=== PATIENT | female | born 1970 ===

== ENCOUNTER 2016-06-23 11:36 | Inpatient (IN) | payer OTHER ==
[2016-06-23 11:37] VITALS: BMI 32.5
--- NOTE | 2016-06-23 12:01 | ED PDOC ---
HPI: Abdomen Time Seen by Provider: 06/23/16 11:53 History Per: Patient (RUQ abd pain assoc with nausea, no vomiting or diarrhea. H /o gallstones) Onset/Duration Of Symptoms: Days (2) Current Symptoms Are (Timing): Intermittent Episodes Severity: Mild Pain Scale Rating Of: 3 Location Of Pain/Discomfort: RUQ Quality Of Discomfort: Unable To Describe Associated Symptoms: Nausea. denies: Vomiting, Diarrhea, Urinary Symptoms Exacerbating Factors: None Alleviating Factors: None Past Medical History Vital Signs: Last Vital Signs Temp 101 F H 06/23/16 11:44 Pulse 98 H 06/23/16 11:44 Resp 18 06/23/16 11:44 BP 124/86 06/23/16 11:44 Pulse Ox 100 06/23/16 12:01 - Medical History PMH: Gall Bladder Disease, Kidney Stones (questionable hx), Chronic Kidney Disease - Surgical History Surgical History: Comment Only: Cholecystectomy (pt denies) - Family History Family History: States: Unknown Family Hx - Home Medications Home Medications: Ambulatory Orders Medication Instructions Recorded Esomeprazole Magnesium [Nexium] 20 mg PO DAILY #30 barbara. 06/30/15 Dicyclomine [Bentyl] 20 mg PO Q6 PRN #12 tab 08/04/15 Famotidine [Pepcid] 40 mg PO DAILY #10 tab 08/04/15 Omeprazole 40 mg PO DAILY #30 tab 08/04/15 Ondansetron [Zofran] 4 mg PO Q8H #8 tab 08/04/15 oxyCODONE/Acetaminophen [Percocet 1 ea PO Q6 PRN #10 tab 08/04/15 5/325 mg Tab] Naproxen [Naprosyn] 500 mg PO Q12H #20 tab 10/01/15 Sulfamethoxazole/Trimethoprim 1 tab PO BID #20 tab 10/01/15 [Bactrim DS 800 mg-160 mg] Ibuprofen [Motrin] 400 mg PO Q6 #30 tab 01/20/16 Methocarbamol [Robaxin] 500 mg PO BID #16 tab 01/20/16 Naproxen 1 tab PO BID PRN #14 tab 01/25/16 diaZEpam [Valium] 5 mg PO Q6 PRN #8 tab 01/25/16 - Allergies Allergies/Adverse Reactions: Allergies Allergy/AdvReac Type Severity Reaction Status Date / Time No Known Allergies Allergy Verified 01/20/16 15:24 Review of Systems ROS Statement: Except As Marked, All Systems Reviewed And Found Negative Gastrointestinal: Positive for: Nausea, Abdominal Pain Physical Exam - Reviewed Nursing Documentation Reviewed: Yes Vital Signs Reviewed: Yes - Physical Exam Appears: Positive for: Non-toxic, No Acute Distress Head Exam: Positive for: ATRAUMATIC, NORMAL INSPECTION, NORMOCEPHALIC Skin: Positive for: Normal Color, Warm, DRY Eye Exam: Positive for: EOMI, Normal appearance, PERRL ENT: Positive for: Normal ENT Inspection Neck: Positive for: Normal, Painless ROM Cardiovascular/Chest: Positive for: Regular Rate, Rhythm Respiratory: Positive for: CNT, Normal Breath Sounds Gastrointestinal/Abdominal: Positive for: Bowel Sounds, Soft, Tenderness (Mild tenderness RUQ) Back: Positive for: Normal Inspection Extremity: Positive for: Normal ROM Neurologic/Psych: Positive for: Alert, Oriented - Laboratory Results Result Diagrams: 06/23/16 12:15 06/23/16 12:15 - ECG O2 Sat by Pulse Oximetry: 100 Disposition - Clinical Impression Clinical Impression: Cholecystitis - Patient ED Disposition Is Patient to be Admitted: Yes - Disposition Disposition Time: 15:12 Condition: FAIR - Pt Status Changed To: Hospital Disposition Of: Inpatient - Admit Certification Admit to Inpatient:: After my assessment, the patient will require hospitalization for at least two midnights. This is because of the severity of symptoms shown, intensity of services needed, and/or the medical risk in this patient being treated as an outpatient. - POA Present On Arrival: None
[2016-06-23 12:44] LABS: BASO % 0.7 % (0.0-2.0); EOS # 0.2 K/uL (0.0-0.7); HEMATOCRIT 36.1 % (34.0-47.0); LYMPH # 1.8 K/uL (1.0-4.3); LYMPH % 30.7 % (20.0-40.0); MEAN CELL VOLUME 78.6 fl (81.0-99.0); MEAN CORPUSCULAR HEMOGLOBIN 26.1 pg (27.0-31.0); MEAN CORPUSCULAR HGB CONC 33.3 g/dL (33.0-37.0); MEAN PLATELET VOLUME 9.2 fl (7.2-11.7); MONO # 0.3 K/uL (0.0-0.8); MONO % 4.3 % (0.0-10.0); NEUT # 3.6 K/uL (1.8-7.0); NEUT % 61.3 % (50.0-75.0); NRBC % 0.1 % (0.0-0.0); RED CELL DISTRIBUTION WIDTH 14.6 % (11.5-14.5); WHITE BLOOD COUNT 5.8 K/uL (4.8-10.8)
[2016-06-23 12:53] LABS: ALB/GLOB RATIO 0.9 (1.0-2.1); ALT/SGPT 40 U/L (9-52); AST/SGOT 61 U/L (14-36); BILIRUBIN,TOTAL 1.1 mg/dl (0.2-1.3); BLOOD UREA NITROGEN 14 mg/dl (7-17); CALCIUM 9.7 mg/dL (8.4-10.2); CARBON DIOXIDE 23 mmol/L (22-30); CHLORIDE 104 mmol/L (98-107); GFR AFRICAN-AMERICAN > 60; GLUCOSE,RANDOM 133 mg/dL (65-105); POTASSIUM 5.3 MMOL/L (3.6-5.0); SODIUM 144 mmol/l (132-148); TOTAL PROTEIN 9.2 G/DL (6.3-8.2)
[2016-06-23 12:55] LABS: ALKALINE PHOSPHATASE 91 U/L (38-126)
--- NOTE | 2016-06-23 14:42 | US ---
HISTORY: RUQ pain, h/o gallstones COMPARISON: Comparison is made to the previous study dated 05/19/2015 and study dated 08/04/2015 TECHNIQUE: Sonographic evaluation of the right upper quadrant of the abdomen. FINDINGS: LIVER: Measures 19.1 cm in length. Heterogeneous diffuse increased echogenicity of the liver parenchyma. No mass. No intrahepatic bile duct dilatation. GALLBLADDER: Again seen are gallstones. The gallbladder wall measures 2.8 millimeter in thickness. COMMON BILE DUCT: Measures 7.5 mm. No stones. No dilatation. PANCREAS: Unremarkable as visualized. No mass. No ductal dilatation. RIGHT KIDNEY: Measures 10.8 x 6.3 x 4.8 cm in length. Normal echogenicity. No calculus, mass, or hydronephrosis. AORTA: No aneurysmal dilatation. IVC: Unremarkable. OTHER FINDINGS: None . IMPRESSION: Re- demonstration of multiple gallstones. The possibility of acute cholecystitis is not totally excluded. If indicated further assessment by MRCP or hepatobiliary scan may be obtained. Hepatomegaly with findings suggestive of moderate hepatic steatosis.
[2016-06-23] MEDS ORDERED: Piperacillin/Tazobact 3.375 GM in Sodium Chloride 0.9% 100 ML IVPB STA (15:11)
[2016-06-23] MEDS ORDERED: Piperacillin/Tazobact 3.375 gm Inj IVPB ONE (15:46)
--- NOTE | 2016-06-23 15:50 | CP.PCM.CON ---
History of Present Illness - History of Present Illness History of Present Illness: General Surgery - Dr. Martinez 46 yo F w/ hx of gallstones presents w/ 3 days of worsening RUQ abdominal pain and fevers. Pt states she's had multiple episodes of this pain in the past and was told she had gallstones. Pt states her pain began 3 days ago, located in the RUQ radiating to the back, progressively worsening. She had associated nausea intermittently, no vomiting, and has been tolerating liquids. Pt also admits to Dizziness, mild Dysuria for the past 1 week, and Fevers since Wednesday which she has taken tylenol for. Pt denies any Headache, Diarrhea, Constipation , SOB, Chest pain. PMH: none PSH: , ankle surgery as a child No medications NKDA PT was seen in the ED. Vitals w/ temp of 101F, HR 98, BP 124/70. An U/S of the RUQ was done which showed multiple gallstones, Gb wall 2.8mm, CBD 7.5mm, no pericholecystic fluid. Surgery was consulted for possible cholecystitis. Review of Systems - Review of Systems All systems: reviewed and no additional remarkable complaints except (as per HPI ) Past Patient History - Past Social History Smoking Status: Never Smoked - RENAL Hx Chronic Kidney Disease: Yes Hx Kidney Stones: Yes (questionable hx) - GASTROINTESTINAL Hx Gall Bladder Disease: Yes - PSYCHIATRIC Hx Substance Use: No - SURGICAL HISTORY Hx Cholecystectomy: (pt denies) - ANESTHESIA Hx Anesthesia: Yes Meds Allergies/Adverse Reactions: Allergies Allergy/AdvReac Type Severity Reaction Status Date / Time No Known Allergies Allergy Verified 01/20/16 15:24 - Medications Medications: Current Medications Acetaminophen (Tylenol 650 Mg Supp) 650 mg [place] Q6 PRN PRN Reason: Fever >100.4 F Piperacillin Sod/Tazobactam (Sod 3.375 gm/ Sodium Chloride) 100 mls @ 100 mls/ hr IVPB STAT STA Stop: 06/23/16 16:10 Sodium Chloride (Sodium Chloride 0.9%) 1,000 mls @ 1,000 mls/hr IV .Q1H PEGGY Piperacillin Sod/Tazobactam (Sod 3.375 gm/ Sodium Chloride) 100 mls @ 100 mls/ hr IVPB Q6 PEGGY Morphine Sulfate (Morphine) 4 mg IVP Q4 PRN PRN Reason: Pain, moderate (4-7) Ondansetron HCl (Zofran Inj) 4 mg IVP Q4H PRN PRN Reason: Nausea/Vomiting Physical Exam - Constitutional Appears: No Acute Distress - Head Exam Head Exam: ATRAUMATIC, NORMAL INSPECTION, NORMOCEPHALIC - Eye Exam Eye Exam: Normal appearance. absent: Scleral icterus - ENT Exam ENT Exam: Mucous Membranes Dry - Respiratory Exam Respiratory Exam: NORMAL BREATHING PATTERN. absent: Respiratory Distress - Cardiovascular Exam Cardiovascular Exam: Tachycardia (90s), REGULAR RHYTHM - GI/Abdominal Exam GI & Abdominal Exam: Guarding (voluntary), Soft, Tenderness (RUQ, +Lal's sign ). absent: Distended, Firm, Hernia, Rebound, Rigid - Back Exam Back exam: CVA tenderness (R) - Neurological Exam Neurological exam: Alert, Oriented x3 - Psychiatric Exam Psychiatric exam: Normal Affect, Normal Mood - Skin Skin Exam: Dry, Intact Results - Vital Signs Recent Vital Signs: Last Vital Signs Temp 101 F H 06/23/16 11:44 Pulse 98 H 06/23/16 11:44 Resp 18 06/23/16 11:44 BP 124/86 06/23/16 11:44 Pulse Ox 100 06/23/16 15:12 - Labs Result Diagrams: 06/23/16 12:15 06/23/16 12:15 Labs: Laboratory Results - last 24 hr 06/23/16 12:15 WBC 5.8 RBC 4.59 Hgb 12.0 Hct 36.1 MCV 78.6 L MCH 26.1 L MCHC 33.3 RDW 14.6 H Plt Count 208 MPV 9.2 Neut % (Auto) 61.3 Lymph % (Auto) 30.7 [place] % (Auto) 4.3 Eos % (Auto) 3.0 Baso % (Auto) 0.7 Neut # 3.6 Lymph # 1.8 [place] # 0.3 Eos # 0.2 Baso # 0.0 Sodium 144 Potassium 5.3 H Chloride 104 Carbon Dioxide 23 Anion Gap 22 H BUN 14 Creatinine 0.6 L Est GFR ( Amer) > 60 Est GFR (Non-Af Amer) > 60 Random Glucose 133 H Calcium 9.7 Total Bilirubin 1.1 AST 61 H D ALT 40 Alkaline Phosphatase 91 Total Protein 9.2 H Albumin 4.4 Globulin 4.8 H Albumin/Globulin Ratio 0.9 L - Imaging and Cardiology US - abdomen Status: Image reviewed by me, Report reviewed by me Assessment & Plan - Assessment and Plan (Free Text) Assessment: 46 yo F w/ Gallstones, RUQ pain and Fevers, concern for acute cholecystitis -Admitted to medical service -U/S shows multiple gallstones, no wall thickening or pericholecystic fluid -Urinalysis ordered to eval. dysuria, if abnormal would consider CT to R/O pyelonephritis -Maintain NPO -IVF hydration -IV Abx -Will DW Dr. Juan Figueroa PGY2
[2016-06-23] MEDS: Sodium Chloride 0.9% 1,000 ML IV SCH ×3 (16:00→18:45)
--- NOTE | 2016-06-23 16:06 | CP.PCM.HP ---
History of Present Illness - History of Present Illness History of Present Illness: 46 yo female with no significant PMH came in with RUQ pain since 3 days ago accompanied with fever, nausea and vomiting. Pain was non-radiating and continuous since 3 days ago. Present on Admission - Present on Admission Any Indicators Present on Admission: No History of DVT/PE: No History of Uncontrolled Diabetes: No Urinary Catheter: No Decubitus Ulcer Present: No Review of Systems - Review of Systems All systems: reviewed and no additional remarkable complaints except (aside from those mentioned above, 12 point system review were negative by me) Past Patient History - Past Social History Smoking Status: Never Smoked Chewing Tobacco Use: No Cigar Use: No Alcohol: None Drugs: Denies - CARDIAC Hx Cardiac Disorders: No - PULMONARY Hx Respiratory Disorders: No - NEUROLOGICAL Hx Neurological Disorder: No - HEENT Hx HEENT Problems: No - RENAL Hx Chronic Kidney Disease: Yes Hx Kidney Stones: Yes (questionable hx) - ENDOCRINE/METABOLIC Hx Endocrine Disorders: No - HEMATOLOGICAL/ONCOLOGICAL Hx Blood Disorders: No - INTEGUMENTARY Hx Dermatological Problems: No - MUSCULOSKELETAL/RHEUMATOLOGICAL Hx Musculoskeletal Disorders: No - GASTROINTESTINAL Hx Gall Bladder Disease: Yes - GENITOURINARY/GYNECOLOGICAL Hx Genitourinary Disorders: No - PSYCHIATRIC Hx Psychophysiologic Disorder: No Hx Substance Use: No - SURGICAL HISTORY Hx Section: Yes (3 x) Hx Cholecystectomy: (pt denies) Hx Orthopedic Surgery: Yes (right foot) - ANESTHESIA Hx Anesthesia: Yes Hx Anesthesia Reactions: No Meds Allergies/Adverse Reactions: Allergies Allergy/AdvReac Type Severity Reaction Status Date / Time No Known Allergies Allergy Verified 01/20/16 15:24 Physical Exam - Constitutional Appears: No Acute Distress - Head Exam Head Exam: ATRAUMATIC - Eye Exam Eye Exam: absent: Scleral icterus - ENT Exam ENT Exam: Mucous Membranes Moist - Neck Exam Neck exam: Negative for: Meningismus - Respiratory Exam Respiratory Exam: absent: Rhonchi, Wheezes, Respiratory Distress - Cardiovascular Exam Cardiovascular Exam: REGULAR RHYTHM, +S1, +S2 - GI/Abdominal Exam GI & Abdominal Exam: Soft, Tenderness (tender right upper quadrant on palpation) . absent: Guarding, Rebound - Rectal Exam Rectal Exam: Deferred - Back Exam Back exam: absent: tenderness - Neurological Exam Neurological exam: Alert, Oriented x3 - Psychiatric Exam Psychiatric exam: Normal Affect - Skin Skin Exam: Dry, Intact Results - Vital Signs Recent Vital Signs: Last Vital Signs Temp 101 F H 06/23/16 11:44 Pulse 98 H 06/23/16 11:44 Resp 18 06/23/16 11:44 BP 124/86 06/23/16 11:44 Pulse Ox 100 06/23/16 15:12 - Labs Result Diagrams: 06/23/16 12:15 06/23/16 12:15 Assessment & Plan (1) Cholecystitis Status: Acute Comment: place on observation in med/surg. blood culture x 2. keep NPO. surgical consult called by ER. Zosyn 3.375gm IV q 6hrs. Morphine 2mg IV q 4hrs prn pain. Zofran 4mg IV q 4hrs prn for nausea
[2016-06-23] MEDS ORDERED: Sod Polystyrene Sulf 15 gm/60 ml Oral Susp PO ONE (17:39)
[2016-06-23 18:38] LABS: RBC URINE 2 /hpf (0-3); URINE BACTERIA FEW (<OCC); URINE BILIRUBIN NEGATIVE (NEGATIVE); URINE BLOOD SMALL (NEGATIVE); URINE COLOR STRAW (YELLOW); URINE GLUCOSE (UA) NEG (Normal); URINE KETONE NEGATIVE (NEGATIVE); URINE LEUKOCYTE ESTERASE TRACE Leu/uL (Negative); URINE PROTEIN NEGATIVE (NEGATIVE); URINE UROBILINOGEN 0.2-1.0 mg/dL (0.2-1.0); WBC URINE 6 /hpf (0-5)
[2016-06-23] MEDS: Piperacillin/Tazobact 3.375 GM in Sodium Chloride 0.9% 100 ML IVPB SCH (21:32)
[2016-06-24] MEDS: Piperacillin/Tazobact 3.375 GM in Sodium Chloride 0.9% 100 ML IVPB SCH ×4 (04:47→21:11)
[2016-06-24] MEDS: Sodium Chloride 0.9% 1,000 ML IV SCH ×2 (09:29→16:00)
[2016-06-24 11:22] LABS: HEMATOCRIT 32.5 % (34.0-47.0); MEAN CELL VOLUME 77.9 fl (81.0-99.0); MEAN CORPUSCULAR HEMOGLOBIN 26.3 pg (27.0-31.0); MEAN CORPUSCULAR HGB CONC 33.7 g/dL (33.0-37.0)
[2016-06-24 11:28] LABS: CHLORIDE 106 mmol/L (98-107); POTASSIUM 3.9 MMOL/L (3.6-5.0); SODIUM 143 mmol/l (132-148)
[2016-06-24 11:30] LABS: AST/SGOT 35 U/L (14-36); BILIRUBIN,TOTAL 0.7 mg/dl (0.2-1.3); CARBON DIOXIDE 26 mmol/L (22-30); GFR AFRICAN-AMERICAN > 60; PARTIAL THROMBOPLASTIN TIME 23.7 SECONDS (23.3-32.5)
[2016-06-24 11:31] LABS: ALKALINE PHOSPHATASE 88 U/L (38-126); ALT/SGPT 39 U/L (9-52); BLOOD UREA NITROGEN 11 mg/dl (7-17); CALCIUM 8.6 mg/dL (8.4-10.2); GLUCOSE,RANDOM 131 mg/dL (65-105); TOTAL PROTEIN 7.4 G/DL (6.3-8.2)
--- NOTE | 2016-06-24 11:39 | CARD ---
APPROVED REPORT EKG Measurement Heart [id number] <Conclusion> Normal sinus rhythm with sinus arrhythmia Normal ECG
--- NOTE | 2016-06-24 13:26 | MRI ---
MRCP Indication: Dilated CBD Technique: Multiplanar, multisequence MR images of the abdomen were obtained, including heavily T2 weighted MRCP images of the biliary system. Rotating maximum intensity projection images of the biliary system were generated. A total of 691 images were submitted for review. Comparison: Limited abdominal ultrasound performed 06/23/16, abdominal ultrasound performed 08/04/15 Findings: Hepatic steatosis. Hepatomegaly. Probable cholelithiasis within a contracted gallbladder. There is no intrahepatic biliary ductal dilatation. The common bile duct appears within normal limits in caliber and tapers distally. The pancreatic duct appears within normal limits of caliber. No filling defects are seen in the common bile duct or pancreatic duct. The noncontrast included portions adrenal glands, kidneys, spleen, and pancreas appear unremarkable. No bulky abdominal lymphadenopathy is seen. No ascites. No acute osseous abnormality is detected. Impression: Probable cholelithiasis within a contracted gallbladder No filling defects seen within the common bile duct which appears within normal limits of caliber. Hepatomegaly. Hepatic steatosis. Preliminary impression was provided by virtual radiologic.
--- NOTE | 2016-06-24 14:58 | CP.PCM.PN ---
Subjective - Date & Time of Evaluation Date of Evaluation: 06/24/16 Time of Evaluation: 13:45 - Subjective Subjective: Pt seen and examined. Awaiting surgery. Objective - Vital Signs/Intake and Output Vital Signs (last 24 hours): Temp Pulse Resp BP Pulse Ox 98.3 F 76 20 113/74 97 06/24/16 08:15 06/24/16 08:15 06/24/16 08:15 06/24/16 08:15 06/24/16 08:15 - Medications Medications: Current Medications Acetaminophen (Tylenol 650 Mg Supp) 650 mg [place] Q6 PRN PRN Reason: Fever >100.4 F Piperacillin Sod/Tazobactam (Sod 3.375 gm/ Sodium Chloride) 100 mls @ 100 mls/ hr IVPB Q6 PEGGY Last Admin: 06/24/16 09:26 Dose: 100 mls/hr Sodium Chloride (Sodium Chloride 0.9%) 1,000 mls @ 125 mls/hr IV .Q8H PEGGY Stop: 06/24/16 17:01 Last Admin: 06/24/16 09:29 Dose: 125 mls/hr Morphine Sulfate (Morphine) 4 mg IVP Q4 PRN PRN Reason: Pain, moderate (4-7) Ondansetron HCl (Zofran Inj) 4 mg IVP Q4H PRN PRN Reason: Nausea/Vomiting - Labs Labs: 06/24/16 11:07 06/24/16 11:07 PT 10.1 SECONDS (9.6-11.2) 06/24/16 11:07 INR 0.97 (0.92-1.08) 06/24/16 11:07 APTT 23.7 SECONDS (23.3-32.5) 06/24/16 11:07 - Constitutional Appears: No Acute Distress - Head Exam Head Exam: ATRAUMATIC - Eye Exam Eye Exam: absent: Scleral icterus - ENT Exam ENT Exam: Mucous Membranes Moist - Neck Exam Neck Exam: absent: Meningismus - Respiratory Exam Respiratory Exam: absent: Rhonchi, Wheezes, Respiratory Distress - Cardiovascular Exam Cardiovascular Exam: REGULAR RHYTHM, +S1, +S2 - GI/Abdominal Exam GI & Abdominal Exam: Soft, Tenderness (tenderness on RUQ) - Rectal Exam Rectal Exam: Deferred - Extremities Exam Extremities Exam: absent: Pedal Edema - Neurological Exam Neurological Exam: Alert, Oriented x3 - Psychiatric Exam Psychiatric exam: Normal Affect - Skin Skin Exam: Dry, Intact Assessment and Plan (1) Cholecystitis Status: Acute
[2016-06-24] MEDS ORDERED: Propofol 10 mg/ml Inj (20 ML) ONE (16:58)
[2016-06-24] MEDS ORDERED: Midazolam 2 MG/2 ML VIAL ONE (16:58)
[2016-06-24] MEDS ORDERED: Neostigmine Methylsulfate 3mg/3ml Syringe IV ONE (16:58)
[2016-06-24] MEDS ORDERED: Rocuronium 10 mg/ml (5 ml) ONE (16:58)
[2016-06-24] MEDS ORDERED: Lactated Ringer's 1,000 ML IV ONE ×2 (17:10→17:57)
--- NOTE | 2016-06-24 18:48 | PCM.SURG1 ---
Surgeon's Initial Post Op Note - Surgeon's Notes Surgeon: Dr. Vergara Air Quality Engineer: Dr. Figueroa Type of Anesthesia: General Endo Anesthesia Administered By: Nalini Pre-Operative Diagnosis: Acute Cholecystitis Operative Findings: same Post-Operative Diagnosis: same Operation Performed: Laparoscopic Cholecystectomy Specimen/Specimens Removed: gallbladder Estimated Blood Loss: EBL {In ML}: 5 Blood Products Given: N/A Drains Used: No Drains Post-Op Condition: Good Date of Surgery/Procedure: 06/24/16 Time of Surgery/Procedure: 18:48
[2016-06-24] MEDS ORDERED: DiphenhydrAMINE 50 mg/ml Inj IVP PRN (19:00)
[2016-06-24] MEDS ORDERED: HYDROmorphone 0.5 mg/0.5 ml ISec IVP PRN (19:00)
--- NOTE | 2016-06-24 22:59 | OP ---
PROCEDURE DATE: 06/24/2016 SURGEON: Dr. Vergara. FAMILY LAWYER: Dr. Figueroa. ANESTHESIA: General, Dr. Gayle. PREOPERATIVE DIAGNOSIS: Acute cholecystitis. POSTOPERATIVE DIAGNOSIS: Acute cholecystitis. PROCEDURE: Laparoscopic cholecystectomy. DESCRIPTION OF OPERATION: With the patient in the supine position under adequate general anesthesia, the abdomen was prepped and draped in the usual sterile manner. Veress needle puncture was performe d at the umbilicus with insufflation to 15 cm water pressure of CO2 and a 10 mm laparoscopic trocar w as inserted via an infraumbilical incision. Under direct vision, additional trocars were inserted in the epigastrium and costal margin. The gallbladder was identified. It was noted to be flaccid but with stones noted in the infundibular portion. The gallbladder fundus was grasped and elevated. Adh esions of the omentum to the infundibular portion of the gallbladder were taken down and the infundib ular area was grasped and retracted laterally. There was significant inflammation around the gallbla dder infundibulum as well as a caudate liver lobe, which impaired visualization of the lower portion of the gallbladder. There was noted to be a stone impacted close to the infundibular area of the gal lbladder, which then tapered below that and this portion of the gallbladder was dissected and then tr iply clipped and divided. The stump was reinforced with a Vicryl Endoloop. The cystic artery was id entified and dissected. It was triply clipped and divided and the gallbladder was dissected free of the liver bed using electrocautery. The gallbladder was placed in a specimen retrieval bag and remov ed via the umbilical port site. Omental adhesions to the area of the umbilicus were taken down to fa cilitate removal of the gallbladder and closure. The right upper quadrant was irrigated and suctione d. The pneumoperitoneum was released and the trocars were removed. The umbilical port site was clos ed with a [id number] fascial suture of 0 Vicryl. All incisions were closed with 4-0 Monocryl baeza bcuticular sutures and Steri-Strips. Dry sterile dressings were applied. The patient tolerated the procedure well and transferred to the recovery room in stable condition. Estimated blood loss for th e procedure was 5 mL. Miladys Vergara MD cc: 58 TT: 06/24/2016 22:58:56 dn
[2016-06-25] MEDS: Piperacillin/Tazobact 3.375 GM in Sodium Chloride 0.9% 100 ML IVPB SCH ×2 (04:36→10:51)
[2016-06-25 06:43] VITALS: O2SAT 97
[2016-06-25 08:02] VITALS: BP 106/71; PULSE 83; RESP 20; TEMP 99
--- NOTE | 2016-06-25 10:15 | CP.PCM.PN ---
Subjective - Date & Time of Evaluation Date of Evaluation: 06/25/16 Time of Evaluation: 10:14 - Subjective Subjective: General Surgery - Dr. Vergara Pt S&E. PERICO. Pt is doing well post-operatively. She states her pain is minimal, recieved pain medicine once overnight and felt mild nausea afterwards. She is tolerating regular diet. She has been OOB and ambulated to the bathroom. No Vomiting, F/C, SOB/Cp. Objective - Vital Signs/Intake and Output Vital Signs (last 24 hours): Temp Pulse Resp BP Pulse Ox 99.0 F 83 20 106/71 97 06/25/16 08:01 06/25/16 08:01 06/25/16 08:01 06/25/16 08:01 06/25/16 08:01 Intake and Output: 06/25/16 06/25/16 06:59 18:59 Intake Total 150 Balance 150 - Medications Medications: Current Medications Acetaminophen (Tylenol 650 Mg Supp) 650 mg [place] Q6 PRN PRN Reason: Fever >100.4 F Piperacillin Sod/Tazobactam (Sod 3.375 gm/ Sodium Chloride) 100 mls @ 100 mls/ hr IVPB Q6 PEGGY Last Admin: 06/25/16 04:36 Dose: 100 mls/hr Morphine Sulfate (Morphine) 4 mg IVP Q4 PRN PRN Reason: Pain, moderate (4-7) Last Admin: 06/25/16 08:26 Dose: 4 mg Ondansetron HCl (Zofran Inj) 4 mg IVP Q4H PRN PRN Reason: Nausea/Vomiting - Labs Labs: 06/24/16 11:07 06/24/16 11:07 PT 10.1 SECONDS (9.6-11.2) 06/24/16 11:07 INR 0.97 (0.92-1.08) 06/24/16 11:07 APTT 23.7 SECONDS (23.3-32.5) 06/24/16 11:07 - Constitutional Appears: No Acute Distress - Head Exam Head Exam: ATRAUMATIC, NORMAL INSPECTION, NORMOCEPHALIC - Respiratory Exam Respiratory Exam: NORMAL BREATHING PATTERN. absent: Respiratory Distress - Cardiovascular Exam Cardiovascular Exam: REGULAR RHYTHM - GI/Abdominal Exam GI & Abdominal Exam: Soft. absent: Distended, Guarding, Tenderness Additional comments: surgical dressings C/d/i - Neurological Exam Neurological Exam: Alert, Oriented x3 - Psychiatric Exam Psychiatric exam: Normal Affect, Normal Mood - Skin Skin Exam: Dry, Intact Assessment and Plan - Assessment and Plan (Free Text) Assessment: 46yo F s/p laparoscopic cholecystectomy, POD #1 -Pt doing well post-operatively -Clear for discharge home from surgical standpoint -Pt may resume regular diet and light activities. No heavy lifting >10lbs for at least 4 weeks. Pt may remove dressings and shower in 2 days, steri-strips to remain in place until they fall off on their own. Pt should make an appointment to see Dr. Vergara in office in [address] Jai Figueroa PGY2
--- NOTE | 2016-06-25 13:40 | CP.PCM.DIS ---
Provider - Provider Date of Admission: 06/23/16 15:12 Attending physician: Abdullahi Torres MD Consults: Dr Vergara Time Spent in preparation of Discharge (in minutes): 30 Diagnosis - Discharge Diagnosis (1) Cholecystitis Status: Acute Comment: had lap cholecystectomy yesterday and did well. able to tolerate regular food intake. able to pass flatus. for discharge today Hospital Course - Lab Results Lab Results: Most Recent Lab Values WBC 6.0 K/uL (4.8-10.8) 06/24/16 11:07 RBC 4.17 Mil/uL (3.80-5.20) 06/24/16 11:07 Hgb 10.9 g/dL (12.0-16.0) L 06/24/16 11:07 Hct 32.5 % (34.0-47.0) L 06/24/16 11:07 MCV 77.9 fl (81.0-99.0) L 06/24/16 11:07 MCH 26.3 pg (27.0-31.0) L 06/24/16 11:07 MCHC 33.7 g/dL (33.0-37.0) 06/24/16 11:07 RDW 15.0 % (11.5-14.5) H 06/24/16 11:07 Plt Count 201 K/uL (130-400) 06/24/16 11:07 MPV 9.2 fl (7.2-11.7) 06/23/16 12:15 Neut % (Auto) 61.3 % (50.0-75.0) 06/23/16 12:15 Lymph % (Auto) 30.7 % (20.0-40.0) 06/23/16 12:15 [place] % (Auto) 4.3 % (0.0-10.0) 06/23/16 12:15 Eos % (Auto) 3.0 % (0.0-4.0) 06/23/16 12:15 Baso % (Auto) 0.7 % (0.0-2.0) 06/23/16 12:15 Neut # 3.6 K/uL (1.8-7.0) 06/23/16 12:15 Lymph # 1.8 K/uL (1.0-4.3) 06/23/16 12:15 [place] # 0.3 K/uL (0.0-0.8) 06/23/16 12:15 Eos # 0.2 K/uL (0.0-0.7) 06/23/16 12:15 Baso # 0.0 K/uL (0.0-0.2) 06/23/16 12:15 PT 10.1 SECONDS (9.6-11.2) 06/24/16 11:07 INR 0.97 (0.92-1.08) 06/24/16 11:07 APTT 23.7 SECONDS (23.3-32.5) 06/24/16 11:07 Sodium 143 mmol/l (132-148) 06/24/16 11:07 Potassium 3.9 MMOL/L (3.6-5.0) 06/24/16 11:07 Chloride 106 mmol/L (98-107) 06/24/16 11:07 Carbon Dioxide 26 mmol/L (22-30) 06/24/16 11:07 Anion Gap 14 (10-20) 06/24/16 11:07 BUN 11 mg/dl (7-17) 06/24/16 11:07 Creatinine 0.7 mg/dL (0.7-1.2) 06/24/16 11:07 Est GFR ( Amer) > 60 06/24/16 11:07 Est GFR (Non-Af Amer) > 60 06/24/16 11:07 Random Glucose 131 mg/dL (65-105) H 06/24/16 11:07 Calcium 8.6 mg/dL (8.4-10.2) 06/24/16 11:07 Total Bilirubin 0.7 mg/dl (0.2-1.3) 06/24/16 11:07 AST 35 U/L (14-36) 06/24/16 11:07 ALT 39 U/L (9-52) 06/24/16 11:07 Alkaline Phosphatase 88 U/L (38-126) 06/24/16 11:07 Total Protein 7.4 G/DL (6.3-8.2) 06/24/16 11:07 Albumin 3.6 g/dL (3.5-5.0) 06/24/16 11:07 Globulin 3.8 gm/dL (2.2-3.9) 06/24/16 11:07 Albumin/Globulin Ratio 1.0 (1.0-2.1) 06/24/16 11:07 Urine Color Straw (YELLOW) 06/23/16 17:56 Urine Clarity Slighty-cloudy (Clear) 06/23/16 17:56 Urine pH 5.0 (5.0-8.0) 06/23/16 17:56 Ur Specific [place] 1.006 (1.003-1.030) 06/23/16 17:56 Urine Protein Negative mg/dL (NEGATIVE) 06/23/16 17:56 Urine Glucose (UA) Neg mg/dL (Normal) 06/23/16 17:56 Urine Ketones Negative mg/dL (NEGATIVE) 06/23/16 17:56 Urine Blood Small (NEGATIVE) 06/23/16 17:56 Urine Nitrate Negative (NEGATIVE) 06/23/16 17:56 Urine Bilirubin Negative (NEGATIVE) 06/23/16 17:56 Urine Urobilinogen 0.2-1.0 mg/dL (0.2-1.0) 06/23/16 17:56 Ur Leukocyte Esterase Trace [place]/uL (Negative) 06/23/16 17:56 Urine RBC (Auto) 2 /hpf (0-3) 06/23/16 17:56 Urine Microscopic WBC 6 /hpf (0-5) H 06/23/16 17:56 Ur Squamous Epith Cells 8 /hpf (0-5) H 06/23/16 17:56 Urine Bacteria Few (<OCC) H 06/23/16 17:56 - Hospital Course Hospital Course: 46 yo female with no significant PMH came in with RUQ pain accompanied with fever, nausea and vomiting. Diagnosed with acute cholecystitis patient had lap cholecystectomy and did well. Patient was discharged in stable condition the following day. Discharge Exam - Head Exam Head Exam: ATRAUMATIC, NORMAL INSPECTION, NORMOCEPHALIC - Eye Exam Eye Exam: absent: Scleral icterus - ENT Exam ENT Exam: Mucous Membranes Moist - Respiratory Exam Respiratory Exam: absent: Wheezes, Respiratory Distress - Cardiovascular Exam Cardiovascular Exam: REGULAR RHYTHM, +S1, +S2 - GI/Abdominal Exam GI & Abdominal Exam: Soft. absent: Tenderness - Rectal Exam Rectal Exam: Deferred - Back Exam Back exam: NORMAL INSPECTION - Neurological Exam Neurological exam: Alert, Oriented x3 - Psychiatric Exam Psychiatric exam: Normal Affect - Skin Skin Exam: Dry, Intact Discharge Plan - Discharge Medications Prescriptions: oxyCODONE/Acetaminophen [Percocet 5/325 mg Tab] 1 ea PO Q6 PRN #10 tab PRN Reason: Pain, Moderate (4-7) - Follow Up Plan Condition: FAIR Disposition: HOME/ ROUTINE Instructions: Oxycodone/Acetaminophen (By mouth), Laparoscopic Cholecystectomy (DC) Additional Instructions: NO HEAVY LIFTING. MAY SHOWER. Referrals: Miladys Vergara MD [Staff Provider] -
== END 2016-06-25 15:21 | disposition home or self-care (01) | DRG 493 ==
LOC: H.ER 11:36 → H.ERHOLD 15:12 → H.MEDSURG1 17:21
PROC: 0FT44ZZ Resection of Gallbladder, Percutaneous Endoscopic Approach (ICD-10-PCS; principal; 2016-06-24 15:45)
DX: K80.00 Calculus of gallbladder with acute cholecystitis without obstruction (principal); N18.9 Chronic kidney disease, unspecified

== ENCOUNTER 2016-07-06 17:55 | Emergency (ER) | payer OTHER ==
[2016-07-06 17:56] VITALS: BMI 32.5
[2016-07-06 18:13] VITALS: BP 125/72; PULSE 81; RESP 16; TEMP 98.2; O2SAT 99
--- NOTE | 2016-07-06 20:05 | ED PDOC ---
HPI: General Adult Time Seen by Provider: 07/06/16 19:08 Chief Complaint (Nursing): Abdominal Pain Chief Complaint (Provider): Open Wound on Abdomen History Per: Patient History/Exam Limitations: no limitations Onset/Duration Of Symptoms: Hrs Current Symptoms Are (Timing): Still Present Additional Complaint(s): 19:08 Marina Ayala is a 46 year old female that is s/p cholecystectomy, who presents to the ED today after a Steristrip came loose around her belly button. Patient reports that she was washing today and accidentally removed the Steristrip, and that there was some mild drainage around the belly button, but denies any pus. She complains only of pain around her belly button, and denies any pain in other areas of her lower abdomen, and denies any fevers. Patient states she is otherwise well and improving post surgery. Past Medical History Reviewed: Historical Data, Nursing Documentation, Vital Signs Vital Signs: Last Vital Signs Temp 98.2 F 07/06/16 18:11 Pulse 81 07/06/16 18:11 Resp 16 07/06/16 18:11 BP 125/72 07/06/16 18:11 Pulse Ox 99 07/06/16 18:11 - Medical History PMH: Gall Bladder Disease, Kidney Stones (questionable hx), Chronic Kidney Disease - Surgical History Surgical History: Cholecystectomy, - Family History Family History: States: Unknown Family Hx - Home Medications Home Medications: Ambulatory Orders Medication Instructions Recorded oxyCODONE/Acetaminophen [Percocet 1 ea PO Q6 PRN #10 tab 06/25/16 5/325 mg Tab] - Allergies Allergies/Adverse Reactions: Allergies Allergy/AdvReac Type Severity Reaction Status Date / Time No Known Allergies Allergy Verified 07/06/16 18:11 Review of Systems Constitutional: Negative for: Fever Gastrointestinal: Positive for: Abdominal Pain (pain localized around the belly button) Physical Exam - Reviewed Nursing Documentation Reviewed: Yes Vital Signs Reviewed: Yes - Physical Exam Appears: Positive for: Non-toxic, No Acute Distress Head Exam: Positive for: ATRAUMATIC, NORMOCEPHALIC Skin: Positive for: Normal Color, Warm, Dry Cardiovascular/Chest: Positive for: Regular Rate, Rhythm. Negative for: Murmur Respiratory: Positive for: Normal Breath Sounds. Negative for: Wheezing Gastrointestinal/Abdominal: Positive for: Soft, Other (0.5 cm open wound site. Steristrips in laproscopic sites, no drainage, no erythema). Negative for: Tenderness Neurologic/Psych: Positive for: Alert, Oriented - ECG O2 Sat by Pulse Oximetry: 99 (RA) Pulse Ox Interpretation: Normal Medical Decision Making Medical Decision Makin:48 Impression: Wound Care Plan: * Placed Steristrips on the open wound area and instructed family to return for worsening symptoms, such as abdominal pain or vomiting, and to follow up with patient's surgeon Dr. Vergara. Scribe Attestation: Documented by Ce Irene, acting as a scribe for Delvin Ndiaye MD. Provider Scribe Attestation: All medical record entries made by the Scribe were at my direction and personally dictated by me. I have reviewed the chart and agree that the record accurately reflects my personal performance of the history, physical exam, medical decision making, and the department course for this patient. I have also personally directed, reviewed, and agree with the discharge instructions and disposition. Disposition - Clinical Impression Clinical Impression: Encounter for wound care - Disposition Referrals: Miladys Vergara MD [Staff Provider] - Disposition Time: 19:48 Condition: GOOD Additional Instructions: Por favor regrese si experimenta fiebres, vmitos, empeoramiento del dolor abdominal u otros sntomas relacionados. Instructions: Steristrips (ED) Print Language: MALTESE
== END 2016-07-06 20:00 | disposition home or self-care (01) ==
LOC: H.ER 17:55
DX: Z48.817 Encounter for surgical aftercare following surgery on the skin and subcutaneous tissue (principal); R10.9 Unspecified abdominal pain; Z90.49 Acquired absence of other specified parts of digestive tract

== ENCOUNTER 2016-07-07 18:33 | Inpatient (IN) | payer OTHER ==
[2016-07-07 18:33] VITALS: BMI 32.5
[2016-07-07] MEDS ORDERED: Sodium Chloride 0.9% 1,000 ML IV STA (19:02)
[2016-07-07 19:22] LABS: BASO # 0.1 K/uL (0.0-0.2); BASO % 1.4 % (0.0-2.0); EOS # 0.5 K/uL (0.0-0.7); EOS % 5.2 % (0.0-4.0); HEMATOCRIT 32.9 % (34.0-47.0); LYMPH # 4.3 K/uL (1.0-4.3); LYMPH % 43.8 % (20.0-40.0); MEAN CELL VOLUME 78.2 fl (81.0-99.0); MEAN CORPUSCULAR HEMOGLOBIN 26.7 pg (27.0-31.0); MEAN CORPUSCULAR HGB CONC 34.1 g/dL (33.0-37.0); MEAN PLATELET VOLUME 8.8 fl (7.2-11.7); MONO # 0.5 K/uL (0.0-0.8); MONO % 5.6 % (0.0-10.0); NEUT # 4.3 K/uL (1.8-7.0); RED CELL DISTRIBUTION WIDTH 14.5 % (11.5-14.5); WHITE BLOOD COUNT 9.7 K/uL (4.8-10.8)
--- NOTE | 2016-07-07 19:23 | ED PDOC ---
HPI: General Adult Time Seen by Provider: 07/07/16 18:52 Chief Complaint (Nursing): Abdominal Pain Chief Complaint (Provider): abdominal swelling History Per: Patient History/Exam Limitations: no limitations Additional Complaint(s): 46yo female comes in for wound check after cholecystectomy by Dr. Vergara. Patient reports the wound has been bleeding. She was seen yesterday for this and was discharged but today she woke up from a nap with blood all over her abdomen, which appeared to come from the wound. Reports increased swelling from abdomen but she is eating well with no fever or chills. Reports normal stool except when wiping she notes a little bit of blood. Past Medical History Reviewed: Historical Data, Nursing Documentation, Vital Signs Vital Signs: Last Vital Signs Temp 97.0 F L 07/07/16 18:42 Pulse 83 07/07/16 18:42 Resp 18 07/07/16 18:42 BP 139/90 07/07/16 18:42 Pulse Ox 98 07/07/16 21:31 - Medical History PMH: Gall Bladder Disease, Kidney Stones (questionable hx), Chronic Kidney Disease - Surgical History Surgical History: Cholecystectomy, - Family History Family History: States: Unknown Family Hx - Home Medications Home Medications: Ambulatory Orders Medication Instructions Recorded oxyCODONE/Acetaminophen [Percocet 1 ea PO Q6 PRN #10 tab 06/25/16 5/325 mg Tab] - Allergies Allergies/Adverse Reactions: Allergies Allergy/AdvReac Type Severity Reaction Status Date / Time No Known Allergies Allergy Verified 07/06/16 18:11 Review of Systems ROS Statement: Except As Marked, All Systems Reviewed And Found Negative Gastrointestinal: Positive for: Other (abdominal swelling, blood from wound site ). Negative for: Nausea, Vomiting, Diarrhea Physical Exam - Reviewed Nursing Documentation Reviewed: Yes Vital Signs Reviewed: Yes - Physical Exam Appears: Positive for: Well, Non-toxic, No Acute Distress Head Exam: Positive for: ATRAUMATIC, NORMAL INSPECTION, NORMOCEPHALIC Skin: Positive for: Warm, Dry Gastrointestinal/Abdominal: Positive for: Soft, Other (Dried blood and umbilicus and steri strips in place at umbilicus. This area was cleaned with sterile saline and steri strips removed to reveal an intact wound that is not bleeding. On palpation of abdomen no fluid is expressed from wound although she had diffuse mild tenderness to palpation. Wounds in right upper quadrant clean, dry, intact.). Negative for: Mass, Distended, Guarding, Rebound - Laboratory Results Result Diagrams: 07/07/16 19:10 07/07/16 19:10 - ECG O2 Sat by Pulse Oximetry: 98 (RA) Pulse Ox Interpretation: Normal Medical Decision Making Medical Decision Making: Impression: wound check with abdominal swelling. Differential includes wound infection, abdominal abscess, post-op bleeding. plan: CT abd/pel w/ Labs IV Fluids reassess 2110 case discussed with [facility] Radiology 2110 CT abd/pel w/ IMPRESSION: Fatty liver; cholecystectomy, no ductal dilatation; postsurgical changes in the abdominal wall at the umbilicus with a 1.8 x 2 x 2.5 cm abscess in the abdominal wall inferior to the umbilicus 2119 Patient was screen for sepsis negative. Case discussed with Dr. Foote ( registered nurse surgical services), patient will be admitted for IV antibiotics. Discussed with patient findings and plan of care. WATSON Vergara Surgery. Disposition - Clinical Impression Clinical Impression: Abdominal abscess Counseled Patient/Family Regarding: Studies Performed, Diagnosis - Disposition Disposition Time: 21:00 Condition: SERIOUS - Pt Status Changed To: Hospital Disposition Of: Inpatient - Admit Certification Admit to Inpatient:: After my assessment, the patient will require hospitalization for at least two midnights. This is because of the severity of symptoms shown, intensity of services needed, and/or the medical risk in this patient being treated as an outpatient. - POA Present On Arrival: Surgical Site Infection Additional Comments - Additional Comments Additional Comments: Scribe Attestation: Documented by Nilay Morales acting as a scribe for Yamil Hernandez MD. Provider Scribe Attestation: All medical record entries made by the Scribe were at my direction and personally dictated by me. I have reviewed the chart and agree that the record accurately reflects my personal performance of the history, physical exam, medical decision making, and the department course for this patient. I have also personally directed, reviewed, and agree with the discharge instructions and disposition.
[2016-07-07 19:42] LABS: RBC URINE 7 /hpf (0-3); URINE BACTERIA RARE (<OCC); URINE BILIRUBIN NEGATIVE (NEGATIVE); URINE BLOOD SMALL (NEGATIVE); URINE COLOR YELLOW (YELLOW); URINE GLUCOSE (UA) NEG (Normal); URINE KETONE NEGATIVE (NEGATIVE); URINE LEUKOCYTE ESTERASE MOD Leu/uL (Negative); URINE PROTEIN NEGATIVE (NEGATIVE); URINE UROBILINOGEN 0.2-1.0 mg/dL (0.2-1.0); WBC URINE 17 /hpf (0-5)
[2016-07-07] MEDS ORDERED: Iohexol 300 100 ML IJ ONE (19:44)
[2016-07-07] MEDS ORDERED: Sodium Chloride 0.9% 50 ML IV ONE (19:44)
[2016-07-07 19:45] LABS: ALKALINE PHOSPHATASE 97 U/L (38-126); ALT/SGPT 33 U/L (9-52); AST/SGOT 32 U/L (14-36); BILIRUBIN,TOTAL 0.4 mg/dl (0.2-1.3); BLOOD UREA NITROGEN 19 mg/dl (7-17); CALCIUM 9.5 mg/dL (8.4-10.2); CARBON DIOXIDE 26 mmol/L (22-30); CHLORIDE 106 mmol/L (98-107); GFR AFRICAN-AMERICAN > 60; GLUCOSE,RANDOM 113 mg/dL (65-105); POTASSIUM 3.7 MMOL/L (3.6-5.0); SODIUM 144 mmol/l (132-148); TOTAL PROTEIN 8.3 G/DL (6.3-8.2)
--- NOTE | 2016-07-07 21:12 | CT ---
EXAM: CT Abdomen and Pelvis With Intravenous Contrast CLINICAL HISTORY: 46 years old, female; Signs and symptoms; Other: Swelling, and pain S/P cholecystectomy; Prior surgery; Surgery date: <1 month; Additional info: Abd swelling and pain S/P cholecystectomy. Sent mrcp TECHNIQUE: Axial computed tomography images of the abdomen and pelvis with intravenous contrast. This CT exam was performed using one or more of the following dose reduction techniques: automated exposure control, adjustment of the mA and/or kV according to patient size, and/or use of iterative reconstruction technique. Coronal and sagittal reformatted images were created and reviewed. CONTRAST: 95 mL of [id number] administered intravenously. EXAM DATE/TIME: 07/07/2016 7:01 PM COMPARISON: MRCP 06/23/2016 7:23:36 PM FINDINGS: Lower thorax: Heart size is normal. There is atelectasis and scarring at the lung bases right greater than left. ABDOMEN: Liver: There is fatty infiltration of the liver. Gallbladder and bile ducts: Gallbladder is surgically absent. There is minimal edema in the abelino hepatis. Common bile duct is unremarkable. Pancreas: unremarkable Spleen: unremarkable Adrenals: unremarkable Kidneys and ureters: unremarkable Stomach and bowel: Stomach is partially distended. Rotation is normal. There is no obstruction. Terminal ileum is unremarkable. Appendix is unremarkable.Colon is incompletely distended which limits evaluation.There is diverticulosis. Appendix: See stomach and bowel PELVIS: Bladder: unremarkable Reproductive: Uterus and adnexal structures are unremarkable. ABDOMEN and PELVIS: Intraperitoneal space: There is trace free fluid. There is no free air. Bones/joints: There are degenerative changes in the osseus structures. Soft tissues: There is a small fat-containing umbilical hernia. There is inflammation and edema at the umbilicus. The there is a 1.8 x 2 x 2.5 cm fluid collection with peripheral enhancement inferior to the umbilicus cutaneous fat of the abdominal wall. Vasculature: Vascular structures are unremarkable. Lymph nodes: There is no pathologic adenopathy. IMPRESSION: Fatty liver; cholecystectomy, no ductal dilatation; postsurgical changes in the abdominal wall at the umbilicus with a 1.8 x 2 x 2.5 cm abscess in the abdominal wall inferior to the umbilicus Additional findings as described above.
[2016-07-07] MEDS ORDERED: Piperacillin/Tazobact 3.375 GM in Sodium Chloride 0.9% 100 ML IV STA (21:21)
[2016-07-07] MEDS ORDERED: Piperacillin/Tazobact 3.375 gm Inj IVPB ONE (21:30)
[2016-07-07] MEDS ORDERED: Piperacillin/Tazobact 3.375 GM in Sodium Chloride 0.9% 100 ML IVPB STA (21:40)
--- NOTE | 2016-07-07 21:52 | CP.PCM.HP ---
History of Present Illness - History of Present Illness History of Present Illness: CC: abd wall abscess HPI: This is a 46 y/o female with no chronic medical conditions who comes in with abd wall abscess after recent cholecystectomy. Per patient, she had the procedure mid last week, and went home in stable condition. About 2 days ago, she developed pain and bloody drainage at umbilicus and malaise. Today the pain was more pronounced and there was significant amount of drainage so she came in. Denies f/c. Denies d. Has n but no v. Denies CP/SOB. CT does show abscess. ROS: 14 systems reviewed, negative other than HPI MHx: None SHx: Cholecystectomy, ?ankle surgery Allergies: NKDA Medications: None Family Hx: No relevant findings Social Hx: Lives at home, denies tobacco or EtOH Present on Admission - Present on Admission Any Indicators Present on Admission: No Past Patient History - Past Medical History & Family History Past Medical History?: No - Past Social History Smoking Status: Never Smoked - CARDIAC Hx Cardiac Disorders: No - PULMONARY Hx Respiratory Disorders: No - NEUROLOGICAL Hx Neurological Disorder: No - HEENT Hx HEENT Problems: No - RENAL Hx Chronic Kidney Disease: Yes Hx Kidney Stones: Yes (questionable hx) - ENDOCRINE/METABOLIC Hx Endocrine Disorders: No - HEMATOLOGICAL/ONCOLOGICAL Hx Blood Disorders: No - INTEGUMENTARY Hx Dermatological Problems: No - MUSCULOSKELETAL/RHEUMATOLOGICAL Hx Musculoskeletal Disorders: No - GASTROINTESTINAL Hx Gall Bladder Disease: Yes - GENITOURINARY/GYNECOLOGICAL Hx Genitourinary Disorders: No - PSYCHIATRIC Hx Psychophysiologic Disorder: No Hx Substance Use: No - SURGICAL HISTORY Hx Cholecystectomy: Yes - ANESTHESIA Hx Anesthesia: Yes Hx Anesthesia Reactions: No Meds Allergies/Adverse Reactions: Allergies Allergy/AdvReac Type Severity Reaction Status Date / Time No Known Allergies Allergy Verified 07/06/16 18:11 Physical Exam - Constitutional Appears: No Acute Distress - Head Exam Head Exam: ATRAUMATIC, NORMOCEPHALIC - Eye Exam Eye Exam: EOMI, PERRL - ENT Exam ENT Exam: Mucous Membranes Dry - Neck Exam Neck exam: Positive for: Full Rom - Respiratory Exam Respiratory Exam: Clear to Auscultation Bilateral, NORMAL BREATHING PATTERN - Cardiovascular Exam Cardiovascular Exam: REGULAR RHYTHM, +S1, +S2 - GI/Abdominal Exam GI & Abdominal Exam: Normal Bowel Sounds - Extremities Exam Extremities exam: Positive for: full ROM, normal inspection - Neurological Exam Neurological exam: Alert, CN II-XII Intact, Oriented x3 - Psychiatric Exam Psychiatric exam: Normal Affect, Normal Mood Results - Vital Signs Recent Vital Signs: Last Vital Signs Temp 97.0 F L 07/07/16 18:42 Pulse 83 07/07/16 18:42 Resp 18 07/07/16 18:42 BP 139/90 07/07/16 18:42 Pulse Ox 98 07/07/16 21:31 - Labs Result Diagrams: 07/07/16 19:10 07/07/16 19:10 Labs: Laboratory Results - last 24 hr 07/07/16 07/07/16 07/07/16 19:10 19:10 19:36 WBC 9.7 D RBC 4.21 Hgb 11.2 L Hct 32.9 L MCV 78.2 L MCH 26.7 L MCHC 34.1 RDW 14.5 Plt Count 308 D MPV 8.8 Neut % (Auto) 44.0 L Lymph % (Auto) 43.8 H [place] % (Auto) 5.6 Eos % (Auto) 5.2 H Baso % (Auto) 1.4 Neut # 4.3 Lymph # 4.3 [place] # 0.5 Eos # 0.5 Baso # 0.1 Sodium 144 Potassium 3.7 Chloride 106 Carbon Dioxide 26 Anion Gap 16 BUN 19 H Creatinine 0.9 Est GFR ( Amer) > 60 Est GFR (Non-Af Amer) > 60 Random Glucose 113 H Calcium 9.5 Total Bilirubin 0.4 AST 32 ALT 33 Alkaline Phosphatase 97 Total Protein 8.3 H Albumin 4.1 Globulin 4.2 H Albumin/Globulin Ratio 1.0 Urine Color Yellow Urine Clarity Slighty-cloudy Urine pH 6.0 Ur Specific [place] 1.018 Urine Protein Negative Urine Glucose (UA) Neg Urine Ketones Negative Urine Blood Small Urine Nitrate Negative Urine Bilirubin Negative Urine Urobilinogen 0.2-1.0 Ur Leukocyte Esterase Mod Urine RBC (Auto) 7 H Urine Microscopic WBC 17 H Ur Squamous Epith Cells 32 H Urine Bacteria Rare - Imaging and Cardiology CT scan - abdomen Status: Image reviewed by me (abd wall abscess below umbilicus, cholecystectomy , post-op changes) Assessment & Plan (1) Abdominal wall abscess Assessment and Plan: 46 y/o female with abd wall abscess following cholecystectomy. -NPO, IVF -Pain control per regimen -Zofran for nausea -Cont IV Zosyn 3.375 q6h IV per surgery -Surgical consult -SCDs for DVT PPx only Status: Acute (2) DVT prophylaxis Status: Acute
[2016-07-07] MEDS: Sodium Chloride 0.9% 1,000 ML IV SCH (22:27)
[2016-07-07] MEDS: Piperacillin/Tazobact 3.375 GM in Sodium Chloride 0.9% 100 ML IVPB SCH (22:34)
--- NOTE | 2016-07-07 23:02 | CP.PCM.CON ---
History of Present Illness - History of Present Illness History of Present Illness: Surgery: Dr. Vergara CC: Drainage from surgical site HPI: 46F w. recent laparoscopic cholecystectomy on 06/[address] Vergara, presents to ED with foul smelling blood draining from umbilical port site. Pt initially presented to ED yesterday, but symptoms were minor. Today she presents w. pain. Pain is sharp, worse w. activity/movement. There is increased drainage from surgical site compared to yesterday. Drainage has foul odor. Pt reports fever, no chills. Denies N/V/D. Does have decreased appetite. Reports DEXTER. No blurred vision. No CP/palpitations, no SOB/cough, no hematuria/dysuria. PMH: kidney stones PSH: c-sectionx3, cholecystectomy, R ankle Meds: MAR reviewed NKDA Social: No ETOH/tobacco/drugs Fhx: Non-contributory Review of Systems - Review of Systems All systems: reviewed and no additional remarkable complaints except (HPI) Past Patient History - Past Medical History & Family History Past Medical History?: No - Past Social History Smoking Status: Never Smoked - CARDIAC Hx Cardiac Disorders: No - PULMONARY Hx Respiratory Disorders: No - NEUROLOGICAL Hx Neurological Disorder: No - HEENT Hx HEENT Problems: No - RENAL Hx Chronic Kidney Disease: Yes - ENDOCRINE/METABOLIC Hx Endocrine Disorders: No - HEMATOLOGICAL/ONCOLOGICAL Hx Blood Disorders: No - INTEGUMENTARY Hx Dermatological Problems: No - MUSCULOSKELETAL/RHEUMATOLOGICAL Hx Musculoskeletal Disorders: No - GASTROINTESTINAL Hx Gall Bladder Disease: Yes - GENITOURINARY/GYNECOLOGICAL Hx Genitourinary Disorders: No - PSYCHIATRIC Hx Psychophysiologic Disorder: No - SURGICAL HISTORY Hx Cholecystectomy: Yes - ANESTHESIA Hx Anesthesia: Yes Hx Anesthesia Reactions: No Meds Allergies/Adverse Reactions: Allergies Allergy/AdvReac Type Severity Reaction Status Date / Time No Known Allergies Allergy Verified 07/06/16 18:11 - Medications Medications: Current Medications Piperacillin Sod/Tazobactam (Sod 3.375 gm/ Sodium Chloride) 100 mls @ 100 mls/ hr IVPB Q6 PEGGY Last Admin: 07/07/16 22:34 Dose: Not Given Sodium Chloride (Sodium Chloride 0.9%) 1,000 mls @ 100 mls/hr IV .Q10H PEGGY Stop: 07/08/16 17:44 Last Admin: 07/07/16 22:27 Dose: 100 mls/hr Morphine Sulfate (Morphine) 1 mg IVP Q4 PRN PRN Reason: Pain, Mild (1-3) Last Admin: 07/07/16 22:26 Dose: 1 mg Morphine Sulfate (Morphine) 2 mg IVP Q4 PRN PRN Reason: Pain, moderate (4-7) Morphine Sulfate (Morphine) 4 mg IVP Q4 PRN PRN Reason: Pain, severe (8-10) Ondansetron HCl (Zofran Inj) 4 mg IVP Q6 PRN PRN Reason: Nausea/Vomiting Physical Exam - Constitutional Appears: Non-toxic, No Acute Distress - Head Exam Head Exam: ATRAUMATIC, NORMOCEPHALIC - Eye Exam Eye Exam: EOMI - ENT Exam ENT Exam: Mucous Membranes Moist, Normal External Ear Exam - Neck Exam Neck exam: Positive for: Full Rom - Respiratory Exam Respiratory Exam: NORMAL BREATHING PATTERN. absent: Accessory Muscle Use, Respiratory Distress - GI/Abdominal Exam GI & Abdominal Exam: Soft, Tenderness (periumbilical). absent: Distended, Firm , Guarding, Rebound, Rigid Additional comments: umbilical incision is indurated, tender to palpation, old blood w. odor expressed on palpation, mild overlying erythema Results - Vital Signs Recent Vital Signs: Last Vital Signs Temp 99 F 07/07/16 22:34 Pulse 69 07/07/16 22:34 Resp 19 07/07/16 22:34 BP 115/77 07/07/16 22:34 Pulse Ox 98 07/07/16 22:22 - Labs Result Diagrams: 07/07/16 19:10 07/07/16 19:10 Labs: Laboratory Results - last 24 hr 07/07/16 21:45 Lactic Acid 1.0 - Imaging and Cardiology CT scan - abdomen Status: Image reviewed by me, Report reviewed by me Assessment & Plan - Assessment and Plan (Free Text) Assessment: 46F s/p lap geoffrey with port site hematoma/abscess -incision was opened w. q-tip at bedside, 10cc foul smelling blood was expressed from incision site, incision site was irrigated w. saline and packed w. sterile gauze -pain meds -abx -remove packing in AM -d/w attending Zemaitis PGY2
[2016-07-08] VITALS: RESP 20
[2016-07-08] MEDS: Sodium Chloride 0.9% 1,000 ML IV SCH ×2 (03:49→08:10)
[2016-07-08 07:02] LABS: BASO # 0.1 K/uL (0.0-0.2); BASO % 0.9 % (0.0-2.0); EOS # 0.4 K/uL (0.0-0.7); EOS % 5.2 % (0.0-4.0); HEMATOCRIT 32.1 % (34.0-47.0); LYMPH % 38.7 % (20.0-40.0); MEAN CORPUSCULAR HEMOGLOBIN 26.3 pg (27.0-31.0); MEAN CORPUSCULAR HGB CONC 33.7 g/dL (33.0-37.0); MEAN PLATELET VOLUME 9.1 fl (7.2-11.7); MONO # 0.4 K/uL (0.0-0.8); NEUT # 3.9 K/uL (1.8-7.0); NEUT % 50.2 % (50.0-75.0); NRBC % 0.2 % (0.0-0.0); RED CELL DISTRIBUTION WIDTH 14.8 % (11.5-14.5); WHITE BLOOD COUNT 7.8 K/uL (4.8-10.8)
[2016-07-08 07:19] LABS: BLOOD UREA NITROGEN 16 mg/dl (7-17); CARBON DIOXIDE 20 mmol/L (22-30); CHLORIDE 111 mmol/L (98-107); GFR AFRICAN-AMERICAN > 60; GLUCOSE,RANDOM 127 mg/dL (65-105); POTASSIUM 4.1 MMOL/L (3.6-5.0); SODIUM 141 mmol/l (132-148)
--- NOTE | 2016-07-08 07:33 | CP.PCM.PN ---
Subjective - Date & Time of Evaluation Date of Evaluation: 07/08/16 Time of Evaluation: 07:31 - Subjective Subjective: This is a general surgery progress note for Dr. Vergara: 46 y/o female resting comfortably, seen at bedside in NAD and AAOx3. patient had a recent laparoscopic cholecystectomy on 06/[address] Vergara, and noticed drainage and blood from the umbilical incision site. Patient has mild pain to the area today, but improving since yesterday. patient denies any acute events overnight. She denies n/f/v/c/d/sob. Objective - Vital Signs/Intake and Output Vital Signs (last 24 hours): Temp Pulse Resp BP Pulse Ox 98.6 F 81 20 110/75 99 07/07/16 22:46 07/07/16 22:46 07/07/16 22:46 07/07/16 22:46 07/07/16 22:46 Intake and Output: 07/08/16 07/08/16 06:59 18:59 Intake Total 1000 Balance 1000 - Medications Medications: Current Medications Piperacillin Sod/Tazobactam (Sod 3.375 gm/ Sodium Chloride) 100 mls @ 100 mls/ hr IVPB Q6 PEGGY Last Admin: 07/07/16 22:34 Dose: Not Given Sodium Chloride (Sodium Chloride 0.9%) 1,000 mls @ 100 mls/hr IV .Q10H PEGGY Stop: 07/08/16 17:44 Last Admin: 07/08/16 03:49 Dose: 100 mls/hr Morphine Sulfate (Morphine) 1 mg IVP Q4 PRN PRN Reason: Pain, Mild (1-3) Last Admin: 07/07/16 22:26 Dose: 1 mg Morphine Sulfate (Morphine) 2 mg IVP Q4 PRN PRN Reason: Pain, moderate (4-7) Morphine Sulfate (Morphine) 4 mg IVP Q4 PRN PRN Reason: Pain, severe (8-10) Ondansetron HCl (Zofran Inj) 4 mg IVP Q6 PRN PRN Reason: Nausea/Vomiting - Labs Labs: 07/08/16 06:35 - Constitutional Appears: Well, Non-toxic, No Acute Distress - GI/Abdominal Exam GI & Abdominal Exam: Soft, Tenderness. absent: Distended, Firm, Guarding Additional comments: umbilical incision is indurated, mildly tender to palpation, no odor, no active bleeding, mild localized erythema - Neurological Exam Neurological Exam: Alert, Awake, Oriented x3 - Psychiatric Exam Psychiatric exam: Normal Affect, Normal Mood Assessment and Plan - Assessment and Plan (Free Text) Assessment: 46 F s/p lap geoffrey with port site hematoma/abscess -removed packing this am -CT of abdomen shows 1.8x2x2.5cm fluid collection in abdominal wall -cont. pain meds -cont. abx -patient stable for discharge -continue daily dry gauze dressings -follow up in clinic in 1 week -d/w attending
[2016-07-08 08:38] VITALS: BP 98/66; PULSE 66; TEMP 98.1; O2SAT 97
[2016-07-08] MEDS: Piperacillin/Tazobact 3.375 GM in Sodium Chloride 0.9% 100 ML IVPB SCH ×2 (08:45→09:21)
--- NOTE | 2016-07-08 15:34 | CP.PCM.DIS ---
Provider - Provider Date of Admission: 07/07/16 21:22 Attending physician: Regis Scanlon MD Primary care physician: None Consults: Surgery consult Time Spent in preparation of Discharge (in minutes): 15 Hospital Course - Lab Results Lab Results: Most Recent Lab Values WBC 7.8 K/uL (4.8-10.8) 07/08/16 06:35 RBC 4.11 Mil/uL (3.80-5.20) 07/08/16 06:35 Hgb 10.8 g/dL (12.0-16.0) L 07/08/16 06:35 Hct 32.1 % (34.0-47.0) L 07/08/16 06:35 MCV 78.0 fl (81.0-99.0) L 07/08/16 06:35 MCH 26.3 pg (27.0-31.0) L 07/08/16 06:35 MCHC 33.7 g/dL (33.0-37.0) 07/08/16 06:35 RDW 14.8 % (11.5-14.5) H 07/08/16 06:35 Plt Count 287 K/uL (130-400) 07/08/16 06:35 MPV 9.1 fl (7.2-11.7) 07/08/16 06:35 Neut % (Auto) 50.2 % (50.0-75.0) 07/08/16 06:35 Lymph % (Auto) 38.7 % (20.0-40.0) 07/08/16 06:35 [place] % (Auto) 5.0 % (0.0-10.0) 07/08/16 06:35 Eos % (Auto) 5.2 % (0.0-4.0) H 07/08/16 06:35 Baso % (Auto) 0.9 % (0.0-2.0) 07/08/16 06:35 Neut # 3.9 K/uL (1.8-7.0) 07/08/16 06:35 Lymph # 3.0 K/uL (1.0-4.3) 07/08/16 06:35 [place] # 0.4 K/uL (0.0-0.8) 07/08/16 06:35 Eos # 0.4 K/uL (0.0-0.7) 07/08/16 06:35 Baso # 0.1 K/uL (0.0-0.2) 07/08/16 06:35 Sodium 141 mmol/l (132-148) 07/08/16 06:35 Potassium 4.1 MMOL/L (3.6-5.0) 07/08/16 06:35 Chloride 111 mmol/L (98-107) H 07/08/16 06:35 Carbon Dioxide 20 mmol/L (22-30) L 07/08/16 06:35 Anion Gap 14 (10-20) 07/08/16 06:35 BUN 16 mg/dl (7-17) 07/08/16 06:35 Creatinine 0.8 mg/dL (0.7-1.2) 07/08/16 06:35 Est GFR ( Amer) > 60 07/08/16 06:35 Est GFR (Non-Af Amer) > 60 07/08/16 06:35 Random Glucose 127 mg/dL (65-105) H 07/08/16 06:35 Lactic Acid 1.0 MMOL/L (0.7-2.1) 07/07/16 21:45 Calcium 9.0 mg/dL (8.4-10.2) 07/08/16 06:35 Total Bilirubin 0.4 mg/dl (0.2-1.3) 07/07/16 19:10 AST 32 U/L (14-36) 07/07/16 19:10 ALT 33 U/L (9-52) 07/07/16 19:10 Alkaline Phosphatase 97 U/L (38-126) 07/07/16 19:10 Total Protein 8.3 G/DL (6.3-8.2) H 07/07/16 19:10 Albumin 4.1 g/dL (3.5-5.0) 07/07/16 19:10 Globulin 4.2 gm/dL (2.2-3.9) H 07/07/16 19:10 Albumin/Globulin Ratio 1.0 (1.0-2.1) 07/07/16 19:10 Urine Color Yellow (YELLOW) 07/07/16 19:36 Urine Clarity Slighty-cloudy (Clear) 07/07/16 19:36 Urine pH 6.0 (5.0-8.0) 07/07/16 19:36 Ur Specific [place] 1.018 (1.003-1.030) 07/07/16 19:36 Urine Protein Negative mg/dL (NEGATIVE) 07/07/16 19:36 Urine Glucose (UA) Neg mg/dL (Normal) 07/07/16 19:36 Urine Ketones Negative mg/dL (NEGATIVE) 07/07/16 19:36 Urine Blood Small (NEGATIVE) 07/07/16 19:36 Urine Nitrate Negative (NEGATIVE) 07/07/16 19:36 Urine Bilirubin Negative (NEGATIVE) 07/07/16 19:36 Urine Urobilinogen 0.2-1.0 mg/dL (0.2-1.0) 07/07/16 19:36 Ur Leukocyte Esterase Mod Celest[place]/uL (Negative) 07/07/16 19:36 Urine RBC (Auto) 7 /hpf (0-3) H 07/07/16 19:36 Urine Microscopic WBC 17 /hpf (0-5) H 07/07/16 19:36 Ur Squamous Epith Cells 32 /hpf (0-5) H 07/07/16 19:36 Urine Bacteria Rare (<OCC) 07/07/16 19:36 - Hospital Course Hospital Course: This is a 46 y/o female with no chronic medical conditions who came in with abdominal wall abscess after recent cholecystectomy. Per patient, she had the procedure mid last week, and went home in stable condition. About 2 days ago, she developed pain and bloody drainage at umbilicus and malaise. Today the pain was more pronounced and there was significant amount of drainage so she came in. Darshan f/c. Darshan d. Has n but no v. Denies CP/SOB. CT does accumulation Surgery was consulted and patient taken for I& D and packing. I&D was significant only for hematoma/ abscess Packing removed by surgery and patient cleared for discharge only with dry dressing changes daily and follow up with Dr. Vergara in 1 week Discharge Exam - Head Exam Head Exam: ATRAUMATIC, NORMOCEPHALIC - Eye Exam Eye Exam: EOMI, Normal appearance, PERRL Pupil Exam: NORMAL ACCOMODATION - ENT Exam ENT Exam: Mucous Membranes Moist, Normal Exam - Neck Exam Neck exam: Full Rom, Normal Inspection - Respiratory Exam Respiratory Exam: Clear to PA & Lateral, NORMAL BREATHING PATTERN. absent: Rales, Rhonchi, Wheezes - Cardiovascular Exam Cardiovascular Exam: REGULAR RHYTHM, RRR, +S1, +S2. absent: JVD - GI/Abdominal Exam GI & Abdominal Exam: Normal Bowel Sounds, Soft. absent: Distended, Guarding, Rebound, Tenderness Additional comments: umbilical dressing in place , clean - Rectal Exam Rectal Exam: Deferred - Extremities Exam Extremities exam: normal capillary refill, normal inspection, pedal pulses present - Back Exam Back exam: NORMAL INSPECTION - Neurological Exam Neurological exam: Alert, CN II-XII Intact, Oriented x3, Reflexes Normal - Psychiatric Exam Psychiatric exam: Normal Affect, Normal Mood - Skin Skin Exam: Dry, Intact, Normal Color, Warm Discharge Plan - Follow Up Plan Condition: STABLE Disposition: HOME/ ROUTINE Patient education suggested?: Yes Instructions: Laparoscopic Cholecystectomy (DC), Abscess (GEN) Additional Instructions: Medical clearance given for discharge by Hospitalist. Surgical clearance given for discharge. Patient instructed to follow up with Dr. Vergara in 10 days. Referrals: Miladys Vergara MD [Staff Provider] -
== END 2016-07-08 17:08 | disposition home or self-care (01) | DRG 418 ==
LOC: H.ER 18:33 → H.ERHOLD 21:22 → H.MEDSURG1 22:53
PROVIDERS: ADMIT Internal Medicine; ATTEND Internal Medicine
PROC: 0W9F3ZZ Drainage of Abdominal Wall, Percutaneous Approach (ICD-10-PCS; principal; 2016-07-07)
DX: T81.4XXA Infection following a procedure, initial encounter (principal); L02.211 Cutaneous abscess of abdominal wall; N18.9 Chronic kidney disease, unspecified; Y83.6 Removal of other organ (partial) (total) as the cause of abnormal reaction of the patient, or of later complication, without mention of misadventure at the time of the procedure

== ENCOUNTER 2016-07-12 13:57 | Emergency (ER) | payer OTHER ==
[2016-07-12 13:57] VITALS: BMI 32.5
[2016-07-12 14:26] VITALS: BP 104/60; PULSE 100; RESP 20; TEMP 100; O2SAT 99
[2016-07-12] MEDS ORDERED: Sodium Chloride 0.9% 1,000 ML IV STA (14:30)
[2016-07-12 15:37] LABS: BASO # 0.1 K/uL (0.0-0.2); BASO % 0.8 % (0.0-2.0); EOS # 0.4 K/uL (0.0-0.7); EOS % 4.3 % (0.0-4.0); HEMATOCRIT 36.9 % (34.0-47.0); LYMPH % 34.2 % (20.0-40.0); MEAN CELL VOLUME 78.6 fl (81.0-99.0); MEAN CORPUSCULAR HEMOGLOBIN 26.3 pg (27.0-31.0); MEAN CORPUSCULAR HGB CONC 33.5 g/dL (33.0-37.0); MEAN PLATELET VOLUME 9.2 fl (7.2-11.7); MONO # 0.5 K/uL (0.0-0.8); MONO % 5.6 % (0.0-10.0); NEUT # 4.8 K/uL (1.8-7.0); NEUT % 55.1 % (50.0-75.0); NRBC % 0.1 % (0.0-0.0); RED CELL DISTRIBUTION WIDTH 14.9 % (11.5-14.5); WHITE BLOOD COUNT 8.8 K/uL (4.8-10.8)
[2016-07-12 15:42] LABS: RBC URINE 3 /hpf (0-3); URINE BILIRUBIN NEGATIVE (NEGATIVE); URINE BLOOD SMALL (NEGATIVE); URINE COLOR YELLOW (YELLOW); URINE GLUCOSE (UA) NEG (Normal); URINE KETONE NEGATIVE (NEGATIVE); URINE LEUKOCYTE ESTERASE NEG Leu/uL (Negative); URINE PROTEIN NEGATIVE (NEGATIVE); URINE UROBILINOGEN 0.2-1.0 mg/dL (0.2-1.0); WBC URINE 3 /hpf (0-5)
[2016-07-12 15:49] LABS: VENOUS BLOOD GAS BASE EXCESS 4.1 mmol/L (0.0-2.0); VENOUS BLOOD GAS PCO2 41 mmHg (40-60); VENOUS BLOOD PH 7.45 (7.32-7.43)
--- NOTE | 2016-07-12 15:52 | ED PDOC ---
HPI: Abdomen Time Seen by Provider: 07/12/16 14:29 Chief Complaint (Nursing): Abdominal Pain Chief Complaint (Provider): Abdominal Pain History Per: Patient History/Exam Limitations: no limitations Onset/Duration Of Symptoms: Days Current Symptoms Are (Timing): Still Present Additional Complaint(s): 46 y/o female presents to the emergency department with a complaint of an abdominal wall abscess status post a laparoscopic cholecystectomy performed on June 23, 2016. Associated with pain returned to the area, tactile fever, and drainage from the wound located on the belly button. Denies vomiting and diarrhea. Of note, patient was found with polymicrobial abscess with staphylococcus and klebsiella on a microbiology culture on 07-07-2016. PMD: None Past Medical History Reviewed: Historical Data, Nursing Documentation, Vital Signs Vital Signs: Last Vital Signs Temp 100 F H 07/12/16 14:23 Pulse 100 H 07/12/16 14:23 Resp 20 07/12/16 14:23 BP 104/60 07/12/16 14:23 Pulse Ox 99 07/12/16 20:43 - Medical History PMH: Gall Bladder Disease, Kidney Stones (questionable hx), Chronic Kidney Disease - Surgical History Surgical History: Cholecystectomy, - Family History Family History: States: Unknown Family Hx - Social History Current smoker - smoking cessation education provided: No Alcohol: None Drugs: Denies - Home Medications Home Medications: Ambulatory Orders Medication Instructions Recorded oxyCODONE/Acetaminophen [Percocet 1 ea PO Q6 PRN #10 tab 06/25/16 5/325 mg Tab] Ibuprofen [Motrin Tab] 600 mg PO Q8 PRN #60 tab 07/12/16 Sulfamethoxazole/Trimethoprim 1 tab PO BID #14 tab 07/12/16 [Bactrim DS 800 mg-160 mg] Dicyclomine [Bentyl] 20 mg PO Q12 PRN #20 tab 07/23/16 - Allergies Allergies/Adverse Reactions: Allergies Allergy/AdvReac Type Severity Reaction Status Date / Time No Known Allergies Allergy Verified 07/23/16 19:45 Review of Systems ROS Statement: Except As Marked, All Systems Reviewed And Found Negative Constitutional: Positive for: Fever Gastrointestinal: Positive for: Abdominal Pain (Wall abscess), Other (Drainage from wound located on belly button). Negative for: Vomiting, Diarrhea Physical Exam - Reviewed Nursing Documentation Reviewed: Yes Vital Signs Reviewed: Yes - Physical Exam Appears: Positive for: Non-toxic, No Acute Distress Head Exam: Positive for: ATRAUMATIC, NORMOCEPHALIC Skin: Positive for: Normal Color, Warm, Dry ENT: Positive for: Normal ENT Inspection. Negative for: Pharyngeal Erythema Neck: Positive for: Normal, Supple Cardiovascular/Chest: Positive for: Regular Rate, Rhythm. Negative for: Murmur Respiratory: Positive for: Normal Breath Sounds. Negative for: Accessory Muscle Use, Respiratory Distress Gastrointestinal/Abdominal: Positive for: Soft, Tenderness (Mild tenderness to the mid abdomen with foul smell discharge at umbilicus with dry blood; area is bandaged). Negative for: Other (no surrounding induration or erythema ) Extremity: Positive for: Normal ROM. Negative for: Pedal Edema, Swelling Neurologic/Psych: Positive for: Alert, Oriented - Laboratory Results Result Diagrams: 07/12/16 15:29 07/12/16 15:29 - ECG O2 Sat by Pulse Oximetry: 99 (RA) Pulse Ox Interpretation: Normal Medical Decision Making Medical Decision Making: Time: 14:29 Initial impression: Surgical site infection/ sepsis rule out reaccumulation of abscess Initial plan: --VBG Shock Panel --Abd & Pelvis IV Contrast (CT) --COMP Metabolic Panel --Lipase Stat --Partial Thromboplastin Time (COAG) --Prothrombin Time (COAG) --Sodium Chloride 1,000 mls IV 1,000 mls/hr --Revaluation Time: 15:00 --Case discussed with surgical supervisor and will evaluate patient. --Sign out to Dr. David Sosaibe Attestation: Documented by Portia Rodriguez, acting as a scribe for Memo Cavazos MD. Provider Scribe Attestation: All medical record entries made by the Scribe were at my direction and personally dictated by me. I have reviewed the chart and agree that the record accurately reflects my personal performance of the history, physical exam, medical decision making, and the department course for this patient. I have also personally directed, reviewed, and agree with the discharge instructions and disposition. Disposition - Clinical Impression Clinical Impression: Wound infection after surgery - Patient ED Disposition Is Patient to be Admitted: Transfer of Care - Disposition Referrals: Miladys Vergara MD [Staff Provider] - 07/13/16 ([facility]NA A [facility]TON[facility]) Disposition: Transfer of Care Disposition Time: 17:00 Condition: IMPROVED Prescriptions: Ibuprofen [Motrin Tab] 600 mg PO Q8 PRN #60 tab PRN Reason: Pain, Moderate (4-7) Sulfamethoxazole/Trimethoprim [Bactrim DS 800 mg-160 mg] 1 tab PO BID #14 tab Instructions: Wound Infection (ED) Print Language: UZBEK Patient Signed Over To: Vesna Hernandez
[2016-07-12 15:56] LABS: ALB/GLOB RATIO 0.9 (1.0-2.1); ALKALINE PHOSPHATASE 110 U/L (38-126); ALT/SGPT 40 U/L (9-52); AST/SGOT 39 U/L (14-36); BILIRUBIN,TOTAL 0.6 mg/dl (0.2-1.3); BLOOD UREA NITROGEN 13 mg/dl (7-17); CALCIUM 10.1 mg/dL (8.4-10.2); CARBON DIOXIDE 23 mmol/L (22-30); CHLORIDE 105 mmol/L (98-107); GFR AFRICAN-AMERICAN > 60; GLUCOSE,RANDOM 111 mg/dL (65-105); LIPASE 124 U/L (23-300); SODIUM 142 mmol/l (132-148); TOTAL PROTEIN 9.2 G/DL (6.3-8.2)
[2016-07-12 15:58] LABS: POTASSIUM 4.4 MMOL/L (3.6-5.0)
[2016-07-12 16:00] LABS: PARTIAL THROMBOPLASTIN TIME 22.6 SECONDS (23.3-32.5)
--- NOTE | 2016-07-12 16:20 | ED PDOC ---
- Laboratory Results Result Diagrams: 07/12/16 15:29 07/12/16 15:29 - ECG O2 Sat by Pulse Oximetry: 99 (RA) Pulse Ox Interpretation: Normal Medical Decision Making Medical Decision Making: Time: 15:00 --Pending surgical instruments inspector to evaluate patient with consultation. --Pending Abd & Pelvis with IV contrast (CT) --Final disposition Time: 18:13 Impression: Interval decrease in inflammation at the umbilicus with decrease in size of abscesses; fatty liver, no acute solid visceral abnormality; cholecystectomy; possible mild ileus, no obstruction; no CT findings of appendicitis or diverticulitis Time: 20:00 --Spoke to Dr. Vergara (performed surgery) who said to discharge patient with antibiotics. Upon provider reevaluation patient is feeling better, is medically stable, and requires no further treatment in the ED at this time. Patient will be discharged home with Rx for Motrin 600 mg and Bactrim DS 800 mg- 160 mg . Counseling was provided and all questions were answered regarding diagnosis and need for follow up with Dr. Miladys Vergara MD . There is agreement to discharge plan. Return if symptoms persist or worsen. Clinical Impression: Wound infection after surgery Scribe Attestation: Documented by Portia Rodriguez, acting as a scribe for Vesna Hernandez MD. Provider Scribe Attestation: All medical record entries made by the Scribe were at my direction and personally dictated by me. I have reviewed the chart and agree that the record accurately reflects my personal performance of the history, physical exam, medical decision making, and the department course for this patient. I have also personally directed, reviewed, and agree with the discharge instructions and disposition. Disposition Counseled Patient/Family Regarding: Studies Performed, Diagnosis, Need For Followup, Rx Given - Clinical Impression Clinical Impression: Wound infection after surgery - POA Present On Arrival: None - Disposition Referrals: Miladys Vergara MD [Staff Provider] - 07/13/16 (LLAME A LA OFICINA POR LA [facility]NANA A H[facility]ER [facility]SI[facility] ANTON[facility]) Disposition: Routine/Home Disposition Time: 20:00 Condition: IMPROVED Prescriptions: Ibuprofen [Motrin Tab] 600 mg PO Q8 PRN #60 tab PRN Reason: Pain, Moderate (4-7) Sulfamethoxazole/Trimethoprim [Bactrim DS 800 mg-160 mg] 1 tab PO BID #14 tab Instructions: Wound Infection (ED) Print Language: GERMAN
[2016-07-12] MEDS ORDERED: Iohexol 300 100 ML IJ ONE (17:30)
[2016-07-12] MEDS ORDERED: Sodium Chloride 0.9% 50 ML IV ONE (17:30)
--- NOTE | 2016-07-12 18:14 | CT ---
EXAM: CT Abdomen and Pelvis With Intravenous Contrast CLINICAL HISTORY: 46 years old, female; Pain; Abdominal pain; Epigastric; Additional info: Post op fever, recent abd wall abscess TECHNIQUE: Axial computed tomography images of the abdomen and pelvis with intravenous contrast. This CT exam was performed using one or more of the following dose reduction techniques: automated exposure control, adjustment of the mA and/or kV according to patient size, and/or use of iterative reconstruction technique. Coronal and sagittal reformatted images were created and reviewed. CONTRAST: 100 mL of [id number] administered intravenously. EXAM DATE/TIME: 07/12/2016 2:54 PM COMPARISON: CT - ABD PELVIS IV CONTRAST ONLY 07/07/2016 8:14:14 PM FINDINGS: Lower thorax: Heart size is normal. There is subsegmental atelectasis/scarring at the right base. There is dependent atelectasis and scarring at both lung bases. There is trace left effusion. ABDOMEN: Liver: There is fatty infiltration of the liver. Gallbladder and bile ducts: Gallbladder is surgically absent. Common bile duct is unremarkable. Pancreas: unremarkable Spleen: unremarkable Adrenals: unremarkable Kidneys and ureters: unremarkable Stomach and bowel: Stomach is empty. Rotation is normal. There are mildly distended small bowel loops in left abdomen air fluid levels. There is no obstruction. Terminal ileum is unremarkable. Appendix is unremarkable. Streaky motion limits evaluation of the colon. There is scattered diverticulosis Appendix: See stomach and bowel PELVIS: Bladder: Bladder is partially distended. Reproductive: Uterus and adnexal structures are unremarkable. ABDOMEN and PELVIS: Intraperitoneal space: There is no significant fluid.There is no free air. Bones/joints: There are degenerative changes in the osseus structures. Soft tissues: There is inflammation and edema in the abdominal wall at the umbilicus decreased since the prior study. There is a decrease in size small abscess inferior to the umbilicus. This now measures approximately 10.6 x 12.1 mm, image 67 series 2. There is a small cyst paralleling the skin surface inferior umbilicus also decreased since the prior study now 2.9 x 1.3 cm, image 91 series 602. Vasculature: Vascular structures are unremarkable. Lymph nodes: There is no pathologic adenopathy. IMPRESSION: Interval decrease in inflammation at the umbilicus with decrease in size of abscesses; fatty liver, no acute solid visceral abnormality; cholecystectomy; possible mild ileus, no obstruction; no CT findings of appendicitis or diverticulitis
[2016-07-12] MEDS ORDERED: Piperacillin/Tazobact 3.375 GM in Sodium Chloride 0.9% 100 ML IV STA (19:17)
[2016-07-12] MEDS ORDERED: Piperacillin/Tazobact 3.375 GM in Sodium Chloride 0.9% 100 ML IVPB STA (19:20)
== END 2016-07-12 20:46 | disposition home or self-care (01) ==
LOC: H.ER 13:57
DX: T81.4XXA Infection following a procedure, initial encounter (principal); R50.82 Postprocedural fever; Z90.49 Acquired absence of other specified parts of digestive tract; K76.0 Fatty (change of) liver, not elsewhere classified; R10.13 Epigastric pain

== ENCOUNTER 2016-07-23 15:40 | Emergency (ER) | payer OTHER ==
[2016-07-23 19:45] VITALS: BP 129/76; PULSE 112; RESP 16; TEMP 101.4; O2SAT 99
[2016-07-23] MEDS ORDERED: Iohexol 240 (50 ml) ONE (20:01)
[2016-07-23 20:49] LABS: BASO # 0.1 K/uL (0.0-0.2); BASO % 0.8 % (0.0-2.0); EOS # 0.2 K/uL (0.0-0.7); EOS % 2.9 % (0.0-4.0); HEMATOCRIT 33.7 % (34.0-47.0); LYMPH % 40.2 % (20.0-40.0); MEAN CELL VOLUME 79.2 fl (81.0-99.0); MEAN CORPUSCULAR HEMOGLOBIN 25.7 pg (27.0-31.0); MEAN CORPUSCULAR HGB CONC 32.5 g/dL (33.0-37.0); MEAN PLATELET VOLUME 9.4 fl (7.2-11.7); MONO # 0.4 K/uL (0.0-0.8); MONO % 5.8 % (0.0-10.0); NEUT # 3.7 K/uL (1.8-7.0); NEUT % 50.3 % (50.0-75.0); RED CELL DISTRIBUTION WIDTH 15.1 % (11.5-14.5); WHITE BLOOD COUNT 7.4 K/uL (4.8-10.8)
[2016-07-23 21:03] LABS: ALB/GLOB RATIO 1.1 (1.0-2.1); ALKALINE PHOSPHATASE 98 U/L (38-126); ALT/SGPT 38 U/L (9-52); AST/SGOT 28 U/L (14-36); BILIRUBIN,TOTAL 0.4 mg/dl (0.2-1.3); BLOOD UREA NITROGEN 11 mg/dl (7-17); CALCIUM 9.5 mg/dL (8.4-10.2); CARBON DIOXIDE 22 mmol/L (22-30); CHLORIDE 105 mmol/L (98-107); GFR AFRICAN-AMERICAN > 60; GLUCOSE,RANDOM 100 mg/dL (65-105); LIPASE 115 U/L (23-300); POTASSIUM 4.1 MMOL/L (3.6-5.0); SODIUM 141 mmol/l (132-148); TOTAL PROTEIN 8.3 G/DL (6.3-8.2)
[2016-07-23 21:16] LABS: PARTIAL THROMBOPLASTIN TIME 23.6 SECONDS (23.3-32.5)
--- NOTE | 2016-07-23 21:32 | ED PDOC ---
HPI: Abdomen Time Seen by Provider: 07/23/16 19:35 Chief Complaint (Nursing): Abdominal Pain Chief Complaint (Provider): Abdominal Pain History Per: Patient History/Exam Limitations: no limitations Onset/Duration Of Symptoms: Days (1x) Severity: Moderate Associated Symptoms: Fever, Diarrhea. denies: Nausea, Vomiting Additional Complaint(s): 46 year old female patient status post cholecystectomy (07/04/2016) presents to the ED with complaints of a fever that started 1x day ago. She reports that she had a post operative abscess which required readmission and she has been following up with Dr. Vergara. She finished her antibiotics 2x days ago (Bactrim) . She reports that today she had a fever of 101.9, chills, abdominal pain in the region of the surgery, and diarrheal episodes (that started 2x days ago: non bilious and non bloody). She denies having nausea or vomiting. PMD: Dr. Vergara. Past Medical History Reviewed: Historical Data, Nursing Documentation, Vital Signs Vital Signs: Last Vital Signs Temp 101.4 F H 07/23/16 19:42 Pulse 112 H 07/23/16 19:42 Resp 16 07/23/16 19:42 BP 129/76 07/23/16 19:42 Pulse Ox 99 07/24/16 08:12 - Medical History PMH: Gall Bladder Disease, Kidney Stones (questionable hx), Chronic Kidney Disease - Surgical History Surgical History: Cholecystectomy, - Family History Family History: States: Unknown Family Hx - Social History Alcohol: None Drugs: Denies - Home Medications Home Medications: Ambulatory Orders Medication Instructions Recorded oxyCODONE/Acetaminophen [Percocet 1 ea PO Q6 PRN #10 tab 06/25/16 5/325 mg Tab] Ibuprofen [Motrin Tab] 600 mg PO Q8 PRN #60 tab 07/12/16 Sulfamethoxazole/Trimethoprim 1 tab PO BID #14 tab 07/12/16 [Bactrim DS 800 mg-160 mg] Dicyclomine [Bentyl] 20 mg PO Q12 PRN #20 tab 07/23/16 - Allergies Allergies/Adverse Reactions: Allergies Allergy/AdvReac Type Severity Reaction Status Date / Time No Known Allergies Allergy Verified 07/23/16 19:45 Review of Systems ROS Statement: Except As Marked, All Systems Reviewed And Found Negative Constitutional: Positive for: Fever, Chills Gastrointestinal: Positive for: Abdominal Pain, Diarrhea. Negative for: Nausea , Vomiting Physical Exam - Reviewed Nursing Documentation Reviewed: Yes Vital Signs Reviewed: Yes - Physical Exam Appears: Positive for: Non-toxic (febrile), No Acute Distress Head Exam: Positive for: ATRAUMATIC, NORMOCEPHALIC Skin: Positive for: Normal Color, Warm, Dry Cardiovascular/Chest: Positive for: Tachycardia (regular rhythm) Respiratory: Positive for: Normal Breath Sounds. Negative for: Respiratory Distress Gastrointestinal/Abdominal: Positive for: Tenderness (RUQ tenderness), Other ( surgical sites are clean, dry, and closed.). Negative for: Guarding, Rebound Neurologic/Psych: Positive for: Alert, Oriented (3x) - Laboratory Results Result Diagrams: 07/23/16 20:35 07/23/16 20:35 - ECG O2 Sat by Pulse Oximetry: 99 (RA) Pulse Ox Interpretation: Normal Medical Decision Making Medical Decision Makin:35 Initial impression: 46 year old female with abdominal pain insetting of recent post operative infection and completion of antibiotics. Initial plan: * CT abd and pelvis w/ PO and IV contrast * EKG * CMP * lactic acid, plasma * lipase * udip * CBC * PT/PTT * tylenol 650 mg PO * blood culture * reevaluation 0812: Patient is declining analgesics Labs show no clinical significant abnormalities Discussed with Dr. Vergara patients surgeon. Patient is stable for discharge based on CT finding and normal labs. Patient was prescribed Bentyl Scribe Attestation: Documented by Kayla Shah, acting as a scribe for Bishop Lundberg MD. Provider Scribe Attestation: All medical record entries made by the Scribe were at my direction and personally dictated by me. I have reviewed the chart and agree that the record accurately reflects my personal performance of the history, physical exam, medical decision making, and the department course for this patient. I have also personally directed, reviewed, and agree with the discharge instructions and disposition. Disposition - Clinical Impression Clinical Impression: Gastroenteritis - Disposition Referrals: [facility] [Outside] Miladys Vergara MD [Staff Provider] - Disposition: Routine/Home Disposition Time: 23:00 Condition: STABLE Prescriptions: Dicyclomine [Bentyl] 20 mg PO Q12 PRN #20 tab PRN Reason: abdominal pain/diarrhea Instructions: Gastroenteritis (ED) Print Language: SERBIAN
[2016-07-23] MEDS ORDERED: Iohexol 300 100 ML IJ ONE (22:49)
[2016-07-23] MEDS ORDERED: Sodium Chloride 0.9% 50 ML IV ONE (22:49)
[2016-07-23] MEDS ORDERED: Piperacillin/Tazobact 3.375 GM in Sodium Chloride 0.9% 100 ML IV STA (23:35)
--- NOTE | 2016-07-24 13:24 | CT ---
PROCEDURE: CT Abdomen and Pelvis with oral and IV contrast. HISTORY: abd pain COMPARISON: CT abdomen and pelvis with contrast performed 07/12/16 TECHNIQUE: Contiguous axial images of the abdomen and pelvis. Oral and IV contrast was administered. Coronal and Sagittal reformats generated and reviewed. Contrast dose: 99 mL Omnipaque 300 Radiation dose: Total exam DLP = 1122.30 MGy-cm. This CT exam was performed using one or more of the following dose reduction techniques: Automated exposure control, adjustment of the mA and/or kV according to patient size, and/or use of iterative reconstruction technique. FINDINGS: LOWER THORAX: No visible consolidation, pleural effusion, or pneumothorax. LIVER: Hypoattenuation of the liver compatible with hepatic steatosis. GALLBLADDER AND BILE DUCTS: Cholecystectomy. PANCREAS: Unremarkable. SPLEEN: Unremarkable. ADRENALS: Unremarkable. KIDNEYS AND URETERS: The kidneys enhance symmetrically. No hydronephrosis or obstructing renal calculus. BLADDER: The urinary bladder appears unremarkable. REPRODUCTIVE: Uterus is present. APPENDIX: The appendix appears within normal limits of caliber. No secondary signs of acute appendicitis. BOWEL: The stomach is nondistended. The bowel loops appear within normal limits of caliber without evidence of intestinal obstruction. PERITONEUM: No significant free fluid. No definite free air. LYMPH NODES: No bulky lymphadenopathy identified. VASCULATURE: No aortic aneurysm. BONES: Mild degenerative changes. OTHER FINDINGS: 1.5 cm peripherally hyperdense likely enhancing fluid collection at the skin surface near the umbilicus worrisome for small abscess. IMPRESSION: 1.5 cm peripherally hyperdense likely enhancing fluid collection at the skin surface near the umbilicus consistent with abscess. Correlate clinically. Hepatic steatosis. Cholecystectomy. Additional findings as above. Preliminary impression was provided by virtual radiologic.
--- NOTE | 2016-07-24 22:51 | CARD ---
APPROVED REPORT EKG Measurement Heart [id number] HI [id number] <Conclusion> Normal sinus rhythm Normal ECG
== END 2016-07-24 00:45 | disposition home or self-care (01) ==
LOC: H.ER 15:40
DX: K52.9 Noninfective gastroenteritis and colitis, unspecified (principal); T81.4XXA Infection following a procedure, initial encounter; K76.0 Fatty (change of) liver, not elsewhere classified; Z90.49 Acquired absence of other specified parts of digestive tract; R50.9 Fever, unspecified

== ENCOUNTER 2016-10-22 16:50 | Emergency (ER) | payer OTHER, SELFPAY ==
[2016-10-22 16:51] VITALS: BMI 32.5
[2016-10-22 17:04] VITALS: BP 129/59; PULSE 80; RESP 14; TEMP 98.2; O2SAT 99
[2016-10-22] MEDS ORDERED: Iohexol 240 (50 ml) PO STA (17:24)
[2016-10-22] MEDS ORDERED: Sodium Chloride 0.9% 1,000 ML IV STA (17:26)
--- NOTE | 2016-10-22 17:28 | ED PDOC ---
HPI: Abdomen Time Seen by Provider: 10/22/16 17:15 Chief Complaint (Nursing): Fever Chief Complaint (Provider): abdominal pain/fever History Per: Patient (46 y/o female s/p cholecystectomy 2 months ago here for evaluation of RUQ/RLQ abdominal pain x 2 days associated with low grade fevers. Has h/o surgical wall abscess in past. Notes mild burning with urination. ) Past Medical History Reviewed: Historical Data, Nursing Documentation, Vital Signs Vital Signs: Last Vital Signs Temp 98.2 F 10/22/16 17:01 Pulse 80 10/22/16 17:01 Resp 14 10/22/16 17:01 BP 129/59 L 10/22/16 17:01 Pulse Ox 99 10/22/16 17:31 - Medical History PMH: Gall Bladder Disease, Kidney Stones (questionable hx), Chronic Kidney Disease - Surgical History Surgical History: Cholecystectomy, - Family History Family History: States: Unknown Family Hx - Home Medications Home Medications: Ambulatory Orders Medication Instructions Recorded oxyCODONE/Acetaminophen [Percocet 1 ea PO Q6 PRN #10 tab 06/25/16 5/325 mg Tab] Ibuprofen [Motrin Tab] 600 mg PO Q8 PRN #60 tab 07/12/16 Sulfamethoxazole/Trimethoprim 1 tab PO BID #14 tab 07/12/16 [Bactrim DS 800 mg-160 mg] Dicyclomine [Bentyl] 20 mg PO Q12 PRN #20 tab 07/23/16 - Allergies Allergies/Adverse Reactions: Allergies Allergy/AdvReac Type Severity Reaction Status Date / Time No Known Allergies Allergy Verified 07/23/16 19:45 Review of Systems ROS Statement: Except As Marked, All Systems Reviewed And Found Negative Physical Exam - Reviewed Nursing Documentation Reviewed: Yes Vital Signs Reviewed: Yes - Physical Exam Appears: Positive for: Well, Non-toxic, No Acute Distress Head Exam: Positive for: ATRAUMATIC, NORMAL INSPECTION, NORMOCEPHALIC Skin: Positive for: Normal Color, Warm, DRY Eye Exam: Positive for: EOMI, Normal appearance, PERRL ENT: Positive for: Normal ENT Inspection Neck: Positive for: Normal, Painless ROM Cardiovascular/Chest: Positive for: Regular Rate, Rhythm Respiratory: Positive for: CNT, Normal Breath Sounds Gastrointestinal/Abdominal: Positive for: Normal Exam, Bowel Sounds, Soft Back: Positive for: Normal Inspection Extremity: Positive for: Normal ROM Neurologic/Psych: Positive for: Alert, Oriented - Laboratory Results Result Diagrams: 10/22/16 18:10 10/22/16 18:10 - ECG O2 Sat by Pulse Oximetry: 99 ED OBSERVATION Date of observation admission: 10/22/16 Time of observation admission: 17:29 - Observation admission statement Patient is being placed in observation because:: Abdominal pain Possible appendicitis Evaluation of and diagnosis of cause of abdominal pain - Goals of Observation Goals of observation are:: Evaluation of abdominal pain Improvement of abdominal pain - Progress Note Progress Note: 10/22/16 21:02 Labs wnl prepped for CT abdomen/pelvis Disposition - Clinical Impression Clinical Impression: Abdominal pain in female - Patient ED Disposition Is Patient to be Admitted: Transfer of Care - Disposition Disposition: Transfer of Care Disposition Time: 21:03 Condition: FAIR Forms: [facility] (Yi) Patient Signed Over To: Rachel Brambila Handoff Comments: ct abd/pelvis
[2016-10-22] MEDS ORDERED: Iohexol 240 (50 ml) ONE (18:00)
[2016-10-22 18:23] LABS: BASO # 0.1 K/uL (0.0-0.2); BASO % 0.7 % (0.0-2.0); EOS # 0.2 K/uL (0.0-0.7); EOS % 2.3 % (0.0-4.0); HEMOGLOBIN 10.8 g/dL (12.0-16.0); LYMPH # 2.8 K/uL (1.0-4.3); LYMPH % 39.9 % (20.0-40.0); MEAN CELL VOLUME 78.7 fl (81.0-99.0); MEAN CORPUSCULAR HEMOGLOBIN 26.2 pg (27.0-31.0); MEAN CORPUSCULAR HGB CONC 33.3 g/dL (33.0-37.0); MEAN PLATELET VOLUME 9.3 fl (7.2-11.7); MONO # 0.5 K/uL (0.0-0.8); MONO % 7.8 % (0.0-10.0); NEUT # 3.4 K/uL (1.8-7.0); NEUT % 49.3 % (50.0-75.0); NRBC % 0.1 % (0.0-0.0); RBC 4.12 Mil/uL (3.80-5.20); RED CELL DISTRIBUTION WIDTH 14.9 % (11.5-14.5); WHITE BLOOD COUNT 6.9 K/uL (4.8-10.8)
[2016-10-22 18:37] LABS: ALB/GLOB RATIO 1.1 (1.0-2.1); ALT/SGPT 46 U/L (9-52); AST/SGOT 27 U/L (14-36); BLOOD UREA NITROGEN 12 mg/dl (7-17); CALCIUM 8.6 mg/dL (8.4-10.2); GFR AFRICAN-AMERICAN > 60; GFR NON-AFRICAN AMERICAN > 60; LIPASE 136 U/L (23-300)
[2016-10-22 18:46] LABS: SQUAMOUS EPITHIAL 6 /hpf (0-5); URINE BILIRUBIN NEGATIVE (NEGATIVE); URINE BLOOD MODERATE (NEGATIVE); URINE CALCIUM OXALATE CRYSTALS OCC /hpf (<OCC); URINE CLARITY SLIGHTY-CLOUDY (Clear); URINE COLOR YELLOW (YELLOW); URINE GLUCOSE (UA) NEG (Normal); URINE LEUKOCYTE ESTERASE TRACE Leu/uL (Negative); URINE NITRATE NEGATIVE (NEGATIVE); URINE PROTEIN NEGATIVE (NEGATIVE); URINE UROBILINOGEN 0.2-1.0 mg/dL (0.2-1.0)
[2016-10-22] MEDS ORDERED: Iohexol 300 100 ML IJ ONE (21:14)
[2016-10-22] MEDS ORDERED: Sodium Chloride 0.9% 50 ML IV ONE (21:14)
--- NOTE | 2016-10-22 22:42 | CT ---
EXAM: CT Abdomen and Pelvis With Intravenous Contrast CLINICAL HISTORY: 46 years old, female; Pain; Abdominal pain; Localized; Right; Prior surgery; Surgery date: 1-6 months; Surgery type: Gb removed; Additional info: Abdominal pain ruq/rlq. H/o cholecystecomy 2 month TECHNIQUE: Axial computed tomography images of the abdomen and pelvis with intravenous contrast. All CT scans at this facility use one or more dose reduction techniques, viz.: automated exposure control; ma/kV adjustment per patient size (including targeted exams where dose is matched to indication; i.e. head); or iterative reconstruction technique. Coronal and sagittal reformatted images were created and reviewed. CONTRAST: 95 mL of administered intravenously. COMPARISON: CT - ABD PELVIS PO IV CONTRAST 07/23/2016 10:59:20 PM FINDINGS: Atelectasis/scarring at the lung bases. Fatty enlarged liver. Status post cholecystectomy. The spleen, pancreas and adrenal glands demonstrate no acute abnormalities. The kidneys are symmetric with no evidence of hydronephrosis. The aorta is unremarkable. Mild iliac calcification. Fat containing umbilical hernia. Shotty nodes. No small bowel obstruction. Normal caliber appendix. Colonic diverticula. Areas of apparent bowel prominence appear to be due to incomplete distention, minimal inflammation cannot be excluded. No ascites. No free air. Degenerative changes in the visualized spine. IMPRESSION: Fatty enlarged liver. Status post cholecystectomy. Fat containing umbilical hernia. Colonic diverticula. Areas of apparent bowel prominence appear to be due to incomplete distention, minimal inflammation cannot be excluded. Additional details/findings as above. Correlate clinically. Followup as warranted.
--- NOTE | 2016-10-22 23:17 | ED PDOC ---
- Laboratory Results Result Diagrams: 10/22/16 18:10 10/22/16 18:10 - ECG O2 Sat by Pulse Oximetry: 99 - Progress ED Course And Treament: Case endorsed to remote mortgage underwriter from [facility] pending CT EXAM: CT Abdomen and Pelvis With Intravenous Contrast CLINICAL HISTORY: 46 years old, female; Pain; Abdominal pain; Localized; Right; Prior surgery; Surgery date: 1-6 months; Surgery type: Gb removed; Additional info: Abdominal pain ruq/rlq. H/o cholecystecomy 2 month TECHNIQUE: Axial computed tomography images of the abdomen and pelvis with intravenous contrast. All CT scans at this facility use one or more dose reduction techniques, viz.: automated exposure control; ma/kV adjustment per patient size (including targeted exams where dose is matched to indication; i.e. head); or iterative reconstruction technique. Coronal and sagittal reformatted images were created and reviewed. CONTRAST: 95 mL of [id number] administered intravenously. COMPARISON: CT - ABD PELVIS PO IV CONTRAST 07/23/2016 10:59:20 PM FINDINGS: Atelectasis/scarring at the lung bases. Fatty enlarged liver. Status post cholecystectomy. The spleen, pancreas and adrenal glands demonstrate no acute abnormalities. The kidneys are symmetric with no evidence of hydronephrosis. The aorta is unremarkable. Mild iliac calcification. Fat containing umbilical hernia. Shotty nodes. No small bowel obstruction. Normal caliber appendix. Colonic diverticula. Areas of apparent bowel prominence appear to be due to incomplete distention, minimal inflammation cannot be excluded. No ascites. No free air. Degenerative changes in the visualized spine. IMPRESSION: Fatty enlarged liver Status post cholecystectomy. Fat containing umbilical hernia. Colonic diverticula. Areas of apparent bowel prominence appear to be due to incomplete distention, minimal inflammation cannot be excluded. Additional details/findings as above. Correlate clinically. Followup as warranted. Patient educated on findings, discharged with instructions to follow up PMD 2-3 days. Return to ED for worsening/concerning symptoms. Disposition - Clinical Impression Clinical Impression: Abdominal pain in female - POA Present On Arrival: None - Disposition Referrals: [facility] [Outside] Disposition: Routine/Home Disposition Time: 00:02 Condition: IMPROVED Instructions: Abdominal Pain (ED) Print Language: ICELANDIC
== END 2016-10-23 00:20 | disposition home or self-care (01) ==
LOC: H.ER 16:50
DX: K42.9 Umbilical hernia without obstruction or gangrene (principal); K57.30 Diverticulosis of large intestine without perforation or abscess without bleeding; Z90.49 Acquired absence of other specified parts of digestive tract

== ENCOUNTER 2017-03-24 08:24 | Emergency (ER) | payer SELFPAY ==
[2017-03-24 08:25] VITALS: BMI 32.5
[2017-03-24 08:36] VITALS: TEMP 99.8; O2SAT 100
[2017-03-24] MEDS ORDERED: Naproxen 500 MG TAB PO STA (09:20)
[2017-03-24] MEDS ORDERED: Naproxen 500 MG TAB PO ONE (09:28)
--- NOTE | 2017-03-24 09:34 | ED PDOC ---
HPI: Trauma/Fall - HPI Time Seen by Provider: 03/24/17 09:01 Chief Complaint (Nursing): Lower Extremity Problem/Injury Chief Complaint (Provider): Right Ankle Pain, Neck Pain History Per: Patient History/Exam Limitations: no limitations Additional Complaint(s): Marina is a 47 y/o female who presents to the ED after slipping and falling this morning. She complains of right ankle pain and swelling and neck pain. PMD: Past Medical History Reviewed: Historical Data, Nursing Documentation, Vital Signs Vital Signs: Last Vital Signs Temp 99.8 F H 03/24/17 08:35 Pulse 82 03/24/17 08:35 Resp 20 03/24/17 08:35 BP 133/60 03/24/17 08:35 Pulse Ox 100 03/24/17 08:35 - Medical History PMH: Gall Bladder Disease, Kidney Stones (questionable hx), Chronic Kidney Disease - Surgical History Surgical History: Cholecystectomy, - Family History Family History: States: Unknown Family Hx - Home Medications Home Medications: Ambulatory Orders Medication Instructions Recorded oxyCODONE/Acetaminophen [Percocet 1 ea PO Q6 PRN #10 tab 06/25/16 5/325 mg Tab] Ibuprofen [Motrin Tab] 600 mg PO Q8 PRN #60 tab 07/12/16 Sulfamethoxazole/Trimethoprim 1 tab PO BID #14 tab 07/12/16 [Bactrim DS 800 mg-160 mg] Dicyclomine [Bentyl] 20 mg PO Q12 PRN #20 tab 07/23/16 Acetaminophen [Tylenol Extra 500 mg PO TID PRN #50 tablet 03/24/17 Strength] Naproxen [Naprosyn] 500 mg PO BID PRN #20 tablet 03/24/17 - Allergies Allergies/Adverse Reactions: Allergies Allergy/AdvReac Type Severity Reaction Status Date / Time No Known Allergies Allergy Verified 03/24/17 09:05 Review of Systems ROS Statement: Except As Marked, All Systems Reviewed And Found Negative Musculoskeletal: Positive for: Neck Pain, Leg Pain (right ankle) Physical Exam - Reviewed Nursing Documentation Reviewed: Yes Vital Signs Reviewed: Yes - Physical Exam Appears: Positive for: Well, Non-toxic, No Acute Distress Neck: Negative for: Normal (paraspinal tenderness), Painless ROM Cardiovascular/Chest: Positive for: Regular Rate, Rhythm Respiratory: Positive for: CNT, Normal Breath Sounds Gastrointestinal/Abdominal: Positive for: Normal Exam, Soft Extremity: Positive for: Tenderness (right 5th metatarsal; ankle b/l), Swelling (right foot/ankle), Other (ecchymosis right ankle/foot) Neurologic/Psych: Positive for: Alert, Oriented - ECG O2 Sat by Pulse Oximetry: 100 (RA) Pulse Ox Interpretation: Normal Medical Decision Making Medical Decision Making: Time: 9:17 Initial Impression: Ankle Sprain, possible fracture Initial Plan: --Naproxen --Ankle XR --Foot XR Time: 9:50 --XRs show multiple fractures on the right ankle Time: 12:03 --CT Lower Extremity ordered Time: 13:10 FOOT X-RAY FINDINGS: BONES: A nondisplaced medial malleoli are fracture, a an oblique distal fibular diaphyseal fracture -not significantly displaced and a posterior malleoli are fracture are seen suggested. - no significantly displaced fracture fragments appreciated. Separation of fracture fragments are of most 3 data 3 mm. Tibiotalar and posterior subtalar arthrosis suggested. Generalized osteopenia noted. Soft tissue swelling and multiple posterior soft tissue ossifications calcifications are present. Inferior calcaneal spurring incidentally noted. Some possible wedging of the navicular bone per these images -likely chronic. JOINTS: Posterior subtalar joint and tibiotalar and 1st metatarsal-phalangeal joint arthrosis Probable sesamoid hallux arthrosis SOFT TISSUES: Soft tissue swelling. Partially visualize soft tissue calcifications ossifications OTHER FINDINGS: None. IMPRESSION: Multiple fractures medial and posterior malleolus. Distal fibular diaphyseal fracture -no significantly displaced fracture fragments Posterior subtalar joint arthrosis. First metatarsal-phalangeal joint arthrosis sesamoid hallux arthrosis Soft tissue swelling-infusion and posteromedial soft tissue calcification ossifications ANKLE X-RAY FINDINGS: BONES: A nondisplaced medial malleoli are fracture, a an oblique distal fibular diaphyseal fracture -not significantly displaced and a posterior malleoli are fracture are seen suggested. - no significantly displaced fracture fragments appreciated. Separation of fracture fragments are of most 3 data 3 mm. Tibiotalar and posterior subtalar arthrosis suggested. Generalized osteopenia noted. Soft tissue swelling and multiple posterior soft tissue ossifications calcifications are present. Inferior calcaneal spurring incidentally noted. Some possible wedging of the navicular bone per these images -likely chronic. JOINTS: Arthrosis. Ankle mortise maintained. Talar dome intact SOFT TISSUES: Two soft tissue swelling with joint effusion OTHER FINDINGS: None. IMPRESSION: Medial and posterior malleolar fractures -more proximal distal fibular diaphyseal fracture. No significantly displaced fracture fragments. Time: 13:30 CT LOWER EXTREMITY FINDINGS: There is a comminuted oblique minimally displaced fracture of the distal tibia. There is a nondisplaced medial malleolar fracture. There is an oblique nondisplaced fracture of the distal fibular diaphysis above the level of the plafond. There is no other fracture identified. The talar dome is smooth. There is probable mild tibiotalar osteoarthritis. There is talocalcaneal osteoarthritis at the posterior talocalcaneal articulation. The remaining articulations are grossly intact. There is generalized osteopenia. IMPRESSION: Comminuted oblique distal tibial fracture including medial malleolar fracture without significant displacement. Oblique nondisplaced distal fibular diaphysis fracture. ------ Scribe~Attestation: Documented by Lino Newman, acting as a scribe for Ana Paula Arzate MD. Provider Scribe~Attestation: All medical record entries made by the Scribe were at my direction and personally dictated by me. I have reviewed the chart and agree that the record accurately reflects my personal performance of the history, physical exam, medical decision making, and the department course for this patient. I have also personally directed, reviewed, and agree with the discharge instructions and disposition. patient seen by podiatry. posterior splint applied. followup for further training. Disposition - Clinical Impression Clinical Impression: Ankle fracture - Patient ED Disposition Is Patient to be Admitted: No Doctor Will See Patient In The: Office Counseled Patient/Family Regarding: Diagnosis, Need For Followup, Rx Given - Disposition Referrals: Kristian Hewitt DPM [Staff Provider] - Podiatry Clinic [Outside] Disposition: Routine/Home Disposition Time: 14:08 Condition: IMPROVED Prescriptions: Acetaminophen [Tylenol Extra Strength] 500 mg PO TID PRN #50 tablet PRN Reason: Pain, Moderate (4-7) Naproxen [Naprosyn] 500 mg PO BID PRN #20 tablet PRN Reason: Pain, Moderate (4-7) Instructions: Ankle Fracture (ED) Forms: [facility] (Austrian) Print Language: PERUVIAN - POA Present On Arrival: Falls Or Trauma
--- NOTE | 2017-03-24 10:38 | RAD ---
PROCEDURE: Right Ankle Radiographs. HISTORY: slip and fall with swelling COMPARISON: None FINDINGS: BONES: A nondisplaced medial malleoli are fracture, a an oblique distal fibular diaphyseal fracture -not significantly displaced and a posterior malleoli are fracture are seen suggested. - no significantly displaced fracture fragments appreciated. Separation of fracture fragments are of most 3 data 3 mm. Tibiotalar and posterior subtalar arthrosis suggested. Generalized osteopenia noted. Soft tissue swelling and multiple posterior soft tissue ossifications calcifications are present. Inferior calcaneal spurring incidentally noted. Some possible wedging of the navicular bone per these images -likely chronic. JOINTS: Arthrosis. Ankle mortise maintained. Talar dome intact SOFT TISSUES: Two soft tissue swelling with joint effusion OTHER FINDINGS: None. IMPRESSION: Medial and posterior malleolar fractures -more proximal distal fibular diaphyseal fracture. No significantly displaced fracture fragments.
--- NOTE | 2017-03-24 11:12 | CP.PCM.CON ---
History of Present Illness - History of Present Illness History of Present Illness: Podiatry Consult- Dr. Hewitt 47 y.o female with PMH of DM seen in the ED for right ankle pain. Patient reports that at 7:45AM this morning she slipped and fell outside. Patient reports her left foot slipped and she fell back on her right ankle. Patient reports pain to the right ankle. She describes the pain as a throbbing pain. She rates her pain 10/10 and reports being localized to the right ankle. She reports not eating or drinking anything since 6AM this morning. She denies n/v/ sob/cp/chills or f. 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) PSH: bilateral congential foot deformity surgery, gallbladder removal, 3 c- sections SH: denies smoking, drinking or ilicited drug use MEDS: metformin ALL: NKDA FH: mother-DM, father-unknown PMD: Ruby Past Patient History - Past Medical History & Family History Past Medical History?: No - Past Social History Smoking Status: Never Smoked - CARDIAC Hx Cardiac Disorders: No - PULMONARY Hx Respiratory Disorders: No - NEUROLOGICAL Hx Neurological Disorder: No - HEENT Hx HEENT Problems: No - RENAL Hx Chronic Kidney Disease: Yes Hx Kidney Stones: Yes (questionable hx) - ENDOCRINE/METABOLIC Hx Endocrine Disorders: No Hx Diabetes Mellitus Type 2: Yes - HEMATOLOGICAL/ONCOLOGICAL Hx Blood Disorders: No - INTEGUMENTARY Hx Dermatological Problems: No - MUSCULOSKELETAL/RHEUMATOLOGICAL Hx Falls: No - GASTROINTESTINAL Hx Gall Bladder Disease: Yes - GENITOURINARY/GYNECOLOGICAL Hx Genitourinary Disorders: No - PSYCHIATRIC Hx Psychophysiologic Disorder: No Hx Substance Use: No - SURGICAL HISTORY Hx Cholecystectomy: Yes - ANESTHESIA Hx Anesthesia: Yes Hx Anesthesia Reactions: No Hx Malignant Hyperthermia: No Meds Home Medications: Home Medication List Medication Instructions Recorded Confirmed Type Acetaminophen [Tylenol Extra 500 mg PO TID PRN #50 tablet 03/24/17 Rx Strength] Naproxen [Naprosyn] 500 mg PO BID PRN #20 tablet 03/24/17 Rx Non-Formulary 1 unit XX DAILY #1 ea 03/24/17 Rx Allergies/Adverse Reactions: Allergies Allergy/AdvReac Type Severity Reaction Status Date / Time No Known Allergies Allergy Verified 03/24/17 09:05 Physical Exam - Constitutional Appears: Well, Non-toxic, No Acute Distress - Extremities Exam Additional comments: LE examination Vasc: DP and PT unpalpable secondary to edema, dopplerable DP and PT: biphasic to R LE. L 1/4 DP and PT 1/4, localized nonpitting edema noted to L ankle, CFT < 3 seconds x10 digits Ortho: pain with palpation to the entire R ankle, MM 2/5 secondary to guarding in all four compartments. able to wiggle toes. Neuro: gross and protective sensation intact Derm: no ecchymosis noted, no open lesions, no blisters, no clinical signs of infection, skin color WNL - Neurological Exam Neurological exam: Alert, Oriented x3 - Psychiatric Exam Psychiatric exam: Normal Affect, Normal Mood Results - Vital Signs Recent Vital Signs: Last Vital Signs Temp 99.8 F H 03/24/17 08:35 Pulse 82 03/24/17 08:35 Resp 20 03/24/17 08:35 BP 133/60 03/24/17 08:35 Pulse Ox 100 03/24/17 10:26 Assessment & Plan - Assessment and Plan (Free Text) Assessment: 47 y.o female with right ankle trimalleolar fracture Plan: Patient examined and evaluated Discussed plan in detail with attending Charts, labs, vitals reviewed X-rays reviewed. Impression: Medial and posterior malleolar fractures -more proximal distal fibular diaphyseal fracture. No significantly displaced fracture fragments. CT ordered and reviewed. Impression: comminuted oblique distal tibial fracture, including medial malleolar fracture without significant displacement. Oblique nondisplaced distal fibular diaphysis fracture. Rx for medical clearance by primary Patient requires surgical intervention for right ankle fracture. Explained to patient in detail Modified ch with posterior splint placed to RLE Pt to NWB with crutches Instructed on RICE protocol Pt to followup in [facility] pod[facility]ry clinic within 1 week Thank you for the consult
--- NOTE | 2017-03-24 13:12 | RAD ---
PROCEDURE: Right Foot Radiographs. HISTORY: slip and fall with swelling COMPARISON: None. FINDINGS: BONES: A nondisplaced medial malleoli are fracture, a an oblique distal fibular diaphyseal fracture -not significantly displaced and a posterior malleoli are fracture are seen suggested. - no significantly displaced fracture fragments appreciated. Separation of fracture fragments are of most 3 data 3 mm. Tibiotalar and posterior subtalar arthrosis suggested. Generalized osteopenia noted. Soft tissue swelling and multiple posterior soft tissue ossifications calcifications are present. Inferior calcaneal spurring incidentally noted. Some possible wedging of the navicular bone per these images -likely chronic. JOINTS: Posterior subtalar joint and tibiotalar and 1st metatarsal-phalangeal joint arthrosis Probable sesamoid hallux arthrosis SOFT TISSUES: Soft tissue swelling. Partially visualize soft tissue calcifications ossifications OTHER FINDINGS: None. IMPRESSION: Multiple fractures medial and posterior malleolus. Distal fibular diaphyseal fracture -no significantly displaced fracture fragments Posterior subtalar joint arthrosis. First metatarsal-phalangeal joint arthrosis sesamoid hallux arthrosis Soft tissue swelling-infusion and posteromedial soft tissue calcification ossifications
--- NOTE | 2017-03-24 13:31 | CT ---
PROCEDURE: CT right ankle HISTORY: right ankle fracture COMPARISON: Not available TECHNIQUE: 2.5 mm contiguous axial sections were acquired through the right ankle. Sagittal and coronal images were reformatted from the axial scan. Total exam DLP: 307.10 mGy-cm This CT exam was performed using 1 or more of the following dose reduction techniques: Automated exposure control, adjustment of the mA and/or kV according to patient size, and/or use of iterative reconstruction technique. FINDINGS: There is a comminuted oblique minimally displaced fracture of the distal tibia. There is a nondisplaced medial malleolar fracture. There is an oblique nondisplaced fracture of the distal fibular diaphysis above the level of the plafond. There is no other fracture identified. The talar dome is smooth. There is probable mild tibiotalar osteoarthritis. There is talocalcaneal osteoarthritis at the posterior talocalcaneal articulation. The remaining articulations are grossly intact. There is generalized osteopenia. IMPRESSION: Comminuted oblique distal tibial fracture including medial malleolar fracture without significant displacement. Oblique nondisplaced distal fibular diaphysis fracture.
[2017-03-24 15:11] VITALS: BP 136/70; PULSE 70; RESP 16
== END 2017-03-24 14:00 | disposition home or self-care (01) ==
LOC: H.ER 08:24
DX: S82.91XA Unspecified fracture of right lower leg, initial encounter for closed fracture (principal); W01.0XXA Fall on same level from slipping, tripping and stumbling without subsequent striking against object, initial encounter; Y92.89 Other specified places as the place of occurrence of the external cause; Z83.3 Family history of diabetes mellitus; Z87.442 Personal history of urinary calculi
CPT/HCPCS: 29125; 73610; 73630; 73700; 97116; 97161; 99282; G8978; G8979; G8980

== ENCOUNTER 2017-04-07 09:56 | Day surgery (SDC) | payer SELFPAY ==
[2017-04-05 10:16] VITALS: BMI 34.5
[2017-04-07] MEDS ORDERED: Lactated Ringer's 1,000 ML IV ONE (11:55)
[2017-04-07] MEDS ORDERED: Lidocaine 1% Inj (20ml) ONE (12:30)
[2017-04-07] MEDS ORDERED: Bupivacaine 0.5% Inj(30mL) ONE (12:30)
[2017-04-07] MEDS ORDERED: Midazolam 2 MG/2 ML VIAL ONE (12:45)
[2017-04-07] MEDS ORDERED: Lidocaine 4% (Laryng-O-Jet) Kit MM ONE (12:45)
[2017-04-07] MEDS ORDERED: Propofol 10 mg/ml Inj (20 ML) ONE ×2 (12:45→17:33)
[2017-04-07] MEDS ORDERED: Succinylcholine 200 mg/10 ml Inj IV ONE (12:46)
[2017-04-07] MEDS ORDERED: Ropivacaine 0.5% 30ML IV ONE (12:49)
[2017-04-07] MEDS ORDERED: Bupivacaine HCl 0.5% PF (10 ml) Inj ONE (12:49)
[2017-04-07] MEDS ORDERED: Rocuronium 10 mg/ml (5 ml) ONE (14:39)
[2017-04-07] MEDS ORDERED: ePHEDrine 50 mg/ml Inj ONE (15:11)
[2017-04-07] MEDS ORDERED: Neostigmine Methylsulfate 2 MG/2 ML ML IV ONE (15:44)
--- NOTE | 2017-04-07 15:44 | PCM.ANESB2 ---
Popliteal Nerve Block - Popliteal Nerve Block Date of Procedure: 04/07/17 Anesthesiologist: Josué Pre-Procedure Diagnosis: Right ankle fracture Post-Procedure Diagnosis: Same Procedure Performed: Popliteal Nerve Block Right - Procedure Popliteal Nerve Block: This procedure was explained to the patient that it is for post-operative pain management. Consent was obtained after a thorough discussion with the patient regarding the benefits and possible complications of local anesthetic block of the sciatic nerve at the popliteal level. The patient was brought to the operating room and standard monitors are applied. Time-out was held with the circulating nurse to confirm the correct surgery and the appropriate block. After applying oxygen by nasal cannula and administering IV Sedation, patient's operative leg was gently raised and supported and the groove in between the biceps femoris and vastus lateralis muscles was carefully palpated. The skin approximately 8cm above the popliteal crease was then marked. The ultrasound transducer was then applied to the posterior thigh approximately 8cm above the popliteal crease in the transverse plane and the sciatic nerve before its division was visualized lateral to the popliteal artery and in between the bicep femoris and semimembranosus/semitendinosus muscles. After identification, the lateral portion of the thigh was prepped with Betadine solution three times and Lidocaine 1% was injected subcutaneously for topical anesthesia. At this point, a # 21 gauge Stimuplex insulated 4 inch needle was inserted into pre-marked area and advanced in a perpendicular direction. The needle was inserted above the ultrasound transducer in-plane towards the sciatic nerve in a [id number] direction. Needle advancement was performed carefully under direct ultrasound visualization. Nerve stimulator was used and dorsiflexion of the __right___ foot was elicited at a current of __0.4___ MA. After repeated negative aspiration, __20___cc of ___.5__ % ___ropivacaine was injected. Under ultrasound guidance the local anesthetics were observed surrounding sciatic nerve . The needle was removed intact and sterile dressing was applied. The patient tolerated the popliteal nerve block well with stable vital signs and was subsequently prepared for the surgery.
--- NOTE | 2017-04-07 15:45 | PCM.ANESB3 ---
Femoral Nerve Block - Femoral Nerve Block Date of Procedure: 04/07/17 Anesthesiologist: Josué Pre-Procedure Diagnosis: Right ankle fracture Post-Procedure Diagnosis: Same Procedure Performed: Femoral Nerve Block Right - Procedure Femoral Nerve Block: The procedure was explained to the patient that it is for the post-operative pain management. Consent was obtained after a thorough discussion with the patient regarding the benefits and possible complications of local anesthetic block of the femoral nerve at the inguinal crease area. The patient was brought to the operating room and standard monitors were applied. Time-out was held with the circulating nurse to confirm the correct surgery and the appropriate block. After applying oxygen by nasal cannula and administering IV Sedation, patient was placed in supine position with fully extended lower extremities and the groin exposed. The femoral artery was then carefully palpated. The ultrasound transducer was then applied to this area in the transverse plane and the femoral nerve was visualized lateral to the femoral artery and underneath the fascia iliaca. After thorough identification, the inguinal crease area was prepped with Betadine solution three times and 1 % Lidocaine was injected subcutaneously for topical anesthesia. At this point, a #22 gauge Stimuplex 2-inch needle was inserted immediately lateral to the femoral artery pulse at the inguinal crease and advanced perpendicularly. The needle was inserted to the ultrasound transducer in-plane towards the femoral nerve in a [id number] direction. Needle advancement was performed carefully under direct ultrasound visualization. Nerve stimulator was used and twitch of the quadriceps muscle was obtained at current of __0.4___ MA. After negative aspiration, __10___cc of __.5___% ropivacaine ____was injected. Under ultrasound guidance the local anesthetics were observed spreading below fascia iliaca and around the femoral nerve. The needle was removed intact and sterile dressing was applied. The patient had stable vital signs, was conscious and in no apparent distress. The patient tolerated the femoral nerve block well with stable vital signs and was prepared for subsequent surgery.
[2017-04-07] MEDS ORDERED: HYDROmorphone 0.5 mg/0.5 ml ISec IVP PRN (16:02)
[2017-04-07] MEDS ORDERED: Sodium Chloride 0.9% 1,000 ML IV ONE (16:11)
[2017-04-07] MEDS ORDERED: Desflurane Inhalation Anesthetic Liq (240 ml) ONE (16:26)
[2017-04-07] MEDS ORDERED: Dexamethasone 4 mg/1 ml ONE (16:38)
[2017-04-07] MEDS ORDERED: Absorbable Gelatin Sponge Size 100 ONE (17:21)
[2017-04-07] MEDS ORDERED: Thrombin Topical 5,000 Int Units Spray Kit ONE (17:21)
[2017-04-07] MEDS ORDERED: Sevoflurane - Inhalation Anesthetic Liq (250 ml) ONE (17:22)
[2017-04-07] MEDS ORDERED: Esmolol 100 mg/10ml Inj IV ONE (17:33)
[2017-04-07] MEDS ORDERED: Thrombin Topical 5,000 Int Units Spray Kit TOP ONE (17:40)
--- NOTE | 2017-04-07 17:53 | CP.PCM.PN ---
Subjective - Date & Time of Evaluation Date of Evaluation: 04/07/17 Time of Evaluation: 12:00 - Subjective Subjective: Antonietta-operative Note- Dr. Cortez 47 y.o female with PMH of DM seen in [facility] for antonietta-operative evaluation for right trimalleolar fracture ORIF. Patient is seen at bedside with family friend. Patient reports she slipped and fell (DOI: 03/24/17). Patient has been NWB with posterior splint and crutches. Patient reports she has been resting as much as possible. Today reports pain 5/10 to the entire right ankle; pain does not radiate. Patient reports the pain has improved. Patient reports not eating or drinking since 10pm last night. Denies n/v/sob/cp/chills or f PMH: DM, congential foot deformity PSH: bilateral congential foot deformity surgery, gallbladder removal, 3 c- sections SH: denies smoking, drinking or ilicited drug use MEDS: metformin, Naproxen, Tylenol ALL: NKDA FH: mother-DM, father-unknown PMD: Ruby Objective - Vital Signs/Intake and Output Vital Signs (last 24 hours): Temp Pulse Resp BP Pulse Ox 98.6 F 81 18 110/62 95 04/07/17 11:10 04/07/17 11:10 04/07/17 11:10 04/07/17 11:10 04/07/17 11:10 Intake and Output: 04/07/17 04/07/17 06:59 18:59 Intake Total 1200 Balance 1200 - Medications Medications: Current Medications Hydromorphone HCl (Dilaudid) 0.5 mg IVP Q5M PRN PRN Reason: Pain, severe (8-10) Stop: 04/07/17 23:59 Metoclopramide HCl (Reglan) 10 mg IVP ONCE PRN PRN Reason: Nausea/Vomiting Stop: 04/07/17 18:02 Ondansetron HCl (Zofran Inj) 4 mg IVP ONCE PRN PRN Reason: Nausea/Vomiting Stop: 04/07/17 18:02 - Constitutional Appears: Well, Non-toxic, No Acute Distress - Extremities Exam Additional comments: LE examination Vasc: DP and PT palpable, localized nonpitting edema noted to L ankle, CFT < 3 seconds x10 digits Ortho: pain with palpation to the entire R ankle, MM unable to perform secondary to guarding in all four compartments. Able to wiggle toes. Neuro: gross and protective sensation intact Derm: ecchymosis noted to the lateral and medial side of ankle, no open lesions , no blisters, no clinical signs of infection, skin color WNL - Neurological Exam Neurological Exam: Alert, Awake, Oriented x3 - Psychiatric Exam Psychiatric exam: Normal Affect, Normal Mood Assessment and Plan - Assessment and Plan (Free Text) Assessment: 47 y.o female with PMH of DM seen in [facility] for antonietta-operative evaluation for right trimalleolar fracture ORIF. Plan: Pt was seen and examined in [facility] Pt NPO status was confirmed All pre-op testing and clearance in chart Pt has exhausted all conservative treatment at this time and is opting for surgical intervention Pt was explained procedure and post-operative course All pt's questions were answered to satisfaction No guarantees were made Pt understands all risks, benefits and complications of procedure Pt will follow-up with Dr. Cortez within 1 week of surgery
--- NOTE | 2017-04-07 17:53 | CP.SDSHP ---
Same Day Surgery H & P - History Proposed Procedure: right trimalleolar ankle fracture ORIF Pre-Op Diagnosis: right ankle trimalleolar fracture - Previous Medical/Surgical History Pain: 5. - Allergies Allergies: Allergies No Known Allergies Allergy (Verified 04/07/17 10:43) - Physical Exam Vital Signs: Vital Signs 04/07/17 11:10 Temperature 98.6 F Pulse Rate 81 Respiratory 18 Rate Blood Pressure 110/62 O2 Sat by Pulse 95 Oximetry Mental Status: Alert & Oriented x3 - {Optional Preform as Required} Integument: WNL - Impression Impression: Pt was seen and examined in SDS. Pt NPO status was confirmed. All pre-op testing and clearance in chart. Pt has exhausted all conservative treatment at this time and is opting for surgical intervention. Pt was explained procedure and post-operative course. All pt's questions were answered to satisfaction. No guarantees were made. Pt understands all risks, benefits and complications of procedure. Pt will follow-up with Dr. Cortez within 1 week of surgery Short Stay Discharge - Short Stay Discharge Admitting Diagnosis/Reason for Visit: S82.856Y Disposition: HOME/ ROUTINE Referrals: Major Cortez MD [Staff Provider] - Samir Pickard MD [Primary Care Provider] - Instructions: Cephalexin (By mouth), Oxycodone/Acetaminophen (By mouth), ORIF of an Ankle Fracture (DC) Additional Instructions (Diet, Activity): -Patient in good/stable condition for discharge home -Pt to resume medications per medical reconciliation -Resume regular diet Please keep dressing clean, dry, & intact to surgical site -Use plastic bag over bandage for showering -Wear post op shoe at all times when ambulating -Call clinic if you see signs of infection (redness, swelling, malodor) -Please make an appointment to see in office/clinic within 1 week for post-op check Progress Note/Discharge Note with Instructions: - Patient evaluated bedside in recovery s/p surgical procedure. - After surgical procedure patient in NAD - (+) Void, (+) Appetite - Capillary refill time <3s and NVSI intact. - Patient denies complaints at this time - Post operative instructions and plan of care explained to patient at length. - Pt. acknowledges understanding. - Patient stable for DC per podiatric surgery
[2017-04-07] MEDS ORDERED: Bupivacaine 0.5% 50 ML IJ ONE ×2 (18:00)
[2017-04-07] MEDS ORDERED: Oxycodone/Acetaminophen 5/325 mg Tab PO PRN ×2 (18:17)
[2017-04-07] MEDS ORDERED: Acetaminophen-Codeine 300/30 mg Tab PO PRN (18:17)
--- NOTE | 2017-04-07 18:23 | PCM.SURG1 ---
Surgeon's Initial Post Op Note - Surgeon's Notes Surgeon: Dr. Cortez Plastics Fitter: Dr. Miller, Dr. Sudheer Hdez, Dr. Perez Type of Anesthesia: General Endo Anesthesia Administered By: Dr. Pascual Pre-Operative Diagnosis: right trimalleolar ankle fracture Operative Findings: see dications. post injection- 6cc of .5% marcaine plain; materials 3-0 nylon, 3-0 vicryl, 4-0 vicryl. internal fixation: screws and a 7 hole fibular plate Post-Operative Diagnosis: same Operation Performed: ORIF of right trimalleolar fracture Specimen/Specimens Removed: none Estimated Blood Loss: EBL {In ML}: 25 Blood Products Given: N/A Drains Used: No Drains Post-Op Condition: Good Date of Surgery/Procedure: 04/07/17 Time of Surgery/Procedure: 15:00
[2017-04-07 21:39] VITALS: BP 115/79; PULSE 99; RESP 17; TEMP 98.5; O2SAT 96
--- NOTE | 2017-04-08 12:49 | RAD ---
PROCEDURE: Right Ankle Radiographs. HISTORY: s/p right foot surgery COMPARISON: Preoperative examination 03/24/2017 FINDINGS: BONES: Satisfactory and anatomic alignment of major fracture fragments distal tibia and fibula. No evidence of orthopedic hardware failure. JOINTS: No acute findings. SOFT TISSUES: Normal. OTHER FINDINGS: None. IMPRESSION: Satisfactory postoperative status.
--- NOTE | 2017-04-09 08:26 | OP ---
PROCEDURE DATE: 04/07/2017 PREOPERATIVE DIAGNOSIS: Right ankle, trimalleolar ankle fracture. POSTOPERATIVE DIAGNOSIS: Right ankle, trimalleolar ankle fracture. PROCEDURES PERFORMED: Right ankle open reduction and internal fixation of trimalleolar ankle fracture. SURGEON: Dr. Cortez. FINISHED STOCK INSPECTOR: Luis Miller, PGY-3, Dr. Carlos Hdez, PGY-[address] Perez, PGY-1. ANESTHESIOLOGIST: Dr. Pascual. TYPE OF ANESTHESIA: General sedation. INDICATIONS: This patient is a 47-year-old female with the aforementioned diagnosis. The patient suffered a traumatic ankle injury to her right ankle on 03/24/2017, which was confirmed to be a trimalleolar ankle fracture with diagnostic imaging. The patient desires surgical intervention at this time. All alternatives, benefits, complications, and risks of surgical procedure were explained to the patient at length with the patient verbalizes understanding and wished to proceed. All questions were addressed and answered. No guarantees were given nor implied. The consent was signed, and n.p.o. status was confirmed prior to bringing the patient to the operating room. OPERATIVE PROCEDURE: The patient was brought into the operating room and placed on the operating room table in a lateral position. A pneumatic thigh tourniquet was placed on the patient's right thigh. After induction of general anesthesia, the right lower extremity was then prepped and draped in the normal sterile manner and the procedure began. DESCRIPTION OF PROCEDURE: Right ankle open reduction and internal fixation of trimalleolar ankle fracture. Attention was directed to the posterolateral aspect of the patient's right ankle where a curvilinear incision was made with a 15 blade extending from proximal to the fracture site, distal and inferior to the lateral malleolus. Incision was made with a 15 blade and deepened through the superficial and subcutaneous tissues utilizing sharp and blunt dissection. Care was taken to retract all vital neurovascular structures throughout the duration of the procedure. The sural nerve and lesser saphenous vein were then identified and retracted throughout the duration of the procedure. Next, the peroneal tendon groove were identified posterior to the fibula and they were retracted and protected throughout the duration of the procedure. Dissection was then carried down to the level of the periosteum overlying the distal fibula. At this time, a 15-blade was then utilized to make a linear incision through the periosteum overlying the distal aspect of the fibula. The fracture site could then be identified at this time and a long oblique fracture through the distal aspect of the fibula. A 15 blade and [place] elevator were then utilized to free the periosteum and capsular tissues from the fracture site. Next, a dental pick and [place] elevator along with a saline flush were utilized to clear any soft tissue debris within the fracture site itself. Once there was clear visualization of the fracture site, a bone reduction forceps were utilized to achieve anatomic reduction of the fracture site and temporarily hold it in place. It was noted at this time that the fibular fracture had been anatomically reduced. Next, 2 Synthes 3.5 mm fully threaded cortical screws were inserted perpendicular to the fracture site to serve as lag screws utilizing standard AO technique. The temporary bone reduction forceps were removed from the fracture site and it was noted that the 2 screws adequately held the fracture reduction. Next, attention was directed to the posterior aspect of the distal tibia. Dissection was then carried down to the level of the periosteum overlying the distal aspect of the tibia. A 15 blade was then utilized to make a linear longitudinal incision through the periosteum overlying the distal aspect of the tibia. At this time, the fracture in the posterior aspect of the distal tibia could be identified. A [place] elevator and 15 blade were then utilized to free the periosteum or soft tissue impingement of the fracture site. At this time, a [place] elevator and manual reduction techniques were utilized to further reduce the fracture of the posterior tibia. Once the fracture was anatomically reduced, 2 guidewires for Synthes cannulated 4.5 mm partially-threaded screws were inserted across the fracture site to serve as a temporary fixation. Intraoperative fluoroscopy was then utilized to confirm appropriate reduction of the fracture site and positioning of the guidewires. Next, 2 Synthes 4.5 mm cannulated partially-threaded screws were inserted over the previously inserted guidewires utilizing standard AO technique. The wires were inserted perpendicular to the fracture site and tightened to 2-finger tightness. Intraoperative fluoroscopy was then again utilized to confirm appropriate reduction of the fracture and at this time, it was noted that there was a excellent contouring of the tibial plafond in the ankle joint. The temporary guidewires were then removed and the area was flushed with copious amounts of sterile normal saline. Attention was then directed back to the lateral aspect of the fibula. At this time, a Synthes 2.4/2.7 distal lateral fibular locking plate was applied to the lateral aspect of the fibula. The plate was then temporarily secured to the lateral side of the fibula utilizing an olive wire. Intraoperative fluoroscopy was then utilized to confirm appropriate positioning of the plate. Next, the plate was temporarily fixated to the lateral aspect of the fibula proximally with three 2.7 mm fully threaded Synthes locking screws and distally with five 2.7 mm Synthes fully threaded locking screws and one 3.5 mm fully threaded cortical screws. All screws were inserted utilizing standard AO technique and tightened to two finger tightness. Once, all screws were inserted and the plate was appropriately fixated to the lateral aspect of the fibula. Intraoperative fluoroscopy was utilized to confirm excellent reduction of the fibular fracture and positioning of the internal hardware. The surgical area was then flushed with copious amounts of sterile normal saline. The capsular and periosteal tissues were then re-approximated utilizing 2-0 Vicryl suture. The subcutaneous tissues were then re-approximated utilizing 3-0 Vicryl suture, the skin was then re-approximated utilizing 4-0 nylon suture in a simple interrupted fashion. At this time, the patient was then positioned from the lateral decubitus position into a supine position. Once, the patient was appropriately positioned, attention was directed to the medial aspect of the ankle overlying the medial malleolus. A linear incision was then made overlying this area utilizing a 15-blade. The incision was deepened through the superficial and subcutaneous tissues utilizing sharp and blunt dissection. Care was taken to retract all vital neurovascular structures throughout the duration of the procedure. A transverse fracture of the medial malleolar could be clearly identified, also connected to the posterior fracture of the tibia and a 15-blade and [place] elevator were then utilized to incise the periosteum and cleared of any periosteum soft tissue debris within the fracture site. Saline flush was then utilized to further clear the fracture site of any debris. Once the fracture site was cleared and could be visualized, manual reduction techniques were utilized to anatomically reduce the fracture. Next, 2 guidewires from the Synthes 4.5 mm cannulated screw set were utilized and driven across the fracture site from inferior to superior to serve as temporary fixation. Intraoperative fluoroscopy was then utilized to confirm appropriate positioning of the guidewires and reduction of the fracture. Next, 2 Synthes 4.5 mm partially-threaded cannulated screws were inserted over the previously inserted guidewires utilizing standard AO technique and tightened to two finger tightness. Intraoperative fluoroscopy was then used to confirm final reduction of all fracture site. It was noted that there was excellent positioning of the internal fixation and adequate anatomical reduction of the fracture site and contour of the ankle joint. The temporary guidewires were then removed from the surgical field, attention was then directed to the medial malleolar again where a bony fragments were noted. The bony fragments were then removed with a rongeur from the surgical field and passed to the back table. The surgical area was then flushed with copious amounts of sterile normal saline. The periosteal and capsular tissues were then re-approximated utilizing 2-0 Vicryl suture. The skin was then re-approximated utilizing 4-0 Vicryl suture. The skin was then re-approximated utilizing 4-0 nylon suture in a similar interrupted fashion. Intraoperative injections consisted of 6 mL of 0.5% Marcaine plain. Postoperative dressings consisted of saline-soaked gauze, DSD, Sergey, Webril, bivalved bony fiberglass clad cast and Robert bandages. POSTOPERATIVE CONDITION: The patient tolerated the procedure and anesthesia well with no apparent complications or complaints. The patient was escorted from the OR to the recovery room with vital signs stable and neurovascular status intact. The patient will follow up with Dr. Cortez in the [facility] clinic on an outpatient basis. Luis Miller DPM Major Cortez DPM [facility]
== END 2017-04-07 21:45 | disposition home or self-care (01) ==
LOC: H.OPSURG 09:56 → H.MEDSURG1 20:17 → H.OPSURG 21:45
PROVIDERS: ATTEND Podiatrist
DX: S82.851A Displaced trimalleolar fracture of right lower leg, initial encounter for closed fracture (principal); X58.XXXA Exposure to other specified factors, initial encounter; W01.0XXA Fall on same level from slipping, tripping and stumbling without subsequent striking against object, initial encounter; E11.9 Type 2 diabetes mellitus without complications
CPT/HCPCS: 27822; 27829; 73610; 76000; 82948; C1713; J0330; J0690; J1100; J2001; J2250; J2405; J2704; J2710; J2765; J3010; J7040; J7120

== ENCOUNTER 2017-04-21 14:06 | Inpatient (IN) | payer MEDICAID, SELFPAY ==
[2017-04-21 14:06] VITALS: BMI 34.5
[2017-04-21] MEDS ORDERED: Oxycodone/Acetaminophen 5/325 mg Tab PO ONE (16:47)
[2017-04-21] MEDS ORDERED: Oxycodone/Acetaminophen 5/325 mg Tab ONE (16:49)
--- NOTE | 2017-04-21 16:50 | RAD ---
PROCEDURE: Right Foot Radiographs. HISTORY: foot pain COMPARISON: 03/24/2017. FINDINGS: BONES: There is no acute displaced fracture or bone destruction. Bone alignment is normal. There is a prominent plantar calcaneal spur. 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 SOFT TISSUES: There is severe soft tissue swelling in the dorsal forefoot. OTHER FINDINGS: Status post ORIF in distal tibia and fibula IMPRESSION: Severe soft tissue swelling in the dorsal forefoot. No acute displaced fracture or bone destruction.
[2017-04-21 17:14] LABS: BASO # 0.1 K/uL (0.0-0.2); BASO % 0.8 % (0.0-2.0); EOS # 0.1 K/uL (0.0-0.7); EOS % 0.9 % (0.0-4.0); HEMOGLOBIN 9.8 g/dL (12.0-16.0); LYMPH # 2.4 K/uL (1.0-4.3); LYMPH % 20.3 % (20.0-40.0); MEAN CELL VOLUME 78.9 fl (81.0-99.0); MEAN CORPUSCULAR HEMOGLOBIN 25.3 pg (27.0-31.0); MEAN CORPUSCULAR HGB CONC 32.1 g/dL (33.0-37.0); MEAN PLATELET VOLUME 7.5 fl (7.2-11.7); MONO # 0.6 K/uL (0.0-0.8); MONO % 5.1 % (0.0-10.0); NEUT # 8.7 K/uL (1.8-7.0); NEUT % 72.9 % (50.0-75.0); NRBC % 0.1 % (0.0-0.0); RBC 3.89 Mil/uL (3.80-5.20); WHITE BLOOD COUNT 11.9 K/uL (4.8-10.8)
--- NOTE | 2017-04-21 17:42 | ED PDOC ---
Lower Extremity Pain/Injury Time Seen by Provider: 04/21/17 15:36 Chief Complaint (Nursing): Wound Check Chief Complaint (Provider): Wound check History Per: Family History/Exam Limitations: physical impairment (surgery on right foot) Onset/Duration Of Symptoms: Worse Since Current Symptoms Are (Timing): Still Present Additional Complaint(s): Marina Augustin, a 47 year old female was brought into the ED by her family for evaluation of her right foot post-surgery (orif for trimalleolar fracture). Patient had surgery 2 weeks ago after breaking her falling down in snow and breaking her foot. Currently, her right foot is swollen and hurts. Also reports of fever. Denies of smoking or drinking alcohol. PMD: Prasanna Beltran Past Medical History Reviewed: Historical Data, Nursing Documentation, Vital Signs Vital Signs: Last Vital Signs Temp 98.6 F 04/21/17 14:07 Pulse 76 04/21/17 14:07 Resp 16 04/21/17 14:07 BP 132/82 04/21/17 14:07 Pulse Ox 98 04/21/17 14:07 - Medical History PMH: Gall Bladder Disease, Kidney Stones (questionable hx), Chronic Kidney Disease - Surgical History Surgical History: Cholecystectomy, - Family History Family History: States: Unknown Family Hx - Social History Current smoker - smoking cessation education provided: No Alcohol: None - Home Medications Home Medications: Ambulatory Orders Medication Instructions Recorded metFORMIN [glucOPHAGE] 500 mg PO BID 04/05/17 oxyCODONE/Acetaminophen [Percocet 1 tab PO Q6H PRN 04/21/17 5/325 mg Tab] - Allergies Allergies/Adverse Reactions: Allergies Allergy/AdvReac Type Severity Reaction Status Date / Time No Known Allergies Allergy Verified 04/21/17 14:07 Review of Systems ROS Statement: Except As Marked, All Systems Reviewed And Found Negative Constitutional: Positive for: Fever Musculoskeletal: Positive for: Foot Pain (right foot) Physical Exam - Physical Exam Appears: Positive for: Well, Non-toxic Head Exam: Positive for: ATRAUMATIC Skin: Positive for: Normal Color, Warm, Dry Neck: Positive for: Normal Cardiovascular/Chest: Positive for: Regular Rate, Rhythm Respiratory: Positive for: Normal Breath Sounds Gastrointestinal/Abdominal: Positive for: Normal Exam Extremity: Positive for: Normal ROM, Other (r ankle incision site to righ ankle - medial malleoulus and posterior to lateral malleolus. both with purulent drainage noted and dehiscence of wound. +Dp. ) - Laboratory Results Result Diagrams: 04/25/17 05:30 04/25/17 05:30 - ECG O2 Sat by Pulse Oximetry: 98 (RA) Pulse Ox Interpretation: Normal Medical Decision Making Medical Decision Making: Time: 15:56 Initial Plan: --CMP --CBC --Percocet 5/325mg --Blood Culture --X-ray --Reevaluation Time: 17:43 FINDINGS: BONES: There is no acute displaced fracture or bone destruction. Bone alignment is normal. There is a prominent plantar calcaneal spur. 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 SOFT TISSUES: There is severe soft tissue swelling in the dorsal forefoot. OTHER FINDINGS: Status post ORIF in distal tibia and fibula IMPRESSION: Severe soft tissue swelling in the dorsal forefoot. No acute displaced fracture or bone destruction. pt to be admitted to family [facility]. resident aware. pt given iv abx. Documented by Johnathan Clarke acting as a scribe for Bibiana Oneill MD. All medical record entries made by the Scribe were at my direction and personally dictated by me. I have reviewed the chart and agree that the record accurately reflects my personal performance of the history, physical exam, medical decision making, and the department course for this patient. I have also personally directed, reviewed, and agree with the discharge instructions and disposition. Disposition - Clinical Impression Clinical Impression: Wound infection after surgery - Patient ED Disposition Is Patient to be Admitted: No Counseled Patient/Family Regarding: Studies Performed, Diagnosis, Need For Followup - Disposition Disposition: Routine/Home Disposition Time: 17:00 Condition: IMPROVED
[2017-04-21] MEDS ORDERED: Piperacillin/Tazobact 4.5 GM in Sodium Chloride 0.9% 100 ML IVPB STA (17:51)
[2017-04-21 17:52] LABS: ALB/GLOB RATIO 0.9 (1.0-2.1); ALBUMIN 4.1 g/dL (3.5-5.0); ALT/SGPT 48 U/L (9-52); AST/SGOT 54 U/L (14-36); BLOOD UREA NITROGEN 13 mg/dl (7-17); CALCIUM 9.9 mg/dL (8.4-10.2); GFR AFRICAN-AMERICAN > 60; GFR NON-AFRICAN AMERICAN > 60
--- NOTE | 2017-04-21 19:14 | CP.PCM.HP ---
History of Present Illness - History of Present Illness History of Present Illness: 47 yo ,f, PMhx/o DM , s/p Right Ankle fracture and right ankle orif 04/07/17 who presents to ED c/o right lateral ankle pain started 3 days ago, intermittent, 7/ 10 intensity , alleviated with Percocet, associated with swelling and some serosanguinous discharged from the surgical wound. . She reports had fever 7 days ago only 1 episode. . She denies fever today, paresthesia, uncontrolled ankle pain, chest pain, SOB, n,v,abd pain, diarrhea, dysuria. Last visit to podiatry clinic 7 days ago. She reports that after she stopped taking oral antibiotics, she restarted with ankle pain again PMD: [facility]: Dr RIVAS PMD: DM , s/p Right Ankle fracture and right ankle orif 04/07/17 Allergies: NKDA Meds: Metformin 1000 mg BID PPsurghx: C section x 3, Cholecystectomy 06/2016, Right ankle fx. B/L foot tendons PShx: No ETOH,rect drugs, cig. Ed Course VS:normal Labs: CBC 11.9>9.8<569 CMP: AST: 54 ALT: 48 Alk Ph: 142 Imaging: Right Food XR: sev soft tissue swelling over dorsal forefoot, no fx or dislocation. XR right ankle: Orif present. Metallic software. Pending final report. Meds: Vanco, Zosyn Present on Admission - Present on Admission Any Indicators Present on Admission: No History of DVT/PE: No History of Uncontrolled Diabetes: No Urinary Catheter: No Review of Systems - Constitutional Constitutional: As Per HPI - Cardiovascular Cardiovascular: As Per HPI - Respiratory Respiratory: As Per HPI - Gastrointestinal Gastrointestinal: absent: Abdominal Pain, Nausea, Vomiting - Musculoskeletal Musculoskeletal: As Per HPI, Joint Swelling Past Patient History - Past Medical History & Family History Past Medical History?: Yes - Past Social History Alcohol: None - CARDIAC Hx Cardiac Disorders: No - PULMONARY Hx Respiratory Disorders: No - NEUROLOGICAL Hx Neurological Disorder: No - HEENT Hx HEENT Problems: No - RENAL Hx Chronic Kidney Disease: Yes - ENDOCRINE/METABOLIC Hx Endocrine Disorders: Yes - HEMATOLOGICAL/ONCOLOGICAL Hx Blood Disorders: No - INTEGUMENTARY Hx Dermatological Problems: No - MUSCULOSKELETAL/RHEUMATOLOGICAL Hx Musculoskeletal Disorders: Yes - GASTROINTESTINAL Hx Gall Bladder Disease: Yes - GENITOURINARY/GYNECOLOGICAL Hx Genitourinary Disorders: No - PSYCHIATRIC Hx Psychophysiologic Disorder: No Hx Substance Use: No - SURGICAL HISTORY Hx Cholecystectomy: Yes - ANESTHESIA Hx Anesthesia: Yes Hx Anesthesia Reactions: No Hx Malignant Hyperthermia: No Meds Allergies/Adverse Reactions: Allergies Allergy/AdvReac Type Severity Reaction Status Date / Time No Known Allergies Allergy Verified 04/21/17 14:07 Physical Exam - Constitutional Appears: Non-toxic, No Acute Distress - Head Exam Head Exam: ATRAUMATIC, NORMOCEPHALIC - Eye Exam Eye Exam: Normal appearance - ENT Exam ENT Exam: Mucous Membranes Moist - Neck Exam Neck exam: Positive for: Normal Inspection - Respiratory Exam Respiratory Exam: Clear to Auscultation Bilateral. absent: Rales, Rhonchi, Wheezes - Cardiovascular Exam Cardiovascular Exam: REGULAR RHYTHM, +S1, +S2 - GI/Abdominal Exam GI & Abdominal Exam: Normal Bowel Sounds, Soft. absent: Guarding, Tenderness - Extremities Exam Extremities exam: Positive for: normal capillary refill Additional comments: right lower extremity covered with bandage below the knee to the toes. Able to move toes tip, no paresthesia, good capillary refill. neurovascular intact. wound cx taken by podiatry. - Back Exam Back exam: NORMAL INSPECTION - Neurological Exam Neurological exam: Alert, Oriented x3 - Psychiatric Exam Psychiatric exam: Normal Affect, Normal Mood - Skin Skin Exam: Intact Results - Vital Signs Recent Vital Signs: Last Vital Signs Temp 97.6 F 04/21/17 18:24 Pulse 82 04/21/17 18:24 Resp 18 04/21/17 18:24 BP 128/74 04/21/17 18:24 Pulse Ox 99 04/21/17 18:10 - Labs Result Diagrams: 04/21/17 16:55 04/21/17 16:55 Labs: Laboratory Results - last 24 hr 04/21/17 04/21/17 16:55 16:55 WBC 11.9 H RBC 3.89 Hgb 9.8 L D Hct 30.7 L MCV 78.9 L MCH 25.3 L MCHC 32.1 L RDW 15.0 H Plt Count 569 H D MPV 7.5 Neut % (Auto) 72.9 Lymph % (Auto) 20.3 [place] % (Auto) 5.1 Eos % (Auto) 0.9 Baso % (Auto) 0.8 Neut # (Auto) 8.7 H Lymph # (Auto) 2.4 [place] # (Auto) 0.6 Eos # (Auto) 0.1 Baso # (Auto) 0.1 Sodium 141 Potassium 4.6 Chloride 97 L Carbon Dioxide 29 Anion Gap 20 BUN 13 Creatinine 0.8 Est GFR ( Amer) > 60 Est GFR (Non-Af Amer) > 60 Random Glucose 109 H Calcium 9.9 Total Bilirubin 0.4 AST 54 H D ALT 48 Alkaline Phosphatase 142 H D Total Protein 8.8 H Albumin 4.1 Globulin 4.6 H Albumin/Globulin Ratio 0.9 L Assessment & Plan - Assessment and Plan (Free Text) Plan: 47 yo ,f, PMhx/o DM , s/p Right Ankle fracture and right ankle orif 04/07/17 admitted for infected wound right ankle 1) Right ankle wound infection -s/p Right Ankle fracture and right ankle orif 04/07/17 -serosanguinous discharged from infection -[facility]/p [facility], wound cx, blood cx, urine cx -c/w [facility] -Podiatry consult appreciated -ID consult suggested -f/u cbc,cmp 2) DM -HgA1c 7.2 03/25/17 -continue home medications Metformin -SSI 3) DVT Prophylaxis Lovenox 40 mg sc daily
[2017-04-21] MEDS ORDERED: Dextrose 50% SYRINGE Inj (50 ml) IV PRN (19:33)
[2017-04-21] MEDS ORDERED: Glucagon Recombinant 1 mg Inj IM PRN (19:33)
--- NOTE | 2017-04-21 22:36 | CP.PCM.CON ---
History of Present Illness - History of Present Illness History of Present Illness: 47 year old female presents to ED from podiatry clinic complaining of pain in her right ankle. Patient is two weeks s/p ORIF for trimalleolar fracture. She presented to clinic today with erythematous, draining, macerated surgical sites and was informed that she should present to the ED for medical evaluation immediately. Patient denies weight bearing to the leg. Patient states that she has had fever and chills over the last few days. Denies any recent N/V/CP/SOB/D/ posterior calf pain or tenderness Review of Systems - Review of Systems Review of Systems: As per HPI Past Patient History - Past Medical History & Family History Past Medical History?: Yes - Past Social History Alcohol: None - CARDIAC Hx Cardiac Disorders: No - PULMONARY Hx Respiratory Disorders: No - NEUROLOGICAL Hx Neurological Disorder: No - HEENT Hx HEENT Problems: No - RENAL Hx Chronic Kidney Disease: Yes - ENDOCRINE/METABOLIC Hx Endocrine Disorders: Yes - HEMATOLOGICAL/ONCOLOGICAL Hx Blood Disorders: No - INTEGUMENTARY Hx Dermatological Problems: No - MUSCULOSKELETAL/RHEUMATOLOGICAL Hx Musculoskeletal Disorders: Yes - GASTROINTESTINAL Hx Gall Bladder Disease: Yes - GENITOURINARY/GYNECOLOGICAL Hx Genitourinary Disorders: No - PSYCHIATRIC Hx Psychophysiologic Disorder: No Hx Substance Use: No - SURGICAL HISTORY Hx Cholecystectomy: Yes - ANESTHESIA Hx Anesthesia: Yes Hx Anesthesia Reactions: No Hx Malignant Hyperthermia: No Meds Allergies/Adverse Reactions: Allergies Allergy/AdvReac Type Severity Reaction Status Date / Time No Known Allergies Allergy Verified 04/21/17 14:07 - Medications Medications: Current Medications Acetaminophen (Tylenol 325mg Tab) 650 mg PO Q6 PRN PRN Reason: Pain, Mild (1-3) Acetaminophen (Tylenol 325mg Tab) 650 mg PO Q6 PRN PRN Reason: Fever >100.4 F Dextrose (Dextrose 50% Inj) 0 ml IV STAT PRN; Protocol PRN Reason: Hypoglycemia Protocol Dextrose (Glutose 15) 0 gm PO ONCE PRN; Protocol PRN Reason: Hypoglycemia Protocol Enoxaparin Sodium (Lovenox) 40 mg SC DAILY PEGGY PRN Reason: Protocol Glucagon (Glucagen Diagnostic Kit) 0 mg IM STAT PRN; Protocol PRN Reason: Hypoglycemia Protocol Piperacillin Sod/Tazobactam (Sod 3.375 gm/ Sodium Chloride) 100 mls @ 100 mls/ hr IVPB Q6 PEGGY PRN Reason: Protocol Vancomycin HCl 1 gm/ Sodium (Chloride) 250 mls @ 166.667 mls/hr IVPB Q12 PEGGY PRN Reason: Protocol Ibuprofen (Motrin Tab) 600 mg PO Q6H PRN PRN Reason: Pain, moderate (4-7) Insulin Human Lispro (Humalog) 0 units SC ACHS PEGGY PRN Reason: Protocol Metformin HCl (Glucophage) 500 mg PO BID PEGGY Oxycodone/Acetaminophen (Percocet 5/325 Mg Tab) 1 tab PO Q4 PRN PRN Reason: Pain, severe (8-10) Stop: 04/24/17 19:23 Physical Exam - Constitutional Appears: Well, Non-toxic, No Acute Distress - Extremities Exam Additional comments: LE focused exam: Vasc: DP/PT pulses fully palpable 2/4 b/l. Skin temperature increased to right ankle surrounding surgical sites. CFT < 3 seconds to all digits. Moderate, nonpitting edema noted to right ankle Neuro: Epicritic and protective sensation grossly intact b/l Derm: Incision site noted to right ankle in two spots, first being medial malleolus and second being posterior to lateral malleolus. Both surgical sites are macerated with seropurulent drainage noted and with evidence of dehiscence. MSK: POP to entirety of right ankle and with any ROM. - Neurological Exam Neurological exam: Alert, Oriented x3 - Psychiatric Exam Psychiatric exam: Normal Affect, Normal Mood Results - Vital Signs Recent Vital Signs: Last Vital Signs Temp 97.6 F 04/21/17 18:24 Pulse 82 04/21/17 18:24 Resp 18 04/21/17 18:24 BP 128/74 04/21/17 18:24 Pulse Ox 99 04/21/17 18:10 - Labs Result Diagrams: 04/21/17 16:55 04/21/17 16:55 Labs: Laboratory Results - last 24 hr 04/21/17 04/21/17 04/21/17 16:55 16:55 22:15 WBC 11.9 H RBC 3.89 Hgb 9.8 L D Hct 30.7 L MCV 78.9 L MCH 25.3 L MCHC 32.1 L RDW 15.0 H Plt Count 569 H D MPV 7.5 Neut % (Auto) 72.9 Lymph % (Auto) 20.3 [place] % (Auto) 5.1 Eos % (Auto) 0.9 Baso % (Auto) 0.8 Neut # (Auto) 8.7 H Lymph # (Auto) 2.4 [place] # (Auto) 0.6 Eos # (Auto) 0.1 Baso # (Auto) 0.1 Sodium 141 Potassium 4.6 Chloride 97 L Carbon Dioxide 29 Anion Gap 20 BUN 13 Creatinine 0.8 Est GFR ( Amer) > 60 Est GFR (Non-Af Amer) > 60 POC Glucose (mg/dL) 147 H Random Glucose 109 H Calcium 9.9 Total Bilirubin 0.4 AST 54 H D ALT 48 Alkaline Phosphatase 142 H D Total Protein 8.8 H Albumin 4.1 Globulin 4.6 H Albumin/Globulin Ratio 0.9 L Assessment & Plan - Assessment and Plan (Free Text) Assessment: 47 year old female seen for infected surgical sites, right ankle two weeks s/p ORIF for trimalleolar fracture Plan: Patient seen and evaluated in ED Plan discussed with attending Dr. Cortez Afebrile, WBC 11.9 Patient started on IV vancomycin and zosyn Culture from surgical sites taken and sent for C and S w/ gram stain No signs of osteomyelitis or hardware malfunction on xray ID consult placed Surgical sites dressed with bacitracin, SDS and posterior splint applied to patient's leg Patient to be admitted to floors Podiatry will continue to follow while patient in house - Date & Time Date: 04/21/17 Time: 20:50
[2017-04-21] MEDS: Insulin Lispro (humaLOG) 100 Units/ml Inj SC SCH (22:56)
[2017-04-21] MEDS: Oxycodone/Acetaminophen 5/325 mg Tab PO PRN (23:03)
[2017-04-21] MEDS: Piperacillin/Tazobact 3.375 GM in Sodium Chloride 0.9% 100 ML IVPB SCH (23:28)
[2017-04-22] MEDS: Piperacillin/Tazobact 3.375 GM in Sodium Chloride 0.9% 100 ML IVPB SCH ×3 (05:18→17:11)
[2017-04-22] MEDS: Insulin Lispro (humaLOG) 100 Units/ml Inj SC SCH ×4 (06:32→22:24)
[2017-04-22 06:37] LABS: BASO # 0.1 K/uL (0.0-0.2); BASO % 0.6 % (0.0-2.0); EOS # 0.2 K/uL (0.0-0.7); EOS % 1.8 % (0.0-4.0); HEMOGLOBIN 9.4 g/dL (12.0-16.0); LYMPH # 3.2 K/uL (1.0-4.3); LYMPH % 34.8 % (20.0-40.0); MEAN CELL VOLUME 78.6 fl (81.0-99.0); MEAN CORPUSCULAR HEMOGLOBIN 26.4 pg (27.0-31.0); MEAN CORPUSCULAR HGB CONC 33.6 g/dL (33.0-37.0); MEAN PLATELET VOLUME 7.1 fl (7.2-11.7); MONO # 0.6 K/uL (0.0-0.8); MONO % 6.5 % (0.0-10.0); NEUT # 5.2 K/uL (1.8-7.0); NEUT % 56.3 % (50.0-75.0); NRBC % 0.1 % (0.0-0.0); RBC 3.55 Mil/uL (3.80-5.20); RED CELL DISTRIBUTION WIDTH 14.7 % (11.5-14.5); WHITE BLOOD COUNT 9.2 K/uL (4.8-10.8)
[2017-04-22] MEDS: Oxycodone/Acetaminophen 5/325 mg Tab PO PRN ×4 (06:46→22:27)
[2017-04-22 06:47] LABS: ALB/GLOB RATIO 0.9 (1.0-2.1); ALBUMIN 3.7 g/dL (3.5-5.0); ALT/SGPT 36 U/L (9-52); AST/SGOT 35 U/L (14-36); BLOOD UREA NITROGEN 14 mg/dl (7-17); CALCIUM 8.9 mg/dL (8.4-10.2); GFR AFRICAN-AMERICAN > 60; GFR NON-AFRICAN AMERICAN > 60
--- NOTE | 2017-04-22 07:14 | CP.PCM.PN ---
Subjective - Date & Time of Evaluation Date of Evaluation: 04/22/17 Time of Evaluation: 07:15 - Subjective Subjective: pt seen and examined at bedside. Resting well. Reported slight pain in her ankle , however, relieved with pain meds. Denies: cp/sob/n/v. Objective - Vital Signs/Intake and Output Vital Signs (last 24 hours): Temp Pulse Resp BP Pulse Ox 98 F 81 18 107/72 95 04/22/17 00:27 04/22/17 00:27 04/22/17 00:27 04/22/17 00:27 04/22/17 00:27 - Medications Medications: Current Medications Acetaminophen (Tylenol 325mg Tab) 650 mg PO Q6 PRN PRN Reason: Pain, Mild (1-3) Acetaminophen (Tylenol 325mg Tab) 650 mg PO Q6 PRN PRN Reason: Fever >100.4 F Dextrose (Dextrose 50% Inj) 0 ml IV STAT PRN; Protocol PRN Reason: Hypoglycemia Protocol Dextrose (Glutose 15) 0 gm PO ONCE PRN; Protocol PRN Reason: Hypoglycemia Protocol Enoxaparin Sodium (Lovenox) 40 mg SC DAILY PEGGY PRN Reason: Protocol Glucagon (Glucagen Diagnostic Kit) 0 mg IM STAT PRN; Protocol PRN Reason: Hypoglycemia Protocol Piperacillin Sod/Tazobactam (Sod 3.375 gm/ Sodium Chloride) 100 mls @ 100 mls/ hr IVPB Q6H PEGGY PRN Reason: Protocol Last Admin: 04/22/17 05:18 Dose: 100 mls/hr Vancomycin HCl 1 gm/ Sodium (Chloride) 250 mls @ 166.667 mls/hr IVPB Q12 PEGGY PRN Reason: Protocol Ibuprofen (Motrin Tab) 600 mg PO Q6H PRN PRN Reason: Pain, moderate (4-7) Insulin Human Lispro (Humalog) 0 units SC ACHS PEGGY PRN Reason: Protocol Last Admin: 04/22/17 06:32 Dose: Not Given Metformin HCl (Glucophage) 500 mg PO BID PEGGY Oxycodone/Acetaminophen (Percocet 5/325 Mg Tab) 1 tab PO Q4 PRN PRN Reason: Pain, severe (8-10) Stop: 04/24/17 19:23 Last Admin: 04/22/17 06:46 Dose: 1 tab - Labs Labs: 04/22/17 06:00 04/22/17 06:00 - Constitutional Appears: Well, No Acute Distress - Eye Exam Eye Exam: EOMI - Neck Exam Neck Exam: Full ROM - Respiratory Exam Respiratory Exam: Clear to Ausculation Bilateral, NORMAL BREATHING PATTERN. absent: Wheezes - Cardiovascular Exam Cardiovascular Exam: REGULAR RHYTHM, +S1, +S2 - GI/Abdominal Exam GI & Abdominal Exam: Soft, Normal Bowel Sounds. absent: Tenderness - Extremities Exam Extremities Exam: absent: Calf Tenderness Additional comments: R lower extremity wrapped below the knee. Managed by podiatry. Pt able to move toes and experience normal sensation. - Back Exam Back Exam: absent: CVA tenderness (L), CVA tenderness (R) - Neurological Exam Neurological Exam: Alert, Awake, CN II-XII Intact, Oriented x3 - Psychiatric Exam Psychiatric exam: Normal Affect, Normal Mood Assessment and Plan - Assessment and Plan (Free Text) Plan: 47 yo f, PMhx/o DM , s/p Right Ankle fracture and right ankle orif 04/07/17 admitted for infected wound of right ankle 1) Right ankle wound infection -s/p Right Ankle fracture and right ankle orif 04/07/17 -serosanguinous discharged from infection -[facility], wound cx, blood cx, urine cx -c/w [facility] -Podiatry: surgery site cleaned and dressed. C/w abx -Pain: acetaminophen 650 mg po q6 -ID consulted. -f/u cbc,cmp 3) Anemia -h/h: 9.4/27.9 -Multifactorial: blood loss 2/2 recent surgery of R ankle; serosanguinous discharge. -LMP 03/2016: dines menses/vaginal bleed 4) DM -HgA1c 7.2 03/25/17 -continue home medications Metformin 500 mg BID -SSI 5) DVT Prophylaxis Lovenox 40 mg sc daily
--- NOTE | 2017-04-22 07:30 | CP.PCM.PN ---
Subjective - Date & Time of Evaluation Date of Evaluation: 04/22/17 Time of Evaluation: 07:50 - Subjective Subjective: 47 year old female patient was seen and evaluated at bedside 2 weeks s/p ORIF for trimalleolar fracture. Patient is AAOx3 and is in NAD. Patient appears to be resting comfortably at the time of the visit. Patient denies of any acute overnight events. Reports mild pain but is managing it well with the pain medications. Patient denies of any recent F/N/V/C/SOB/CP/headache/chest pain. Patient denies of any other pedal complains at this time. Objective - Vital Signs/Intake and Output Vital Signs (last 24 hours): Temp Pulse Resp BP Pulse Ox 98 F 81 18 107/72 95 04/22/17 00:27 04/22/17 00:27 04/22/17 00:27 04/22/17 00:27 04/22/17 00:27 - Medications Medications: Current Medications Acetaminophen (Tylenol 325mg Tab) 650 mg PO Q6 PRN PRN Reason: Pain, Mild (1-3) Acetaminophen (Tylenol 325mg Tab) 650 mg PO Q6 PRN PRN Reason: Fever >100.4 F Dextrose (Dextrose 50% Inj) 0 ml IV STAT PRN; Protocol PRN Reason: Hypoglycemia Protocol Dextrose (Glutose 15) 0 gm PO ONCE PRN; Protocol PRN Reason: Hypoglycemia Protocol Enoxaparin Sodium (Lovenox) 40 mg SC DAILY PEGGY PRN Reason: Protocol Glucagon (Glucagen Diagnostic Kit) 0 mg IM STAT PRN; Protocol PRN Reason: Hypoglycemia Protocol Piperacillin Sod/Tazobactam (Sod 3.375 gm/ Sodium Chloride) 100 mls @ 100 mls/ hr IVPB Q6H PEGGY PRN Reason: Protocol Last Admin: 04/22/17 05:18 Dose: 100 mls/hr Vancomycin HCl 1 gm/ Sodium (Chloride) 250 mls @ 166.667 mls/hr IVPB Q12 PEGGY PRN Reason: Protocol Ibuprofen (Motrin Tab) 600 mg PO Q6H PRN PRN Reason: Pain, moderate (4-7) Insulin Human Lispro (Humalog) 0 units SC ACHS PEGGY PRN Reason: Protocol Last Admin: 04/22/17 06:32 Dose: Not Given Metformin HCl (Glucophage) 500 mg PO BID PEGGY Oxycodone/Acetaminophen (Percocet 5/325 Mg Tab) 1 tab PO Q4 PRN PRN Reason: Pain, severe (8-10) Stop: 04/24/17 19:23 Last Admin: 04/22/17 06:46 Dose: 1 tab - Labs Labs: 04/22/17 06:00 04/22/17 06:00 - Constitutional Appears: Well, Non-toxic, No Acute Distress - Extremities Exam Additional comments: LE focused exam: Vasc: DP/PT pulses fully palpable 2/4 b/l. Skin temperature increased to right ankle surrounding surgical sites. CFT < 3 seconds to all digits. Moderate, nonpitting edema noted to right ankle Derm: Incision site noted to right ankle in two locations, first being medial malleolus and second being posterior to lateral malleolus. Both surgical sites are macerated with seropurulent drainage noted and with evidence of dehiscence - more serous drainage today than purulent, no malodor, no periwound erythema Neuro: Epicritic and protective sensation grossly intact b/l MSK: POP to entirety of right ankle and with any ROM. - Neurological Exam Neurological Exam: Alert, Awake, Oriented x3 - Psychiatric Exam Psychiatric exam: Normal Affect, Normal Mood Assessment and Plan - Assessment and Plan (Free Text) Assessment: 47 year old female evaluated for infected surgical sites, right ankle two weeks s/p ORIF for trimalleolar fracture Plan: Patient seen and evaluated Plan discussed with attending Dr. Cortez Afebrile, WBC 9.2 Culture from surgical sites taken and sent for C and S w/ gram stain - pending Continue IV abx - vancomycin and zosyn ID consult placed No signs of osteomyelitis or hardware malfunction on xray Surgical sites cleaned with saline and dressed with betadine soaked adaptic, 4x4 , ABD, Kerlix and and posterior splint applied to patient's leg Patient to remain NWB to the RLE using crutches Podiatry will continue to follow while patient in house
[2017-04-22] MEDS ORDERED: Povidone Iodine Topical 10% Sol ONE (08:13)
[2017-04-22] MEDS: Enoxaparin 40 mg Syringe SC SCH (08:55)
[2017-04-22 17:39] LABS: IRON 32 ug/dL (37-170)
[2017-04-22 17:53] LABS: % IRON SATURATION 17 % (20-55); TOTAL IRON BINDING CAPACITY 192 ug/dL (250-450)
--- NOTE | 2017-04-22 19:18 | CP.PCM.CON ---
History of Present Illness - History of Present Illness History of Present Illness: admitted for infected ankle wound s/p ORIF rx in progress Past Patient History - Past Medical History & Family History Past Medical History?: Yes - Past Social History Alcohol: None - CARDIAC Hx Cardiac Disorders: No - PULMONARY Hx Respiratory Disorders: No - NEUROLOGICAL Hx Neurological Disorder: No - HEENT Hx HEENT Problems: No - RENAL Hx Chronic Kidney Disease: Yes - ENDOCRINE/METABOLIC Hx Endocrine Disorders: Yes - HEMATOLOGICAL/ONCOLOGICAL Hx Blood Disorders: No - INTEGUMENTARY Hx Dermatological Problems: No - MUSCULOSKELETAL/RHEUMATOLOGICAL Hx Musculoskeletal Disorders: Yes - GASTROINTESTINAL Hx Gall Bladder Disease: Yes - GENITOURINARY/GYNECOLOGICAL Hx Genitourinary Disorders: No - PSYCHIATRIC Hx Psychophysiologic Disorder: No Hx Substance Use: No - SURGICAL HISTORY Hx Cholecystectomy: Yes - ANESTHESIA Hx Anesthesia: Yes Hx Anesthesia Reactions: No Hx Malignant Hyperthermia: No Meds Allergies/Adverse Reactions: Allergies Allergy/AdvReac Type Severity Reaction Status Date / Time No Known Allergies Allergy Verified 04/21/17 14:07 - Medications Medications: Current Medications Acetaminophen (Tylenol 325mg Tab) 650 mg PO Q6 PRN PRN Reason: Pain, Mild (1-3) Acetaminophen (Tylenol 325mg Tab) 650 mg PO Q6 PRN PRN Reason: Fever >100.4 F Dextrose (Dextrose 50% Inj) 0 ml IV STAT PRN; Protocol PRN Reason: Hypoglycemia Protocol Dextrose (Glutose 15) 0 gm PO ONCE PRN; Protocol PRN Reason: Hypoglycemia Protocol Enoxaparin Sodium (Lovenox) 40 mg SC DAILY PEGGY PRN Reason: Protocol Last Admin: 04/22/17 08:55 Dose: 40 mg Glucagon (Glucagen Diagnostic Kit) 0 mg IM STAT PRN; Protocol PRN Reason: Hypoglycemia Protocol Piperacillin Sod/Tazobactam (Sod 3.375 gm/ Sodium Chloride) 100 mls @ 100 mls/ hr IVPB Q6H PEGGY PRN Reason: Protocol Last Admin: 04/22/17 17:11 Dose: 100 mls/hr Vancomycin HCl 1 gm/ Sodium (Chloride) 250 mls @ 166.667 mls/hr IVPB Q12 PEGGY PRN Reason: Protocol Last Admin: 04/22/17 08:58 Dose: 166.667 mls/hr Ibuprofen (Motrin Tab) 600 mg PO Q6H PRN PRN Reason: Pain, moderate (4-7) Insulin Human Lispro (Humalog) 0 units SC ACHS PEGGY PRN Reason: Protocol Last Admin: 04/22/17 16:09 Dose: Not Given Metformin HCl (Glucophage) 500 mg PO BID [facility] Last Admin: 04/22/17 16:05 Dose: 500 mg Oxycodone/Acetaminophen (Percocet 5/325 Mg Tab) 1 tab PO Q4 PRN PRN Reason: Pain, severe (8-10) Stop: 04/24/17 19:23 Last Admin: 04/22/17 17:19 Dose: 1 tab Results - Vital Signs Recent Vital Signs: Last Vital Signs Temp 98.4 F 04/22/17 17:04 Pulse 87 04/22/17 17:04 Resp 20 04/22/17 17:04 BP 108/73 04/22/17 17:04 Pulse Ox 95 04/22/17 17:04 - Labs Result Diagrams: 04/22/17 06:00 04/22/17 06:00 Labs: Laboratory Results - last 24 hr 04/21/17 04/21/17 04/22/17 21:26 22:15 05:28 WBC RBC Hgb Hct MCV MCH MCHC RDW Plt Count MPV Neut % (Auto) Lymph % (Auto) [place] % (Auto) Eos % (Auto) Baso % (Auto) Neut # (Auto) Lymph # (Auto) [place] # (Auto) Eos # (Auto) Baso # (Auto) Sodium Potassium Chloride Carbon Dioxide Anion Gap BUN Creatinine Est GFR ( Amer) Est GFR (Non-Af Amer) POC Glucose (mg/dL) 154 H 147 H 96 Random Glucose Calcium Iron TIBC % Saturation Ferritin Total Bilirubin AST ALT Alkaline Phosphatase Total Protein Albumin Globulin Albumin/Globulin Ratio Triglycerides Cholesterol LDL Cholesterol Direct HDL Cholesterol Vitamin B12 04/22/17 04/22/17 04/22/17 06:00 06:00 11:24 WBC 9.2 RBC 3.55 L Hgb 9.4 L Hct 27.9 L MCV 78.6 L MCH 26.4 L MCHC 33.6 RDW 14.7 H Plt Count 529 H MPV 7.1 L Neut % (Auto) 56.3 Lymph % (Auto) 34.8 [place] % (Auto) 6.5 Eos % (Auto) 1.8 Baso % (Auto) 0.6 Neut # (Auto) 5.2 Lymph # (Auto) 3.2 [place] # (Auto) 0.6 Eos # (Auto) 0.2 Baso # (Auto) 0.1 Sodium 142 Potassium 4.2 Chloride 102 Carbon Dioxide 28 Anion Gap 16 BUN 14 Creatinine 0.8 Est GFR ( Amer) > 60 Est GFR (Non-Af Amer) > 60 POC Glucose (mg/dL) 107 Random Glucose 104 Calcium 8.9 Iron TIBC % Saturation Ferritin Total Bilirubin 0.4 AST 35 ALT 36 Alkaline Phosphatase 119 Total Protein 7.5 Albumin 3.7 Globulin 3.9 Albumin/Globulin Ratio 0.9 L Triglycerides Cholesterol LDL Cholesterol Direct HDL Cholesterol Vitamin B12 04/22/17 04/22/17 04/22/17 14:20 14:20 15:56 WBC RBC Hgb Hct MCV MCH MCHC RDW Plt Count MPV Neut % (Auto) Lymph % (Auto) [place] % (Auto) Eos % (Auto) Baso % (Auto) Neut # (Auto) Lymph # (Auto) [place] # (Auto) Eos # (Auto) Baso # (Auto) Sodium Potassium Chloride Carbon Dioxide Anion Gap BUN Creatinine Est GFR ( Amer) Est GFR (Non-Af Amer) POC Glucose (mg/dL) 93 Random Glucose Calcium Iron 32 L TIBC 192 L % Saturation 17 L Ferritin 129.0 Total Bilirubin AST ALT Alkaline Phosphatase Total Protein Albumin Globulin Albumin/Globulin Ratio Triglycerides 247 H D Cholesterol 193 LDL Cholesterol Direct 112 HDL Cholesterol 29 L Vitamin B12 588
[2017-04-22 19:24] LABS: SQUAMOUS EPITHIAL 25 /hpf (0-5); URINE BACTERIA OCC (<OCC); URINE BILIRUBIN NEGATIVE (NEGATIVE); URINE BLOOD NEGATIVE (NEGATIVE); URINE CLARITY CLOUDY (Clear); URINE COLOR YELLOW (YELLOW); URINE GLUCOSE (UA) NEG (Normal); URINE LEUKOCYTE ESTERASE NEG Leu/uL (Negative); URINE NITRATE NEGATIVE (NEGATIVE); URINE PROTEIN NEGATIVE (NEGATIVE); URINE UROBILINOGEN 0.2-1.0 mg/dL (0.2-1.0)
[2017-04-23] MEDS: Piperacillin/Tazobact 3.375 GM in Sodium Chloride 0.9% 100 ML IVPB SCH ×4 (00:23→17:25)
[2017-04-23] MEDS: Oxycodone/Acetaminophen 5/325 mg Tab PO PRN ×4 (05:30→20:02)
--- NOTE | 2017-04-23 07:50 | CP.PCM.PN ---
Subjective - Date & Time of Evaluation Date of Evaluation: 04/23/17 Time of Evaluation: 07:46 - Subjective Subjective: Progress note - Dr. Cortez 47 year old female patient was seen and evaluated at bedside 2 weeks s/p ORIF for trimalleolar fracture. Patient is AAOx3 and is in NAD. Patient appears to be resting comfortably at the time of the visit. Patient denies of any acute overnight events. Patient states that she slept well yesterday. Denies of any acute overnight pain and reports that she manages it well with the medication. Patient denies of any recent F/N/V/C/SOB/CP/headache/chest pain. Patient denies of any other pedal complains at this time. Objective - Vital Signs/Intake and Output Vital Signs (last 24 hours): Temp Pulse Resp BP Pulse Ox 99 F 86 19 102/65 98 04/23/17 00:45 04/23/17 00:45 04/23/17 00:45 04/23/17 00:45 04/23/17 00:45 - Medications Medications: Current Medications Acetaminophen (Tylenol 325mg Tab) 650 mg PO Q6 PRN PRN Reason: Pain, Mild (1-3) Acetaminophen (Tylenol 325mg Tab) 650 mg PO Q6 PRN PRN Reason: Fever >100.4 F Dextrose (Dextrose 50% Inj) 0 ml IV STAT PRN; Protocol PRN Reason: Hypoglycemia Protocol Dextrose (Glutose 15) 0 gm PO ONCE PRN; Protocol PRN Reason: Hypoglycemia Protocol Enoxaparin Sodium (Lovenox) 40 mg SC DAILY PEGGY PRN Reason: Protocol Last Admin: 04/22/17 08:55 Dose: 40 mg Glucagon (Glucagen Diagnostic Kit) 0 mg IM STAT PRN; Protocol PRN Reason: Hypoglycemia Protocol Piperacillin Sod/Tazobactam (Sod 3.375 gm/ Sodium Chloride) 100 mls @ 100 mls/ hr IVPB Q6H PEGGY PRN Reason: Protocol Last Admin: 04/23/17 05:24 Dose: 100 mls/hr Vancomycin HCl 1 gm/ Sodium (Chloride) 250 mls @ 166.667 mls/hr IVPB Q12 PEGGY PRN Reason: Protocol Last Admin: 04/22/17 21:23 Dose: 166.667 mls/hr Ibuprofen (Motrin Tab) 600 mg PO Q6H PRN PRN Reason: Pain, moderate (4-7) Insulin Human Lispro (Humalog) 0 units SC ACHS PEGGY PRN Reason: Protocol Last Admin: 04/22/17 22:24 Dose: Not Given Metformin HCl (Glucophage) 500 mg PO BID [facility] Last Admin: 04/22/17 16:05 Dose: 500 mg Oxycodone/Acetaminophen (Percocet 5/325 Mg Tab) 1 tab PO Q4 PRN PRN Reason: Pain, severe (8-10) Stop: 04/24/17 19:23 Last Admin: 04/23/17 05:30 Dose: 1 tab - Labs Labs: 04/22/17 06:00 04/22/17 06:00 - Constitutional Appears: Well, Non-toxic, No Acute Distress - Extremities Exam Additional comments: LE focused exam: Vasc: DP/PT pulses fully palpable 2/4 b/l. Skin temperature increased to right ankle surrounding surgical sites. CFT < 3 seconds to all digits. Moderate, nonpitting edema noted to right ankle - edema on the leg appears to be resolving Derm: Incision site noted to right ankle in two locations, first being medial malleolus and second being posterior to lateral malleolus. Both surgical sites are macerated with sero-sanguineous drainage noted and with evidence of dehiscence - maceration has decreased since yesterday, the dehiscence is seen more on the lateral incision on the middle aspect; medial incision appears fairly intact, no malodor, no periwound erythema Neuro: Epicritic and protective sensation grossly intact b/l MSK: POP to entirety of right ankle and with any ROM. - Neurological Exam Neurological Exam: Alert, Awake - Psychiatric Exam Psychiatric exam: Normal Affect, Normal Mood Assessment and Plan - Assessment and Plan (Free Text) Assessment: 47 year old female evaluated for infected surgical sites, right ankle two weeks s/p ORIF for trimalleolar fracture Plan: Patient seen and evaluated Plan discussed with attending Dr. Cortez Afebrile, WBC 9.2 as of yesterday Culture from surgical sites taken and sent for C and S w/ gram stain - no growth yet; final result pending Continue IV abx - vancomycin and zosyn ID consult placed - Recommendations from Dr. Hanley appreciated No signs of osteomyelitis or hardware malfunction on xray Surgical sites cleaned with saline and dressed with betadine soaked adaptic, 4x4 , ABD, Kerlix and and posterior splint applied to patient's leg Patient to remain NWB to the RLE using crutches Podiatry will continue to follow while patient in house
[2017-04-23] MEDS: Enoxaparin 40 mg Syringe SC SCH (09:00)
[2017-04-23] MEDS: Insulin Lispro (humaLOG) 100 Units/ml Inj SC SCH ×4 (09:01→21:30)
--- NOTE | 2017-04-23 12:37 | CP.PCM.CON ---
History of Present Illness - History of Present Illness History of Present Illness: admitted from clinic for increased redness atr surgical site d/p ORIF for trimalleolar fx on 04/07/17 at [facility] started on empiric antibiotics pmh dm htn obesity Review of Systems - Review of Systems All systems: reviewed and no additional remarkable complaints except - Constitutional Constitutional: As Per HPI - EENT Eyes: absent: As Per HPI, Blind Spots, Blurred Vision, Change in Vision, Decreased Night Vision, Diplopia, Discharge, Dry Eye, Exophthalmos, Floaters, Irritation, Itchy Eyes, Loss of Peripheral Vision, Pain, Photophobia, Requires Corrective Lenses, Sees Flashes, Spots in Vision, Tunnel Vision, Other Visual Disturbances, Loss of Vision, Other Ears: absent: As Per HPI, Decreased Hearing, Ear Discharge, Ear Pain, Tinnitus, Abnormal Hearing, Disequilibrium, Dizziness, Other Nose/Mouth/Throat: absent: As Per HPI, Epistaxis, Nasal Congestion, Nasal Discharge, Nasal Obstruction, Nasal Trauma, Nose Pain, Post Nasal Drip, Sinus Pain, Sinus Pressure, Bleeding Gums, Change in Voice, Dental Pain, Dry Mouth, Dysphagia, Halitosis, Hoarsness, Lip Swelling, Mouth Lesions, Mouth Pain, Odynophagia, Sore Throat, Throat Swelling, Tongue Swelling, Facial Pain, Neck Pain, Neck Mass, Other - Breasts Breasts: absent: As Per HPI, Change in Shape, Mass, Pain, Nipple Discharge, Nipple Inversion, Skin Changes, Swelling, Other - Cardiovascular Cardiovascular: absent: As Per HPI, Acrocyanosis, Chest Pain, Chest Pain at Rest , Chest Pain with Activity, Claudication, Diaphoresis, Dyspnea, Dyspnea on Exertion, Edema, Irregular Heart Rhythm, Pain Radiating to Arm/Neck/Jaw, Leg Edema, Leg Ulcers, Lightheadedness, Orthopnea, Palpitations, Paroxysmal Nocturnal Dyspnea, Pedal Edema, Radiating Pain, Rapid Heart Rate, Slow Heart Rate, Syncope, Other - Respiratory Respiratory: absent: As Per HPI, Cough, Dyspnea, Hemoptysis, Dyspnea on Exertion , Wheezing, Snoring, Stridor, Pain on Inspiration, Chest Congestion, Excessive Mucous Production, Change in Mucous Color, Pain with Coughing, Other - Gastrointestinal Gastrointestinal: absent: As Per HPI, Abdominal Pain, Belching, Bloating, Change in Bowel Habits, Change in Stool Character, Coffee Ground Emesis, Constipation, Cramping, Diarrhea, Dyspepsia, Dysphagia, Early Satiety, Excessive Flatus, Fecal Incontinence, Heartburn, Hematemesis, Hematochezia, Loose Stools, Melena, Nausea, Odynophagia, Temesmus, Vomiting, Other - Genitourinary Genitourinary: absent: As Per HPI, Change in Urinary Stream, Difficulty Urinating, Dysuria, Flank Pain, Hematuria, Pyuria, Nocturia, Urinary Incontinence, Urinary Frequency, Urinary Hesitance, Urinary Urgency, Voiding Freq/Small Amts, Freq UTI, Hx Renal/Bladder Calculi, Hx /Renal Surgery, Bladder Distension, Other - Reproductive: Female Reproductive:Female: absent: As Per HPI, Amenorrhea, Amenorrhea/ Control, Currently Menstual, Cycle <21 Days, Cycle >35 Days, Cycle Variable, Menses 1-7 Days, Menses >/= 8 Days, Menses Variable, Cycle > 4 Weeks Between, No Menses for 6 Months, Heavy Menses, Light Menses, Normal Menses, Spotting Between Cycles , S/P Hysterectomy, Menopausal, Post Menopausal, Premenarche, Abnormal Vaginal Bleeding, Dysmenorrhea, Dyspareunia, Genital Lesions, Genital Pruritis, Pelvic Pain, Prolapse Symptoms, Sexual Dysfunction, Vaginal Discharge, Vaginal Dryness , Vaginal Odor, Vaginal Pruritis, Other - Menstruation Menstruation: absent: As Per HPI, Amenorrhea, Amenorrhea/ Control, Currently Menstual, Cycle <21 Days, Cycle >35 Days, Cycle Variable, Menses 1-7 Days, Menses >/= 8 Days, Menses Variable, Cycle > 4 Weeks Between, No Menses for 6 Months, Heavy Menses, Light Menses, Normal Menses, Spotting Between Cycles , S/P Hysterectomy, Menopausal, Post Menopausal, Premenarche, Abnormal Vaginal Bleeding, Dysmenorrhea, Other - Musculoskeletal Musculoskeletal: As Per HPI - Integumentary Integumentary: As Per HPI - Neurological Neurological: absent: As Per HPI, Abnormal Gait, Abnormal Hearing, Abnormal Movements, Abnormal Speech, Behavioral Changes, Burning Sensations, Confusion, Convulsions, Disequilibrium, Dizziness, Numbness, Focal Weakness, Frequent Falls , Headaches, Lack of Coordination, Loss of Vision, Memory Loss, Paresthesias, Radicular Pain, Restless Legs, Sensory Deficit, Syncope, Tingling, Tremor, Vertigo, Weakness, Other Visual Disturbances, Other - Psychiatric Psychiatric: absent: As Per HPI, Abnormal Sleep Pattern, Anhedonia, Anxiety, Auditory Hallucinations, Behavioral Changes, Change in Appetite, Change in Libido, Confusion, Depression, Difficulty Concentrating, Hallucinations, Homicidal Ideation, Hopelessness, Irritability, Memory Loss, Mood Swings, Panic Attacks, Paranoia, Suicidal Ideation, Visual Hallucinations, Tactile Hallucinations, Other Past Patient History - Past Medical History & Family History Past Medical History?: Yes - Past Social History Alcohol: None - CARDIAC Hx Cardiac Disorders: No - PULMONARY Hx Respiratory Disorders: No - NEUROLOGICAL Hx Neurological Disorder: No - HEENT Hx HEENT Problems: No - RENAL Hx Chronic Kidney Disease: Yes - ENDOCRINE/METABOLIC Hx Endocrine Disorders: Yes - HEMATOLOGICAL/ONCOLOGICAL Hx Blood Disorders: No - INTEGUMENTARY Hx Dermatological Problems: No - MUSCULOSKELETAL/RHEUMATOLOGICAL Hx Musculoskeletal Disorders: Yes - GASTROINTESTINAL Hx Gall Bladder Disease: Yes - GENITOURINARY/GYNECOLOGICAL Hx Genitourinary Disorders: No - PSYCHIATRIC Hx Psychophysiologic Disorder: No Hx Substance Use: No - SURGICAL HISTORY Hx Cholecystectomy: Yes - ANESTHESIA Hx Anesthesia: Yes Hx Anesthesia Reactions: No Hx Malignant Hyperthermia: No Meds Allergies/Adverse Reactions: Allergies Allergy/AdvReac Type Severity Reaction Status Date / Time No Known Allergies Allergy Verified 04/21/17 14:07 - Medications Medications: Current Medications Acetaminophen (Tylenol 325mg Tab) 650 mg PO Q6 PRN PRN Reason: Pain, Mild (1-3) Acetaminophen (Tylenol 325mg Tab) 650 mg PO Q6 PRN PRN Reason: Fever >100.4 F Dextrose (Dextrose 50% Inj) 0 ml IV STAT PRN; Protocol PRN Reason: Hypoglycemia Protocol Dextrose (Glutose 15) 0 gm PO ONCE PRN; Protocol PRN Reason: Hypoglycemia Protocol Enoxaparin Sodium (Lovenox) 40 mg SC DAILY PEGGY PRN Reason: Protocol Last Admin: 04/23/17 09:00 Dose: 40 mg Glucagon (Glucagen Diagnostic Kit) 0 mg IM STAT PRN; Protocol PRN Reason: Hypoglycemia Protocol Piperacillin Sod/Tazobactam (Sod 3.375 gm/ Sodium Chloride) 100 mls @ 100 mls/ hr IVPB Q6H PEGGY PRN Reason: Protocol Last Admin: 04/23/17 05:24 Dose: 100 mls/hr Vancomycin HCl 1 gm/ Sodium (Chloride) 250 mls @ 166.667 mls/hr IVPB Q12 PEGGY PRN Reason: Protocol Last Admin: 04/23/17 09:12 Dose: 166.667 mls/hr Ibuprofen (Motrin Tab) 600 mg PO Q6H PRN PRN Reason: Pain, moderate (4-7) Insulin Human Lispro (Humalog) 0 units SC ACHS PEGGY PRN Reason: Protocol Last Admin: 04/23/17 09:01 Dose: Not Given Metformin HCl (Glucophage) 500 mg PO BID [facility] Last Admin: 04/23/17 09:10 Dose: 500 mg Oxycodone/Acetaminophen (Percocet 5/325 Mg Tab) 1 tab PO Q4 PRN PRN Reason: Pain, severe (8-10) Stop: 04/24/17 19:23 Last Admin: 04/23/17 10:23 Dose: 1 tab Physical Exam - Constitutional Appears: Chronically Ill - Head Exam Head Exam: NORMAL INSPECTION - Eye Exam Eye Exam: PERRL - ENT Exam ENT Exam: Mucous Membranes Dry - Neck Exam Neck exam: Negative for: Lymphadenopathy - Respiratory Exam Respiratory Exam: Decreased Breath Sounds - Cardiovascular Exam Cardiovascular Exam: REGULAR RHYTHM - GI/Abdominal Exam GI & Abdominal Exam: Diminished Bowel Sounds, Soft - Rectal Exam Rectal Exam: Deferred - Exam Exam: NORMAL INSPECTION - Extremities Exam Extremities exam: Positive for: pedal edema, pedal pulses present. Negative for : calf tenderness Additional comments: LE focused exam: Vasc: DP/PT pulses fully palpable 2/4 b/l. Skin temperature increased to right ankle surrounding surgical sites. CFT < 3 seconds to all digits. Moderate, nonpitting edema noted to right ankle - edema on the leg appears to be resolving Derm: Incision site noted to right ankle in two locations, first being medial malleolus and second being posterior to lateral malleolus. Both surgical sites are macerated with sero-sanguineous drainage noted and with evidence of dehiscence - maceration has decreased since yesterday, the dehiscence is seen more on the lateral incision on the middle aspect; medial incision appears fairly intact, no malodor, no periwound erythema Neuro: Epicritic and protective sensation grossly intact b/l - Back Exam Back exam: absent: CVA tenderness (L), CVA tenderness (R) - Neurological Exam Neurological exam: Alert, CN II-XII Intact, Oriented x3, Reflexes Normal - Psychiatric Exam Psychiatric exam: Normal Mood - Skin Skin Exam: Dry Results - Vital Signs Recent Vital Signs: Last Vital Signs Temp 98.4 F 04/23/17 08:30 Pulse 78 04/23/17 08:30 Resp 20 04/23/17 08:30 BP 102/62 04/23/17 08:30 Pulse Ox 96 04/23/17 08:30 - Labs Result Diagrams: 04/22/17 06:00 04/22/17 06:00 Labs: Laboratory Results - last 24 hr 04/22/17 04/22/17 04/22/17 14:20 14:20 15:56 POC Glucose (mg/dL) 93 Iron 32 L TIBC 192 L % Saturation 17 L Ferritin 129.0 Triglycerides 247 H D Cholesterol 193 LDL Cholesterol Direct 112 HDL Cholesterol 29 L Vitamin B12 588 Urine Color Urine Clarity Urine pH Ur Specific [place] Urine Protein Urine Glucose (UA) Urine Ketones Urine Blood Urine Nitrate Urine Bilirubin Urine Urobilinogen Ur Leukocyte Esterase Urine RBC (Auto) Urine Microscopic WBC Ur Squamous Epith Cells Urine Bacteria Stool Occult Blood 04/22/17 04/22/17 04/22/17 18:40 18:40 21:37 POC Glucose (mg/dL) 76 Iron TIBC % Saturation Ferritin Triglycerides Cholesterol LDL Cholesterol Direct HDL Cholesterol Vitamin B12 Urine Color Yellow Urine Clarity Cloudy Urine pH 6.0 Ur Specific [place] 1.016 Urine Protein Negative Urine Glucose (UA) Neg Urine Ketones Negative Urine Blood Negative Urine Nitrate Negative Urine Bilirubin Negative Urine Urobilinogen 0.2-1.0 Ur Leukocyte Esterase Neg Urine RBC (Auto) 2 Urine Microscopic WBC 3 Ur Squamous Epith Cells 25 H Urine Bacteria Occ H Stool Occult Blood Negative 04/23/17 04/23/17 05:23 10:42 POC Glucose (mg/dL) 93 165 H Iron TIBC % Saturation Ferritin Triglycerides Cholesterol LDL Cholesterol Direct HDL Cholesterol Vitamin B12 Urine Color Urine Clarity Urine pH Ur Specific [place] Urine Protein Urine Glucose (UA) Urine Ketones Urine Blood Urine Nitrate Urine Bilirubin Urine Urobilinogen Ur Leukocyte Esterase Urine RBC (Auto) Urine Microscopic WBC Ur Squamous Epith Cells Urine Bacteria Stool Occult Blood Assessment & Plan (1) Diabetes Status: Acute (2) Ankle fracture Status: Acute (3) Cellulitis Status: Acute - Assessment and Plan (Free Text) Assessment: cont wound care and IV antibiotics for post op infection' w/op signs of hardware infection at this time await cultures
[2017-04-23 13:03] LABS: HEMOGLOBIN 9.7 g/dL (12.0-16.0); MEAN CORPUSCULAR HGB CONC 31.7 g/dL (33.0-37.0); RBC 3.87 Mil/uL (3.80-5.20); RED CELL DISTRIBUTION WIDTH 15.1 % (11.5-14.5); WHITE BLOOD COUNT 11.4 K/uL (4.8-10.8)
[2017-04-23 13:12] LABS: BLOOD UREA NITROGEN 12 mg/dl (7-17); CALCIUM 9.2 mg/dL (8.4-10.2); GFR AFRICAN-AMERICAN > 60; GFR NON-AFRICAN AMERICAN > 60
--- NOTE | 2017-04-23 15:28 | CP.PCM.PN ---
Subjective - Date & Time of Evaluation Date of Evaluation: 04/23/17 Time of Evaluation: 08:50 - Subjective Subjective: Patient seen and examined this morning. NAD, c/o mild to moderate right ankle pain which is well controlled on pain medications. Patient denies any fever, nausea, vomiting, diarrhea, chest pain, SOB, abdominal pain, dizziness or urinary symptoms. Ankle dressing was changed this morning. Objective - Vital Signs/Intake and Output Vital Signs (last 24 hours): Temp Pulse Resp BP Pulse Ox 98.4 F 78 20 102/62 96 04/23/17 08:30 04/23/17 08:30 04/23/17 08:30 04/23/17 08:30 04/23/17 08:30 - Medications Medications: Current Medications Acetaminophen (Tylenol 325mg Tab) 650 mg PO Q6 PRN PRN Reason: Pain, Mild (1-3) Acetaminophen (Tylenol 325mg Tab) 650 mg PO Q6 PRN PRN Reason: Fever >100.4 F Dextrose (Dextrose 50% Inj) 0 ml IV STAT PRN; Protocol PRN Reason: Hypoglycemia Protocol Dextrose (Glutose 15) 0 gm PO ONCE PRN; Protocol PRN Reason: Hypoglycemia Protocol Enoxaparin Sodium (Lovenox) 40 mg SC DAILY PEGGY PRN Reason: Protocol Last Admin: 04/23/17 09:00 Dose: 40 mg Glucagon (Glucagen Diagnostic Kit) 0 mg IM STAT PRN; Protocol PRN Reason: Hypoglycemia Protocol Piperacillin Sod/Tazobactam (Sod 3.375 gm/ Sodium Chloride) 100 mls @ 100 mls/ hr IVPB Q6H PEGGY PRN Reason: Protocol Last Admin: 04/23/17 13:14 Dose: 100 mls/hr Vancomycin HCl 1 gm/ Sodium (Chloride) 250 mls @ 166.667 mls/hr IVPB Q12 PEGGY PRN Reason: Protocol Last Admin: 04/23/17 09:12 Dose: 166.667 mls/hr Ibuprofen (Motrin Tab) 600 mg PO Q6H PRN PRN Reason: Pain, moderate (4-7) Insulin Human Lispro (Humalog) 0 units SC ACHS PEGGY PRN Reason: Protocol Last Admin: 04/23/17 13:14 Dose: 2 units Metformin HCl (Glucophage) 500 mg PO BID [facility] Last Admin: 04/23/17 09:10 Dose: 500 mg Oxycodone/Acetaminophen (Percocet 5/325 Mg Tab) 1 tab PO Q4 PRN PRN Reason: Pain, severe (8-10) Stop: 04/24/17 19:23 Last Admin: 04/23/17 10:23 Dose: 1 tab - Labs Labs: 04/23/17 12:56 04/23/17 12:56 - Constitutional Appears: No Acute Distress - Head Exam Head Exam: ATRAUMATIC, NORMAL INSPECTION, NORMOCEPHALIC - Eye Exam Eye Exam: EOMI, Normal appearance, PERRL Pupil Exam: NORMAL ACCOMODATION - ENT Exam ENT Exam: Mucous Membranes Moist, Normal Exam - Neck Exam Neck Exam: Full ROM, Normal Inspection - Respiratory Exam Respiratory Exam: Clear to Ausculation Bilateral, NORMAL BREATHING PATTERN - Cardiovascular Exam Cardiovascular Exam: REGULAR RHYTHM - GI/Abdominal Exam GI & Abdominal Exam: Soft, Normal Bowel Sounds - Extremities Exam Additional comments: Right extremity dressing changed this morning Positive Pulses b/l LE, Right toes Tm warmer than left, Toes motor and sensory intact - Back Exam Back Exam: absent: CVA tenderness (L), CVA tenderness (R) - Neurological Exam Neurological Exam: Alert, Awake, Oriented x3 - Psychiatric Exam Psychiatric exam: Normal Affect - Skin Skin Exam: Normal Color Assessment and Plan - Assessment and Plan (Free Text) Assessment: A/P: 47 y/o female with PMH of DM , s/p Right Ankle fracture and right ankle orif admitted for infected wound of right ankle 1) Right ankle wound infection -s/p Right Ankle fracture and right ankle orif 04/07/17 -c/w walter Blake -Afebrile, WBC 11.4 today with ESR 118 -Podiatry: C/w abx and daily wound care, f/u Surgical sites C and S w/ gram stain, Patient to remain NWB to the RLE using crutches -Pain: acetaminophen 650 mg po q6 -ID consult appreciated: Continue Abx 3) Anemia -h/h: 9.7/30.5 -Multifactorial: blood loss 2/2 recent surgery of R ankle; serosanguinous discharge. -LMP 03/2016: dines menses/vaginal bleed 4) DM -HgA1c 7.2 03/25/17 -continue home medications Metformin 500 mg BID -SSI 5) DVT Prophylaxis Lovenox 40 mg sc daily
[2017-04-24] MEDS: Piperacillin/Tazobact 3.375 GM in Sodium Chloride 0.9% 100 ML IVPB SCH ×4 (00:03→17:03)
[2017-04-24] MEDS: Oxycodone/Acetaminophen 5/325 mg Tab PO PRN ×3 (02:44→20:33)
--- NOTE | 2017-04-24 09:13 | CP.PCM.PN ---
Subjective - Date & Time of Evaluation Date of Evaluation: 04/24/17 Time of Evaluation: 07:40 - Subjective Subjective: Progress note - Dr. Cortez 47 year old female patient was seen and evaluated at bedside 2 weeks s/p ORIF for trimalleolar fracture. Patient appears to be resting comfortably at the time of the visit. Patient denies of any acute overnight events. Patient is AAOx3 and is in NAD. Denies of any acute overnight pain and reports that she manages it well with the medication. Patient denies of any recent F/N/V/C/SOB/CP /headache/chest pain. Patient denies of any other pedal complains at this time. Objective - Vital Signs/Intake and Output Vital Signs (last 24 hours): Temp Pulse Resp BP Pulse Ox 98.5 F 84 18 111/70 97 04/24/17 08:51 04/24/17 08:51 04/24/17 08:51 04/24/17 08:51 04/24/17 08:51 - Medications Medications: Current Medications Acetaminophen (Tylenol 325mg Tab) 650 mg PO Q6 PRN PRN Reason: Pain, Mild (1-3) Acetaminophen (Tylenol 325mg Tab) 650 mg PO Q6 PRN PRN Reason: Fever >100.4 F Dextrose (Dextrose 50% Inj) 0 ml IV STAT PRN; Protocol PRN Reason: Hypoglycemia Protocol Dextrose (Glutose 15) 0 gm PO ONCE PRN; Protocol PRN Reason: Hypoglycemia Protocol Enoxaparin Sodium (Lovenox) 40 mg SC DAILY PEGGY PRN Reason: Protocol Last Admin: 04/23/17 09:00 Dose: 40 mg Glucagon (Glucagen Diagnostic Kit) 0 mg IM STAT PRN; Protocol PRN Reason: Hypoglycemia Protocol Piperacillin Sod/Tazobactam (Sod 3.375 gm/ Sodium Chloride) 100 mls @ 100 mls/ hr IVPB Q6H PEGGY PRN Reason: Protocol Last Admin: 04/24/17 05:59 Dose: 100 mls/hr Vancomycin HCl 1,250 mg/ (Sodium Chloride) 250 mls @ 250 mls/hr IVPB Q12H PEGGY PRN Reason: Protocol Ibuprofen (Motrin Tab) 600 mg PO Q6H PRN PRN Reason: Pain, moderate (4-7) Insulin Human Lispro (Humalog) 0 units SC ACHS PEGGY PRN Reason: Protocol Last Admin: 04/23/17 21:30 Dose: Not Given Metformin HCl (Glucophage) 500 mg PO BID [facility] Last Admin: 04/23/17 17:25 Dose: 500 mg Oxycodone/Acetaminophen (Percocet 5/325 Mg Tab) 1 tab PO Q4 PRN PRN Reason: Pain, severe (8-10) Stop: 04/24/17 19:23 Last Admin: 04/24/17 02:44 Dose: 1 tab - Labs Labs: 04/23/17 12:56 04/23/17 12:56 - Constitutional Appears: Well, Non-toxic, No Acute Distress - Extremities Exam Additional comments: LE focused exam: Vasc: DP/PT pulses fully palpable 2/4 b/l. Skin temperature increased to right ankle surrounding surgical sites. CFT < 3 seconds to all digits. Moderate, nonpitting edema noted to right ankle - edema on the leg appears to be resolving Derm: Incision site noted to right ankle in two locations, first being medial malleolus and second being posterior to lateral malleolus. Both surgical sites are macerated with sero-sanguineous drainage noted and with evidence of dehiscence - maceration present at the surgical site, no improvement since yesterday, the dehiscence is seen more on the lateral incision on the middle aspect; medial incision appears fairly intact, no malodor, no periwound erythema Neuro: Epicritic and protective sensation grossly intact b/l MSK: POP to entirety of right ankle and with any ROM. - Neurological Exam Neurological Exam: Alert, Awake, Oriented x3 - Psychiatric Exam Psychiatric exam: Normal Affect, Normal Mood Assessment and Plan - Assessment and Plan (Free Text) Assessment: 47 year old female evaluated for infected surgical sites, right ankle two weeks s/p ORIF for trimalleolar fracture Plan: Patient seen and evaluated Plan discussed with attending Dr. Cortez Afebrile, WBC 11.4 with ESR of 118 as of yesterday Culture from surgical sites taken and sent for C and S w/ gram stain - Enterobacter Cloacae Continue IV abx - vancomycin and zosyn ID consult placed - Recommendations from Dr. Hanley appreciated No signs of osteomyelitis or hardware malfunction on xray Suspicious of OM on MRI but increase in bone marrow edema could be contributory to the extensive ankle procedure with hardware Surgical sites cleaned with saline and dressed with betadine soaked adaptic, 4x4 , ABD, Kerlix and and posterior splint applied to patient's leg Patient to remain NWB to the RLE using crutches Podiatry will continue to follow while patient in house
[2017-04-24] MEDS: Insulin Lispro (humaLOG) 100 Units/ml Inj SC SCH ×4 (09:53→23:03)
[2017-04-24] MEDS: Enoxaparin 40 mg Syringe SC SCH (09:53)
--- NOTE | 2017-04-24 11:26 | MRI ---
PROCEDURE: MRI of the right ankle without contrast HISTORY: R/o Osteomylitis, S/p R ankle fcx and ORIF COMPARISON: Comparison is made with the previous CT of the right ankle dated 03/24/2017 previous x-ray of the right ankle dated 04/21/2017 TECHNIQUE: Axial coronal and sagittal MRI images of the right ankle were obtained without contrast administration. FINDINGS: The assessment is limited due to artifact from the hardware at the distal right tibia and fibula. The There is heterogeneous bone marrow edema noted at the talar dome more prominent medially. The possibility of avascular necrosis or infectious process is not totally excluded. There is also heterogeneous bone marrow hyperintense signal at the upper and distal portion of the calcaneus with focal area of heterogeneous hypo intense T1 signal at the mid to anterior portion of the calcaneus. Findings are nonspecific and the differential consideration includes postsurgical/traumatic changes. The possibility of an air leak osteomyelitis is not totally excluded. There is focal cortical discontinuity and possible erosion at the superior midportion of the calcaneus bone. The distal portion of the right tibia and fibula are not clearly visualized due to artifact from the hardware. There is heterogeneous diffuse soft tissue edema in the right ankle and right foot. There is focal soft tissue swelling and increased signal noted at the lateral aspect of the right ankle. IMPRESSION: Limited assessment due to lack of IV contrast administration and due to large artifact from the hardware at the distal right tibia and fibula. Abnormal bone marrow signal and suspicious for cortical erosion at the right talar dome and mid superior portion of the right calcaneus. The differential consideration includes avascular necrosis or osteomyelitis. Soft tissue swelling and increased signal more prominent at the lateral aspect of the right ankle.
--- NOTE | 2017-04-24 13:26 | CP.PCM.PN ---
Subjective - Date & Time of Evaluation Date of Evaluation: 04/24/17 Time of Evaluation: 10:00 - Subjective Subjective: Patient seen and examined at bedside. She is lying comfortably with right leg elevated. Patient reports adequate pain control and participated in non-weight bearing PT earlier today. She is tolerating diet and denies fevers, chills, chest pain, sob, abdominal pain, nausea or vomiting. Vanco trough overnight was sub-therapeutic and dose was increased. Objective - Vital Signs/Intake and Output Vital Signs (last 24 hours): Temp Pulse Resp BP Pulse Ox 98.5 F 84 18 111/70 97 04/24/17 08:51 04/24/17 08:51 04/24/17 08:51 04/24/17 08:51 04/24/17 08:51 - Medications Medications: Current Medications Acetaminophen (Tylenol 325mg Tab) 650 mg PO Q6 PRN PRN Reason: Pain, Mild (1-3) Acetaminophen (Tylenol 325mg Tab) 650 mg PO Q6 PRN PRN Reason: Fever >100.4 F Dextrose (Dextrose 50% Inj) 0 ml IV STAT PRN; Protocol PRN Reason: Hypoglycemia Protocol Dextrose (Glutose 15) 0 gm PO ONCE PRN; Protocol PRN Reason: Hypoglycemia Protocol Enoxaparin Sodium (Lovenox) 40 mg SC DAILY PEGGY PRN Reason: Protocol Last Admin: 04/24/17 09:53 Dose: 40 mg Glucagon (Glucagen Diagnostic Kit) 0 mg IM STAT PRN; Protocol PRN Reason: Hypoglycemia Protocol Piperacillin Sod/Tazobactam (Sod 3.375 gm/ Sodium Chloride) 100 mls @ 100 mls/ hr IVPB Q6H PEGGY PRN Reason: Protocol Last Admin: 04/24/17 12:57 Dose: 100 mls/hr Vancomycin HCl 1,250 mg/ (Sodium Chloride) 250 mls @ 250 mls/hr IVPB Q12H PEGGY PRN Reason: Protocol Last Admin: 04/24/17 11:20 Dose: 250 mls/hr Ibuprofen (Motrin Tab) 600 mg PO Q6H PRN PRN Reason: Pain, moderate (4-7) Insulin Human Lispro (Humalog) 0 units SC ACHS PEGGY PRN Reason: Protocol Last Admin: 04/24/17 12:56 Dose: Not Given Metformin HCl (Glucophage) 500 mg PO BID [facility] Last Admin: 04/24/17 09:53 Dose: 500 mg Oxycodone/Acetaminophen (Percocet 5/325 Mg Tab) 1 tab PO Q4 PRN PRN Reason: Pain, severe (8-10) Stop: 04/24/17 19:23 Last Admin: 04/24/17 09:58 Dose: 1 tab - Labs Labs: 04/23/17 12:56 04/23/17 12:56 - Constitutional Appears: Non-toxic, No Acute Distress - Head Exam Head Exam: ATRAUMATIC, NORMAL INSPECTION, NORMOCEPHALIC - Eye Exam Eye Exam: EOMI, PERRL - ENT Exam ENT Exam: Mucous Membranes Moist - Respiratory Exam Respiratory Exam: Clear to Ausculation Bilateral, NORMAL BREATHING PATTERN. absent: Rhonchi, Wheezes, Respiratory Distress - Cardiovascular Exam Cardiovascular Exam: REGULAR RHYTHM, RRR, +S1, +S2 - GI/Abdominal Exam GI & Abdominal Exam: Soft, Normal Bowel Sounds. absent: Distended, Tenderness - Extremities Exam Extremities Exam: absent: Calf Tenderness Additional comments: RLE dressing clean, dry, intact from foot to just below the knee. Distal sensation/motor intact, cap refill <2s. - Neurological Exam Neurological Exam: Alert, Awake, Oriented x3 - Psychiatric Exam Psychiatric exam: Normal Affect, Normal Mood Assessment and Plan - Assessment and Plan (Free Text) Assessment: 47 y/o F with PMH of DM2, s/p Right Ankle fracture and right ankle orif 04/07/17 admitted for infected wound of right ankle. Plan: Right ankle wound infection -s/p Right Ankle fracture and right ankle orif 04/07/17 -Currently Afebrile -Continue Vancomycin (1gm Q12 started 04/22, Increased to 1.25gm Q12 today, Current day 3) -Continue Zosyn 3.375gm Q6h (Started 04/22, Current day 3) -ESR 118 -MRI performed which shows suspicion for osteomyelitis vs avascular necrosis -Podiatry following case, recommends continued abx and wound care at this time. Pending further treatment decision -Patient to remain NWB to the RLE using crutches -Motrin 600mg Q6h prn moderate pain -Percocet 5/325 PO Q4h PRN severe pain -ID consult appreciated Anemia -H/H: 9.7/30.5, MCV: 79 -Multifactorial: blood loss 2/2 recent surgery of R ankle; serosanguinous discharge -LMP 03/2016: denies menses/vaginal bleed -Will perform iron studies NIDDM2 -Last HgA1c: 7.2 03/25/17 -Continue home medications Metformin 500 mg BID -SSI -ACCUchecks ACHS DVT Prophylaxis -Lovenox 40 mg sc daily
[2017-04-25] MEDS: Piperacillin/Tazobact 3.375 GM in Sodium Chloride 0.9% 100 ML IVPB SCH ×4 (00:10→18:23)
[2017-04-25] MEDS: Oxycodone/Acetaminophen 5/325 mg Tab PO PRN ×3 (06:11→20:17)
[2017-04-25 07:25] LABS: BASO % 0.5 % (0.0-2.0); EOS # 0.1 K/uL (0.0-0.7); EOS % 1.7 % (0.0-4.0); HEMOGLOBIN 9.1 g/dL (12.0-16.0); LYMPH # 1.8 K/uL (1.0-4.3); LYMPH % 21.1 % (20.0-40.0); MEAN CELL VOLUME 78.9 fl (81.0-99.0); MEAN CORPUSCULAR HEMOGLOBIN 25.7 pg (27.0-31.0); MEAN CORPUSCULAR HGB CONC 32.6 g/dL (33.0-37.0); MEAN PLATELET VOLUME 7.4 fl (7.2-11.7); MONO # 0.4 K/uL (0.0-0.8); MONO % 5.2 % (0.0-10.0); NEUT # 6.2 K/uL (1.8-7.0); NEUT % 71.5 % (50.0-75.0); NRBC % 0.1 % (0.0-0.0); RBC 3.53 Mil/uL (3.80-5.20); RED CELL DISTRIBUTION WIDTH 15.3 % (11.5-14.5); WHITE BLOOD COUNT 8.6 K/uL (4.8-10.8)
[2017-04-25 07:27] LABS: BLOOD UREA NITROGEN 10 mg/dl (7-17); CALCIUM 9.1 mg/dL (8.4-10.2); GFR AFRICAN-AMERICAN > 60; GFR NON-AFRICAN AMERICAN 60
[2017-04-25] MEDS: Insulin Lispro (humaLOG) 100 Units/ml Inj SC SCH ×4 (09:20→23:47)
[2017-04-25] MEDS: Enoxaparin 40 mg Syringe SC SCH (09:21)
--- NOTE | 2017-04-25 10:06 | CP.PCM.PN ---
Subjective - Date & Time of Evaluation Date of Evaluation: 04/25/17 Time of Evaluation: 10:04 - Subjective Subjective: Patient seen and examined this morning, NAD. Patient admits right ankle pain but controlled on pain medications. Patient is NWB and afebrile, tolerating PO diet, denies any nausea, vomiting, dizziness, SOB, chest pain, abdominal pain or urinary symptoms. Patient was informed about ESR and MRI results. Objective - Vital Signs/Intake and Output Vital Signs (last 24 hours): Temp Pulse Resp BP Pulse Ox 98.2 F 68 18 111/76 96 04/25/17 08:51 04/25/17 08:51 04/25/17 08:51 04/25/17 08:51 04/25/17 08:51 - Medications Medications: Current Medications Acetaminophen (Tylenol 325mg Tab) 650 mg PO Q6 PRN PRN Reason: Pain, Mild (1-3) Acetaminophen (Tylenol 325mg Tab) 650 mg PO Q6 PRN PRN Reason: Fever >100.4 F Dextrose (Dextrose 50% Inj) 0 ml IV STAT PRN; Protocol PRN Reason: Hypoglycemia Protocol Dextrose (Glutose 15) 0 gm PO ONCE PRN; Protocol PRN Reason: Hypoglycemia Protocol Glucagon (Glucagen Diagnostic Kit) 0 mg IM STAT PRN; Protocol PRN Reason: Hypoglycemia Protocol Piperacillin Sod/Tazobactam (Sod 3.375 gm/ Sodium Chloride) 100 mls @ 100 mls/ hr IVPB Q6H PEGGY PRN Reason: Protocol Last Admin: 04/25/17 06:06 Dose: 100 mls/hr Vancomycin HCl 1,250 mg/ (Sodium Chloride) 250 mls @ 250 mls/hr IVPB Q12H PEGGY PRN Reason: Protocol Last Admin: 04/25/17 09:18 Dose: 250 mls/hr Ibuprofen (Motrin Tab) 600 mg PO Q6H PRN PRN Reason: Pain, moderate (4-7) Insulin Human Lispro (Humalog) 0 units SC ACHS PEGGY PRN Reason: Protocol Last Admin: 04/25/17 09:20 Dose: Not Given Metformin HCl (Glucophage) 500 mg PO BID [facility] Last Admin: 04/25/17 09:20 Dose: 500 mg Oxycodone/Acetaminophen (Percocet 5/325 Mg Tab) 1 tab PO Q4 PRN PRN Reason: Pain, severe (8-10) Stop: 04/27/17 20:28 Last Admin: 04/25/17 06:11 Dose: 1 tab - Labs Labs: 04/25/17 05:30 04/25/17 05:30 - Constitutional Appears: No Acute Distress - Head Exam Head Exam: ATRAUMATIC, NORMAL INSPECTION, NORMOCEPHALIC - Eye Exam Eye Exam: EOMI, Normal appearance, PERRL Pupil Exam: NORMAL ACCOMODATION, PERRL - ENT Exam ENT Exam: Mucous Membranes Moist - Neck Exam Neck Exam: Full ROM - Respiratory Exam Respiratory Exam: Clear to Ausculation Bilateral, NORMAL BREATHING PATTERN - Cardiovascular Exam Cardiovascular Exam: REGULAR RHYTHM - GI/Abdominal Exam GI & Abdominal Exam: Soft, Normal Bowel Sounds - Extremities Exam Extremities Exam: Normal Capillary Refill Additional comments: Right foot cover with dressing Movements and sensory intact in toes - Back Exam Back Exam: absent: CVA tenderness (L), CVA tenderness (R) - Neurological Exam Neurological Exam: Alert, Awake, Oriented x3 - Psychiatric Exam Psychiatric exam: Normal Affect, Normal Mood - Skin Skin Exam: Dry, Intact, Normal Color Assessment and Plan - Assessment and Plan (Free Text) Assessment: A/P: 47 y/o F with PMH of DM2, s/p Right Ankle fracture and right ankle orif 04/07/17 admitted for infected wound of right ankle. Elevated ESR and MRI on 04/23; possible OM vs avascular necrosis. Right ankle wound infection -s/p Right Ankle fracture and right ankle orif 04/07/17 -Currently Afebrile -Continue Vancomycin (1gm Q12 started 04/22, Increased to 1.25gm Q12 on 04/24, Current day 4, Will repeat Vanc Trough on 04/26 before the morning dose) -Continue Zosyn 3.375gm Q6h (Started 04/22, Current day 4) -Wound Cx 04/21: Enterobacter Colacae -ESR 118 on 04/23/17 -MRI (04/23) performed which shows suspicion for osteomyelitis vs avascular necrosis -Podiatry following case, recommends continued abx and wound care at this time. Pending further treatment decision -Patient to remain NWB to the RLE using crutches -Motrin 600mg Q6h prn moderate pain -Percocet 5/325 PO Q4h PRN severe pain -ID consult appreciated, Patient needs prolonged course of Abx -Possible PICC line tomorrow -Vitamin D 2000U -ESR for tomorrow Anemia, secondary to mixed etiology iron deficiency and/or chronic disease -H/H: 9.1/27.9, MCV: 78.9 on 04/25 -Iron studies 04/22/17: Iron 32, TIBC 192, % sat 17, Ferritin 129 -Multifactorial: blood loss 2/2 recent surgery of R ankle; serosanguinous discharge -LMP 03/2016: denies menses/vaginal bleed NIDDM2 -Last HgA1c: 7.2 03/25/17 -Continue home medications Metformin 500 mg BID -SSI -ACCUchecks before breakfast and before dinner DVT Prophylaxis -Lovenox 40 mg sc daily HIV Screening - F/u HIV
--- NOTE | 2017-04-25 13:12 | CP.PCM.PN ---
Subjective - Date & Time of Evaluation Date of Evaluation: 04/25/17 Time of Evaluation: 09:00 - Subjective Subjective: decreased drainage and no fever pain less awake alert NAD MRI (04/23) performed which shows suspicion for osteomyelitis vs avascular necrosis However findings relate to [place] and calcaneus and may be secondary to bone contusion ? await poditry eval May need terminal worker IV rx Cultures + Enterobacter which is not specific since obtainned from wound but can be treated with Cipro PO Objective - Vital Signs/Intake and Output Vital Signs (last 24 hours): Temp Pulse Resp BP Pulse Ox 98.2 F 68 18 111/76 96 04/25/17 08:51 04/25/17 08:51 04/25/17 08:51 04/25/17 08:51 04/25/17 08:51 - Medications Medications: Current Medications Acetaminophen (Tylenol 325mg Tab) 650 mg PO Q6 PRN PRN Reason: Pain, Mild (1-3) Acetaminophen (Tylenol 325mg Tab) 650 mg PO Q6 PRN PRN Reason: Fever >100.4 F Cholecalciferol (Vitamin D) 2,[address] [facility] Dextrose (Dextrose 50% Inj) 0 ml IV STAT PRN; Protocol PRN Reason: Hypoglycemia Protocol Dextrose (Glutose 15) 0 gm PO ONCE PRN; Protocol PRN Reason: Hypoglycemia Protocol Glucagon (Glucagen Diagnostic Kit) 0 mg IM STAT PRN; Protocol PRN Reason: Hypoglycemia Protocol Piperacillin Sod/Tazobactam (Sod 3.375 gm/ Sodium Chloride) 100 mls @ 100 mls/ hr IVPB Q6H PEGGY PRN Reason: Protocol Last Admin: 04/25/17 06:06 Dose: 100 mls/hr Vancomycin HCl 1,250 mg/ (Sodium Chloride) 250 mls @ 250 mls/hr IVPB Q12H PEGGY PRN Reason: Protocol Last Admin: 04/25/17 09:18 Dose: 250 mls/hr Ibuprofen (Motrin Tab) 600 mg PO Q6H PRN PRN Reason: Pain, moderate (4-7) Insulin Human Lispro (Humalog) 0 units SC ACHS PEGGY PRN Reason: Protocol Last Admin: 04/25/17 09:20 Dose: Not Given Metformin HCl (Glucophage) [address] [facility] Last Admin: 04/25/17 09:20 Dose: 500 mg Oxycodone/Acetaminophen (Percocet 5/325 Mg Tab) 1 tab PO Q4 PRN PRN Reason: Pain, severe (8-10) Stop: 04/27/17 20:28 Last Admin: 04/25/17 06:11 Dose: 1 tab - Labs Labs: 04/25/17 05:30 04/25/17 05:30 - Constitutional Appears: Non-toxic, Chronically Ill - Head Exam Head Exam: NORMOCEPHALIC - Eye Exam Eye Exam: PERRL - ENT Exam ENT Exam: Mucous Membranes Dry - Neck Exam Neck Exam: absent: Lymphadenopathy - Respiratory Exam Respiratory Exam: Decreased Breath Sounds - Cardiovascular Exam Cardiovascular Exam: REGULAR RHYTHM, +S1, +S2 - GI/Abdominal Exam GI & Abdominal Exam: Distended, Soft. absent: Tenderness - Rectal Exam Rectal Exam: Deferred - Exam Exam: NORMAL INSPECTION - Extremities Exam Extremities Exam: absent: Pedal Edema - Back Exam Back Exam: absent: CVA tenderness (L), CVA tenderness (R) Assessment and Plan (1) Diabetes Status: Acute (2) Ankle fracture Status: Acute (3) Cellulitis Status: Acute - Assessment and Plan (Free Text) Assessment: MRI (04/23) performed which shows suspicion for osteomyelitis vs avascular necrosis However findings relate to [place] and calcaneus and may be secondary to bone contusion ? await poditry eval May need custodial IV rx Cultures + Enterobacter which is not specific since obtainned from wound (but can be treated with Cipro PO) consider PICC with out pt IV antibiotics - possibly IV Cubicin + PO Cipro for 6 weeks with serial CRP's and ongoing wound care
--- NOTE | 2017-04-25 13:15 | CP.PCM.PN ---
Subjective - Date & Time of Evaluation Date of Evaluation: 04/25/17 Time of Evaluation: 11:00 - Subjective Subjective: Progress note - Dr. Cortez 47 year old female patient was seen and evaluated at bedside 2 weeks s/p ORIF for trimalleolar fracture. Patient appears to be resting comfortably at the time of the visit. Patient denies of any acute overnight events. Patient is AAOx3 and is in NAD. Reports that she manages her pain well with the medication. Patient denies of any recent F/N/V/C/SOB/CP/headache/chest pain. Patient denies of any other pedal complains at this time. Objective - Vital Signs/Intake and Output Vital Signs (last 24 hours): Temp Pulse Resp BP Pulse Ox 98.2 F 68 18 111/76 96 04/25/17 08:51 04/25/17 08:51 04/25/17 08:51 04/25/17 08:51 04/25/17 08:51 - Medications Medications: Current Medications Acetaminophen (Tylenol 325mg Tab) 650 mg PO Q6 PRN PRN Reason: Pain, Mild (1-3) Acetaminophen (Tylenol 325mg Tab) 650 mg PO Q6 PRN PRN Reason: Fever >100.4 F Cholecalciferol (Vitamin D) 2,000 intlu PO DAILY PEGGY Dextrose (Dextrose 50% Inj) 0 ml IV STAT PRN; Protocol PRN Reason: Hypoglycemia Protocol Dextrose (Glutose 15) 0 gm PO ONCE PRN; Protocol PRN Reason: Hypoglycemia Protocol Glucagon (Glucagen Diagnostic Kit) 0 mg IM STAT PRN; Protocol PRN Reason: Hypoglycemia Protocol Piperacillin Sod/Tazobactam (Sod 3.375 gm/ Sodium Chloride) 100 mls @ 100 mls/ hr IVPB Q6H PEGGY PRN Reason: Protocol Last Admin: 04/25/17 06:06 Dose: 100 mls/hr Vancomycin HCl 1,250 mg/ (Sodium Chloride) 250 mls @ 250 mls/hr IVPB Q12H PEGGY PRN Reason: Protocol Last Admin: 04/25/17 09:18 Dose: 250 mls/hr Ibuprofen (Motrin Tab) 600 mg PO Q6H PRN PRN Reason: Pain, moderate (4-7) Insulin Human Lispro (Humalog) 0 units SC ACHS PEGGY PRN Reason: Protocol Last Admin: 04/25/17 09:20 Dose: Not Given Metformin HCl (Glucophage) 500 mg PO BID [facility] Last Admin: 04/25/17 09:20 Dose: 500 mg Oxycodone/Acetaminophen (Percocet 5/325 Mg Tab) 1 tab PO Q4 PRN PRN Reason: Pain, severe (8-10) Stop: 04/27/17 20:28 Last Admin: 04/25/17 06:11 Dose: 1 tab - Labs Labs: 04/25/17 05:30 04/25/17 05:30 - Constitutional Appears: Well, Non-toxic, No Acute Distress - Extremities Exam Additional comments: LE focused exam: Vasc: DP/PT pulses fully palpable 2/4 b/l. Skin temperature increased to right ankle surrounding surgical sites. CFT < 3 seconds to all digits. Moderate, nonpitting edema noted to right ankle - edema on the leg appears to be resolving Derm: Incision site noted to right ankle in two locations, first being medial malleolus and second being posterior to lateral malleolus. Both surgical sites are macerated with sero-sanguineous drainage noted and with evidence of dehiscence - maceration present at the surgical site - appears to have little improvement since yesterday, the dehiscence is seen more on the lateral incision on the middle aspect; medial incision appears fairly intact, no malodor , no periwound erythema, no purulent drainage appreciated when squeezing her ankle Neuro: Epicritic and protective sensation grossly intact b/l MSK: POP to entirety of right ankle and with any ROM. - Neurological Exam Neurological Exam: Alert, Awake, Oriented x3 - Psychiatric Exam Psychiatric exam: Normal Affect, Normal Mood Assessment and Plan - Assessment and Plan (Free Text) Assessment: 47 year old female evaluated for infected surgical sites, right ankle two weeks s/p ORIF for trimalleolar fracture Plan: Patient seen and evaluated Plan discussed with attending Dr. Cortez Afebrile, WBC 8.6 Culture from surgical sites taken and sent for C and S w/ gram stain - Enterobacter Cloacae Continue IV abx as per ID - vancomycin and zosyn ID consult placed - Recommendations from Dr. Hanley appreciated No signs of osteomyelitis or hardware malfunction on xray Suspicious of OM on MRI but increase in bone marrow edema could be contributory to the extensive ankle procedure with hardware Surgical sites cleaned with saline and dressed with betadine soaked adaptic, 4x4 , ABD, Kerlix and and posterior splint applied to patient's leg Patient to remain NWB to the RLE using crutches Podiatry will continue to follow while patient in house
[2017-04-25] MEDS: Cholecalciferol 1,000 INTLU TAB PO SCH (16:06)
[2017-04-26] MEDS: Piperacillin/Tazobact 3.375 GM in Sodium Chloride 0.9% 100 ML IVPB SCH ×4 (01:10→17:21)
[2017-04-26] MEDS: Insulin Lispro (humaLOG) 100 Units/ml Inj SC SCH ×4 (06:32→23:37)
[2017-04-26] MEDS: Cholecalciferol 1,000 INTLU TAB PO SCH (09:07)
--- NOTE | 2017-04-26 09:23 | CP.PCM.PN ---
Subjective - Date & Time of Evaluation Date of Evaluation: 04/26/17 Time of Evaluation: 09:20 - Subjective Subjective: Patient seen and examined this morning, comfortably sleeping in bed. Patient denies any Right foot pain, tolerating diet, afebrile, and denies any dizziness or chest pain. Patient is c/o diarrhea this morning. Objective - Vital Signs/Intake and Output Vital Signs (last 24 hours): Temp Pulse Resp BP Pulse Ox 99.7 F H 88 20 119/76 96 04/26/17 08:37 04/26/17 08:37 04/26/17 08:37 04/26/17 08:37 04/26/17 08:37 - Medications Medications: Current Medications Acetaminophen (Tylenol 325mg Tab) 650 mg PO Q6 PRN PRN Reason: Pain, Mild (1-3) Acetaminophen (Tylenol 325mg Tab) 650 mg PO Q6 PRN PRN Reason: Fever >100.4 F Cholecalciferol (Vitamin D) 2,000 intlu PO DAILY [facility] Last Admin: 04/26/17 09:07 Dose: 2,000 intlu Dextrose (Dextrose 50% Inj) 0 ml IV STAT PRN; Protocol PRN Reason: Hypoglycemia Protocol Dextrose (Glutose 15) 0 gm PO ONCE PRN; Protocol PRN Reason: Hypoglycemia Protocol Glucagon (Glucagen Diagnostic Kit) 0 mg IM STAT PRN; Protocol PRN Reason: Hypoglycemia Protocol Piperacillin Sod/Tazobactam (Sod 3.375 gm/ Sodium Chloride) 100 mls @ 100 mls/ hr IVPB Q6H PEGGY PRN Reason: Protocol Last Admin: 04/26/17 05:47 Dose: 100 mls/hr Vancomycin HCl 1,250 mg/ (Sodium Chloride) 250 mls @ 250 mls/hr IVPB Q12H PEGGY PRN Reason: Protocol Last Admin: 04/26/17 09:08 Dose: 250 mls/hr Ibuprofen (Motrin Tab) 600 mg PO Q6H PRN PRN Reason: Pain, moderate (4-7) Insulin Human Lispro (Humalog) 0 units SC ACHS PEGGY PRN Reason: Protocol Last Admin: 04/26/17 06:32 Dose: Not Given Metformin HCl (Glucophage) 500 mg PO BID [facility] Last Admin: 04/26/17 09:07 Dose: 500 mg Oxycodone/Acetaminophen (Percocet 5/325 Mg Tab) 1 tab PO Q4 PRN PRN Reason: Pain, severe (8-10) Stop: 04/27/17 20:28 Last Admin: 04/25/17 20:17 Dose: 1 tab - Labs Labs: 04/25/17 05:30 04/25/17 05:30 - Constitutional Appears: No Acute Distress - Head Exam Head Exam: ATRAUMATIC, NORMAL INSPECTION, NORMOCEPHALIC - Eye Exam Eye Exam: EOMI - ENT Exam ENT Exam: Mucous Membranes Moist - Neck Exam Neck Exam: Normal Inspection - Respiratory Exam Respiratory Exam: Clear to Ausculation Bilateral - Cardiovascular Exam Cardiovascular Exam: REGULAR RHYTHM - GI/Abdominal Exam GI & Abdominal Exam: Soft, Normal Bowel Sounds. absent: Tenderness - Extremities Exam Additional comments: Right foot covered Right Toes: intact sensory and movement - Back Exam Back Exam: NORMAL INSPECTION - Neurological Exam Neurological Exam: Alert, Awake, Oriented x3 - Psychiatric Exam Psychiatric exam: Normal Affect - Skin Skin Exam: Dry, Intact Assessment and Plan - Assessment and Plan (Free Text) Assessment: A/P: 47 y/o F with PMH of DM2, s/p Right Ankle fracture and right ankle orif 04/07/17 admitted for infected wound of right ankle. Elevated ESR and MRI on 04/23; possible OM vs avascular necrosis. Right ankle wound infection -s/p Right Ankle fracture and right ankle orif 04/07/17 -Currently Afebrile -Continue Vancomycin, day 5 (1gm Q12 started 04/22, Increased to 1.25gm Q12 on , Current day 4, repeated Vanc Trough on 04/26 at 8 am 13.8 after 4 doses on Vanc 1.2, Increased Vanc to 1.5gm Q12 on 04/26 from evening dose) -Continue Zosyn 3.375gm Q6h (Started 04/22, Current day 5) -Wound Cx 04/21: Enterobacter Colacae -ESR Today 117, (ESR 04/23: 118) -MRI (04/23) performed which shows suspicion for osteomyelitis vs avascular necrosis -Podiatry following case, recommends continued abx and wound care at this time. Pending further treatment decision -Patient to remain NWB to the RLE using crutches -Motrin 600mg Q6h prn moderate pain -Percocet 5/325 PO Q4h PRN severe pain -ID consult appreciated, Patient needs prolonged course of Abx -Possible IV Cubicin + PO Cipro for 6 weeks after PICC line, with serial CRPs and woundcare -Possible PICC line Today, Patient is aware -Vitamin D 2000U Anemia, secondary to mixed etiology iron deficiency and/or chronic disease -H/H: 9.1/27.9, MCV: 78.9 on 04/25 -Iron studies 04/22/17: Iron 32, TIBC 192, % sat 17, Ferritin 129 -Multifactorial: blood loss 2/2 recent surgery of R ankle; serosanguinous discharge -LMP 03/2016: denies menses/vaginal bleed Diarrhea - Possibly secondary due to antibiotics - Lactobacillus Acidop 1 cap PO BID NIDDM2 -Last HgA1c: 7.2 03/25/17 -Continue home medications Metformin 500 mg BID -SSI -ACCUchecks before breakfast and before dinner DVT Prophylaxis -Lovenox 40 mg sc daily HIV Screening - F/u HIV
[2017-04-26] MEDS ORDERED: Lidocaine 1% Inj (20ml) ONE (10:02)
--- NOTE | 2017-04-26 10:35 | PCM.SURG1 ---
Surgeon's Initial Post Op Note - Surgeon's Notes Surgeon: Lyle Jimenes MD Environmental Program Manager: None Type of Anesthesia: Local Pre-Operative Diagnosis: infection Operative Findings: patent right basilic vein. catheter length: 39 cm. catheter tip: cavoatrial junction Post-Operative Diagnosis: same Operation Performed: RUE PICC Insertion Specimen/Specimens Removed: n/a Estimated Blood Loss: EBL {In ML}: 0 Date of Surgery/Procedure: 04/26/17 Time of Surgery/Procedure: 10:30
--- NOTE | 2017-04-26 12:49 | CP.PCM.PN ---
Subjective - Date & Time of Evaluation Date of Evaluation: 04/26/17 Time of Evaluation: 07:40 - Subjective Subjective: Progress note - Dr. Cortez 47 year old female patient was seen and evaluated at bedside 3 weeks s/p ORIF for trimalleolar fracture. Patient appears to be resting comfortably at the time of the visit. Patient denies of any acute overnight events. Reports that she manages her pain well with the medication; and pain only bothers her during dressing changes. Patient denies of any recent F/N/V/C/SOB/CP/headache/chest pain. Patient denies of any other pedal complains at this time. Objective - Vital Signs/Intake and Output Vital Signs (last 24 hours): Temp Pulse Resp BP Pulse Ox 99.2 F 90 18 119/65 96 04/26/17 10:00 04/26/17 10:00 04/26/17 10:00 04/26/17 10:00 04/26/17 08:37 - Medications Medications: Current Medications Acetaminophen (Tylenol 325mg Tab) 650 mg PO Q6 PRN PRN Reason: Pain, Mild (1-3) Acetaminophen (Tylenol 325mg Tab) 650 mg PO Q6 PRN PRN Reason: Fever >100.4 F Cholecalciferol (Vitamin D) 2,000 intlu PO DAILY [facility] Last Admin: 04/26/17 09:07 Dose: 2,000 intlu Dextrose (Dextrose 50% Inj) 0 ml IV STAT PRN; Protocol PRN Reason: Hypoglycemia Protocol Dextrose (Glutose 15) 0 gm PO ONCE PRN; Protocol PRN Reason: Hypoglycemia Protocol Glucagon (Glucagen Diagnostic Kit) 0 mg IM STAT PRN; Protocol PRN Reason: Hypoglycemia Protocol Piperacillin Sod/Tazobactam (Sod 3.375 gm/ Sodium Chloride) 100 mls @ 100 mls/ hr IVPB Q6H [facility]GGY PRN Reason: Protocol Last Admin: 04/26/17 12:31 Dose: 100 mls/hr Vancomycin HCl 1,250 mg/ (Sodium Chloride) 250 mls @ 250 mls/hr IVPB Q12H PEGGY PRN Reason: Protocol Last Admin: 04/26/17 09:08 Dose: 250 mls/hr Ibuprofen (Motrin Tab) 600 mg PO Q6H PRN PRN Reason: Pain, moderate (4-7) Insulin Human Lispro (Humalog) 0 units SC ACHS PEGGY PRN Reason: Protocol Last Admin: 04/26/17 12:21 Dose: Not Given Lactobacillus Acidophilus (Bacid Acidophilus) 1 cap PO BID [facility] Metformin HCl (Glucophage) 500 mg PO BID [facility] Last Admin: 04/26/17 09:07 Dose: 500 mg Oxycodone/Acetaminophen (Percocet 5/325 Mg Tab) 1 tab PO Q4 PRN PRN Reason: Pain, severe (8-10) Stop: 04/27/17 20:28 Last Admin: 04/25/17 20:17 Dose: 1 tab - Labs Labs: 04/25/17 05:30 04/25/17 05:30 - Constitutional Appears: Well, Non-toxic, No Acute Distress - Extremities Exam Additional comments: LE focused exam: Vasc: DP/PT pulses fully palpable 2/4 b/l. Skin temperature increased to right ankle surrounding surgical sites. CFT < 3 seconds to all digits. Moderate, nonpitting edema noted to right ankle - edema on the leg appears to be resolving Derm: Incision site noted to right ankle in two locations, first being medial malleolus and second being posterior to lateral malleolus. Both surgical sites are macerated with sero-sanguineous drainage noted and with evidence of dehiscence - maceration present at the surgical site - appears to have little improvement since yesterday, the dehiscence is seen more on the lateral incision on the middle aspect; medial incision appears fairly intact, no malodor , no periwound erythema, no purulent drainage appreciated when squeezing her ankle Neuro: Epicritic and protective sensation grossly intact b/l MSK: POP to entirety of right ankle and with any ROM. - Neurological Exam Neurological Exam: Alert, Awake, Oriented x3 - Psychiatric Exam Psychiatric exam: Normal Affect, Normal Mood Assessment and Plan - Assessment and Plan (Free Text) Assessment: 47 year old female evaluated for infected surgical sites, right ankle two weeks s/p ORIF for trimalleolar fracture Plan: Patient seen and evaluated Plan discussed with attending Dr. Cortez Afebrile, WBC 8.6 as of yesterday and ESR @ 117 as of today Culture from surgical sites taken and sent for C and S w/ gram stain - Enterobacter Cloacae Continue IV abx as per ID - vancomycin and zosyn ID consult placed - Recommendations from Dr. Hanley appreciated - 6 weeks of cubicin and PO cipro - PICC in place No signs of osteomyelitis or hardware malfunction on xray Suspicious of OM on MRI but increase in bone marrow edema could be contributory to the extensive ankle procedure with hardware Surgical sites cleaned with saline and dressed with betadine soaked adaptic, 4x4 , ABD, Kerlix and and posterior splint applied to patient's leg Patient to remain NWB to the RLE using crutches Podiatry will continue to follow while patient in house Upon discharge; follow up with Dr. Cortez in podiatry clinic every Wednesday
[2017-04-26 16:31] VITALS: RESP 20
[2017-04-26] MEDS: Lactobacillus Acidophilus 500 MU Cap PO SCH (17:20)
[2017-04-26] MEDS: Oxycodone/Acetaminophen 5/325 mg Tab PO PRN (18:56)
[2017-04-27] MEDS: Piperacillin/Tazobact 3.375 GM in Sodium Chloride 0.9% 100 ML IVPB SCH ×3 (00:25→11:56)
[2017-04-27] MEDS: Oxycodone/Acetaminophen 5/325 mg Tab PO PRN ×3 (01:15→14:38)
[2017-04-27] MEDS: Insulin Lispro (humaLOG) 100 Units/ml Inj SC SCH ×2 (06:47→11:58)
--- NOTE | 2017-04-27 07:34 | CP.PCM.PN ---
Subjective - Date & Time of Evaluation Date of Evaluation: 04/27/17 Time of Evaluation: 08:45 - Subjective Subjective: Progress note - Dr. Cortez 47 year old female patient was seen and evaluated at bedside 3 weeks s/p ORIF for trimalleolar fracture. Patient appears to be resting comfortably at the time of the visit. Patient denies of any acute overnight events. Managing pain well with the medication. Patient denies of any recent F/N/V/C/SOB/CP/headache/ chest pain. Reports that she had diarrhea yesterday. Patient denies of any other pedal complains at this time. Objective - Vital Signs/Intake and Output Vital Signs (last 24 hours): Temp Pulse Resp BP Pulse Ox 98.0 F 67 20 131/74 98 04/26/17 23:32 04/26/17 23:32 04/26/17 23:32 04/26/17 23:32 04/26/17 23:32 - Medications Medications: Current Medications Acetaminophen (Tylenol 325mg Tab) 650 mg PO Q6 PRN PRN Reason: Pain, Mild (1-3) Acetaminophen (Tylenol 325mg Tab) 650 mg PO Q6 PRN PRN Reason: Fever >100.4 F Cholecalciferol (Vitamin D) 2,000 intlu PO DAILY [facility] Last Admin: 04/26/17 09:07 Dose: 2,000 intlu Dextrose (Dextrose 50% Inj) 0 ml IV STAT PRN; Protocol PRN Reason: Hypoglycemia Protocol Dextrose (Glutose 15) 0 gm PO ONCE PRN; Protocol PRN Reason: Hypoglycemia Protocol Enoxaparin Sodium (Lovenox) 40 mg SC DAILY PEGGY PRN Reason: Protocol Glucagon (Glucagen Diagnostic Kit) 0 mg IM STAT PRN; Protocol PRN Reason: Hypoglycemia Protocol Piperacillin Sod/Tazobactam (Sod 3.375 gm/ Sodium Chloride) 100 mls @ 100 mls/ hr IVPB Q6H PEGGY PRN Reason: Protocol Last Admin: 04/27/17 05:25 Dose: 100 mls/hr Vancomycin HCl 1,500 mg/ (Sodium Chloride) 500 mls @ 333.333 mls/hr IVPB Q12H PEGGY PRN Reason: Protocol Last Admin: 04/26/17 21:21 Dose: 333.333 mls/hr Ibuprofen (Motrin Tab) 600 mg PO Q6H PRN PRN Reason: Pain, moderate (4-7) Insulin Human Lispro (Humalog) 0 units SC ACHS [facility] PRN Reason: Protocol Last Admin: 04/27/17 06:47 Dose: Not Given Lactobacillus Acidophilus (Bacid Acidophilus) 1 cap PO BID [facility] Last Admin: 04/26/17 17:20 Dose: 1 cap Metformin HCl (Glucophage) 500 mg PO BID [facility] Last Admin: 04/26/17 17:20 Dose: 500 mg Oxycodone/Acetaminophen (Percocet 5/325 Mg Tab) 1 tab PO Q4 PRN PRN Reason: Pain, severe (8-10) Stop: 04/27/17 20:28 Last Admin: 04/27/17 06:35 Dose: 1 tab - Labs Labs: 04/25/17 05:30 04/25/17 05:30 - Constitutional Appears: Well, Non-toxic, No Acute Distress - Extremities Exam Additional comments: Splint is clean, dry and intact. No strike through noted from the dressing Active ROM intact at MTPJ Cap refill time: < 3 sec to all digits. Light tough sensation intact at the digits - Neurological Exam Neurological Exam: Alert, Awake, Oriented x3 - Psychiatric Exam Psychiatric exam: Normal Affect, Normal Mood Assessment and Plan - Assessment and Plan (Free Text) Assessment: 47 year old female evaluated for infected surgical sites, right ankle three weeks s/p ORIF for trimalleolar fracture Plan: Patient seen and evaluated Plan discussed with attending Dr. Cortez Afebrile, WBC 8.6 as of yesterday and ESR @ 117 as of yesterday Culture from surgical sites taken and sent for C and S w/ gram stain - Enterobacter Cloacae Continue IV abx as per ID - vancomycin and zosyn ID consult placed - Recommendations from Dr. Hanley appreciated - 6 weeks of cubicin and PO cipro - PICC in place No signs of osteomyelitis or hardware malfunction on xray Suspicious of OM on MRI but increase in bone marrow edema could be contributory to the extensive ankle procedure with hardware Splint is clean, dry and intact - will progress to change the splint once a week Patient to remain NWB to the RLE using crutches Podiatry will continue to follow while patient in house Upon discharge; follow up with Dr. Cortez in podiatry clinic every Wednesday
[2017-04-27 08:22] VITALS: BP 106/69; TEMP 98.1
[2017-04-27] MEDS: Lactobacillus Acidophilus 500 MU Cap PO SCH (08:55)
[2017-04-27] MEDS: Cholecalciferol 1,000 INTLU TAB PO SCH (08:56)
[2017-04-27] MEDS ORDERED: Enoxaparin 40 mg Syringe SC SCH (09:00)
--- NOTE | 2017-04-27 10:10 | VASCULAR ---
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 COMPARISON: None. PROCEDURE: 1. Focused ultrasound of the right upper extremity vasculature. 2. Ultrasound-guided access. 3. Insertion of peripherally inserted central venous catheter. 4. Fluoroscopic localization of catheter tip. PRE-PROCEDURE FINDINGS: 1. Patent right basilic vein. POST-PROCEDURE FINDINGS: 1. Placement of 4 Malagasy single-lumen PICC. 2. Catheter length: 39 cm. 3. Catheter tip at cavoatrial junction. INTERVENTIONAL RADIOLOGIST: Lyle Jimenes M.D. (the attending was present for the entire procedure) ANESTHESIA: None. MEDICATION: Lidocaine 1% for local subcutaneous analgesia. COMPLICATIONS: None. RADIATION DOSE: Fluoroscopy Time: 14.2 seconds Cumulative Dose: 2.07 mGy PROCEDURE DESCRIPTION AND FINDINGS: The risks, benefits, alternatives and possible complications of the procedure were fully discussed; all questions were answered and informed consent was obtained. The patient was brought into the interventional suite and a pre-procedure 'time-out' was performed. The patient was placed on the fluoroscopy table in the supine position. The right upper extremity was prepped and draped in the usual sterile fashion. Maximum sterile barrier precautions were maintained throughout the entire procedure. Preliminary ultrasound images of the right upper extremity vasculature demonstrate patency of the right basilic vein. Following subcutaneous infiltration of 1% lidocaine for local analgesia, under ultrasound guidance, a 21-gauge needle was advanced into the right basilic vein with real-time visualization of needle entry. The ultrasound images were permanently recorded and submitted to the PACS. A 0.018 guidewire was advanced centrally to the cavoatrial junction. A 4.5 Malagasy peel-away sheath was advanced over the guidewire. After obtaining length measurement, a 4 Malagasy single-lumen PICC was placed with the tip of the catheter at the cavoatrial junction. The total length of the catheter is 39 cm. The hub of the PICC was secured to the skin using a sterile adhesive bandage. The patient tolerated the procedure well without immediate post-procedure complications and was transferred back to the floor in stable condition. IMPRESSION: SUCCESSFUL INSERTION OF RIGHT UPPER EXTREMITY PICC. PICC OK TO USE.
[2017-04-27 10:43] VITALS: O2SAT 98
[2017-04-27] MEDS ORDERED: Vitamin A/D oint 60G TP PRN (10:44)
[2017-04-27] MEDS ORDERED: Vitamin A/D oint 60G TP ONE (10:46)
--- NOTE | 2017-04-27 12:18 | CP.PCM.DIS ---
Provider - Provider Date of Admission: 04/21/17 17:53 Attending physician: Kalyn Khan MD Time Spent in preparation of Discharge (in minutes): 40 Diagnosis - Discharge Diagnosis (1) Diabetes Status: Acute (2) Wound infection after surgery Status: Acute (3) Anemia Status: Acute (4) Ankle fracture Status: Acute Hospital Course - Lab Results Lab Results: Micro Results 04/21/17 17:20 Blood Blood Culture - Final NO GROWTH AFTER 5 DAYS 04/21/17 17:20 Blood Gram Stain - Final TEST NOT PERFORMED 04/21/17 16:55 Blood Blood Culture - Final NO GROWTH AFTER 5 DAYS 04/21/17 16:55 Blood Gram Stain - Final TEST NOT PERFORMED 04/21/17 21:10 Leg - Right Gram Stain - Final 04/21/17 21:10 Leg - Right Wound Culture - Final Enterobacter Cloacae Ssp Cloac Most Recent Lab Values WBC 8.6 K/uL (4.8-10.8) 04/25/17 05:30 RBC 3.53 Mil/uL (3.80-5.20) L 04/25/17 05:30 Hgb 9.1 g/dL (12.0-16.0) L 04/25/17 05:30 Hct 27.9 % (34.0-47.0) L 04/25/17 05:30 MCV 78.9 fl (81.0-99.0) L 04/25/17 05:30 MCH 25.7 pg (27.0-31.0) L 04/25/17 05:30 MCHC 32.6 g/dL (33.0-37.0) L 04/25/17 05:30 RDW 15.3 % (11.5-14.5) H 04/25/17 05:30 Plt Count 469 K/uL (130-400) H D 04/25/17 05:30 MPV 7.4 fl (7.2-11.7) 04/25/17 05:30 Neut % (Auto) 71.5 % (50.0-75.0) 04/25/17 05:30 Lymph % (Auto) 21.1 % (20.0-40.0) 04/25/17 05:30 [place] % (Auto) 5.2 % (0.0-10.0) 04/25/17 05:30 Eos % (Auto) 1.7 % (0.0-4.0) 04/25/17 05:30 Baso % (Auto) 0.5 % (0.0-2.0) 04/25/17 05:30 Neut # (Auto) 6.2 K/uL (1.8-7.0) 04/25/17 05:30 Lymph # (Auto) 1.8 K/uL (1.0-4.3) 04/25/17 05:30 [place] # (Auto) 0.4 K/uL (0.0-0.8) 04/25/17 05:30 Eos # (Auto) 0.1 K/uL (0.0-0.7) 04/25/17 05:30 Baso # (Auto) 0.0 K/uL (0.0-0.2) 04/25/17 05:30 ESR 117 mm/hr (0-20) H 04/26/17 05:55 Sodium 140 mmol/l (132-148) 04/25/17 05:30 Potassium 4.0 MMOL/L (3.6-5.0) 04/25/17 05:30 Chloride 102 mmol/L (98-107) 04/25/17 05:30 Carbon Dioxide 29 mmol/L (22-30) 04/25/17 05:30 Anion Gap 13 (10-20) 04/25/17 05:30 BUN 10 mg/dl (7-17) 04/25/17 05:30 Creatinine 1.0 mg/dl (0.7-1.2) 04/25/17 05:30 Est GFR ( Amer) > 60 04/25/17 05:30 Est GFR (Non-Af Amer) 60 04/25/17 05:30 POC Glucose (mg/dL) 127 mg/dL (65-110) H 04/27/17 10:55 Random Glucose 107 mg/dL (65-105) H 04/25/17 05:30 Calcium 9.1 mg/dL (8.4-10.2) 04/25/17 05:30 Iron 32 ug/dL (37-170) L 04/22/17 14:20 TIBC 192 ug/dL (250-450) L 04/22/17 14:20 % Saturation 17 % (20-55) L 04/22/17 14:20 Ferritin 129.0 ng/Ml (6.24-137.0) 04/22/17 14:20 Total Bilirubin 0.4 mg/dl (0.2-1.3) 04/22/17 06:00 AST 35 U/L (14-36) 04/22/17 06:00 ALT 36 U/L (9-52) 04/22/17 06:00 Alkaline Phosphatase 119 U/L (38-126) 04/22/17 06:00 C-React Prot High Sens > 15.00 mg/L (1.00-3.00) H 04/23/17 14:10 Total Protein 7.5 G/DL (6.3-8.2) 04/22/17 06:00 Albumin 3.7 g/dL (3.5-5.0) 04/22/17 06:00 Globulin 3.9 gm/dL (2.2-3.9) 04/22/17 06:00 Albumin/Globulin Ratio 0.9 (1.0-2.1) L 04/22/17 06:00 Triglycerides 247 mg/DL (0-149) H D 04/22/17 14:20 Cholesterol 193 mg/dL (0-199) 04/22/17 14:20 LDL Cholesterol Direct 112 mg/dL (0-129) 04/22/17 14:20 HDL Cholesterol 29 MG/DL (30-70) L 04/22/17 14:20 Vitamin B12 588 pg/mL (239-931) 04/22/17 14:20 Procalcitonin < 0.05 NG/ML (0.19-0.49) L 04/24/17 05:30 Urine Color Yellow (YELLOW) 04/22/17 18:40 Urine Clarity Cloudy (Clear) 04/22/17 18:40 Urine pH 6.0 (5.0-8.0) 04/22/17 18:40 Ur Specific [place] 1.016 (1.003-1.030) 04/22/17 18:40 Urine Protein Negative mg/dL (NEGATIVE) 04/22/17 18:40 Urine Glucose (UA) Neg mg/dL (Normal) 04/22/17 18:40 Urine Ketones Negative mg/dL (NEGATIVE) 04/22/17 18:40 Urine Blood Negative (NEGATIVE) 04/22/17 18:40 Urine Nitrate Negative (NEGATIVE) 04/22/17 18:40 Urine Bilirubin Negative (NEGATIVE) 04/22/17 18:40 Urine Urobilinogen 0.2-1.0 mg/dL (0.2-1.0) 04/22/17 18:40 Ur Leukocyte Esterase Neg [place]/uL (Negative) 04/22/17 18:40 Urine RBC (Auto) 2 /hpf (0-3) 04/22/17 18:40 Urine Microscopic WBC 3 /hpf (0-5) 04/22/17 18:40 Ur Squamous Epith Cells 25 /hpf (0-5) H 04/22/17 18:40 Urine Bacteria Occ (<OCC) H 04/22/17 18:40 Urine HCG, Qual Negative (NEGATIVE) 04/26/17 09:55 Stool Occult Blood Negative (NEGATIVE) 04/22/17 18:40 Vancomycin Trough 13.8 ug/mL (5.0-10.0) H 04/26/17 07:58 HIV 1&2 Ag/Ab, 4th Gen Nonreactive (Nonreactive) 04/25/17 12:10 - Hospital Course Hospital Course: 47 y/o F with PMH of DM2, s/p Right Ankle fracture and right ankle orif 04/07/17 admitted for infected wound of right ankle. Elevated ESR and MRI on 04/23; possible OM vs avascular necrosis. Patient continued on Vancomycin IV and Zosyn IV, Wound Cx 04/21: Enterobacter Colacae and daily wound care. Patient got PICCline and sent home with Vanco 1.5gm IV and Cipro PO. Patient to follow up with ID and Podiatry as outpatient. - Date & Time of H&P Date of H&P: 04/21/17 Time of H&P: 19:14 Discharge Exam - Head Exam Head Exam: ATRAUMATIC - Eye Exam Eye Exam: Normal appearance Pupil Exam: NORMAL ACCOMODATION - ENT Exam ENT Exam: Mucous Membranes Moist - Respiratory Exam Respiratory Exam: NORMAL BREATHING PATTERN - Cardiovascular Exam Cardiovascular Exam: Clicks - GI/Abdominal Exam GI & Abdominal Exam: Normal Bowel Sounds - Extremities Exam Additional comments: Right ankle covered with dressing Toes sensory intact Pulses are palpable b/l - Back Exam Back exam: NORMAL INSPECTION - Neurological Exam Neurological exam: Alert, CN II-XII Intact, Oriented x3 - Psychiatric Exam Psychiatric exam: Normal Affect - Skin Skin Exam: Normal Color Discharge Plan - Discharge Medications Prescriptions: Ciprofloxacin [Cipro] 500 mg PO Q12H #84 tab Vancomycin 1 GM [Vancomycin 1GM in Normal Saline Addvantage] 1.5 gm IV DAILY 42 Days bag - Follow Up Plan Condition: IMPROVED Disposition: HOME/ ROUTINE Instructions: Peripherally-Inserted Central Catheter (DC), Wound Infection Additional Instructions: infusion de antibioticos por 6 semanas: Regresar a piso 7 de lunes a viernes para infusion de antibiotico los sabados y elana ir a nisha de emergencia para continuar infusion de antibioticos hacer maria del carmen con doctor en la clinica dentro de 7-10 torres Referrals: [facility] [Outside] Orlando Hanley MD [Staff Provider] - Ruby,Prasanna Guzman MD [Family Provider] - Laura Wisdom DPM [Staff Provider] -
[2017-04-27 14:06] VITALS: PULSE 86
== END 2017-04-27 17:35 | disposition home or self-care (01) | DRG 863 ==
LOC: H.ER 14:06 → H.ERHOLD 17:53 → H.MEDSURG1 21:53
PROVIDERS: ADMIT Family Medicine Geriatric Medicine; ATTEND Family Medicine Geriatric Medicine
PROC: 02HV33Z Insertion of Infusion Device into Superior Vena Cava, Percutaneous Approach (ICD-10-PCS; principal; 2017-04-25)
PROC: B518ZZA Fluoroscopy of Superior Vena Cava, Guidance (ICD-10-PCS; 2017-04-25)
PROC: B548ZZA Ultrasonography of Superior Vena Cava, Guidance (ICD-10-PCS; 2017-04-25)
DX: T81.4XXA Infection following a procedure, initial encounter (principal); E11.22 Type 2 diabetes mellitus with diabetic chronic kidney disease; D64.9 Anemia, unspecified; E66.9 Obesity, unspecified; Z79.84 Long term (current) use of oral hypoglycemic drugs; Z87.442 Personal history of urinary calculi; Z90.49 Acquired absence of other specified parts of digestive tract; Z68.34 Body mass index [BMI] 34.0-34.9, adult; K82.9 Disease of gallbladder, unspecified; S82.851D Displaced trimalleolar fracture of right lower leg, subsequent encounter for closed fracture with routine healing; X58.XXXD Exposure to other specified factors, subsequent encounter; R19.7 Diarrhea, unspecified; I12.9 Hypertensive chronic kidney disease with stage 1 through stage 4 chronic kidney disease, or unspecified chronic kidney disease; N18.9 Chronic kidney disease, unspecified

== ENCOUNTER 2017-05-24 15:10 | Emergency (ER) | payer SELFPAY ==
[2017-05-24 15:11] VITALS: BMI 32.8
[2017-05-24 15:18] VITALS: BP 126/70; PULSE 87; RESP 16; TEMP 98.6; O2SAT 99
--- NOTE | 2017-05-24 18:51 | RAD ---
PROCEDURE: Right Ankle Radiographs. HISTORY: trauma COMPARISON: 05/11/2017 FINDINGS: BONES: Stable position of major fracture fragments distal tibia and fibula. No evidence of orthopedic hardware failure. JOINTS: Normal. No osteoarthritis. Ankle mortise maintained. Talar dome intact SOFT TISSUES: Normal. OTHER FINDINGS: None. IMPRESSION: No significant interval change compared to the prior examination(s). Limitations of the current study: Detail obscured by overlying fiberglass cast.
--- NOTE | 2017-05-24 18:52 | RAD ---
PROCEDURE: Right Hip Radiographs. HISTORY: trauma COMPARISON: None. FINDINGS: BONES: Normal. No fracture. JOINTS: Normal. SOFT TISSUES: Normal. OTHER FINDINGS: None. IMPRESSION: No acute findings related to/accounting for the clinical presentation.
--- NOTE | 2017-05-24 18:52 | RAD ---
PROCEDURE: Radiographs of the right tibia and fibula. HISTORY: trauma COMPARISON: None available. TECHNIQUE: Frontal and lateral views obtained. FINDINGS: BONES: Stable position of orthopedic hardware distal right tibia and fibula. No evidence of orthopedic hardware failure. JOINT SPACES: Unremarkable. OTHER FINDINGS: None. IMPRESSION: No acute findings related to/accounting for the clinical presentation.
--- NOTE | 2017-05-24 19:20 | ED PDOC ---
HPI: General Adult Time Seen by Provider: 05/24/17 15:48 Chief Complaint (Nursing): Lower Extremity Problem/Injury History Per: Patient Additional Complaint(s): Pt. states earlier today she slipped and fell while ambulating with her crutches while in [facility]. She fell down on her R side injuring her R flank area, R hip, and R knee. Of note, pt. currently his R lower extremity in a posterior splint as she is being treated for a fx and osteomyelitis. Denies SOB, chest pain, hematuria, dysuria, N/V, numbness, tingling, head injury. Past Medical History Reviewed: Historical Data, Nursing Documentation, Vital Signs Vital Signs: Last Vital Signs Temp 98.6 F 05/24/17 15:15 Pulse 87 05/24/17 15:15 Resp 16 05/24/17 15:15 BP 126/70 05/24/17 15:15 Pulse Ox 99 05/24/17 19:22 - Medical History PMH: Fractures (rt ankle), Gall Bladder Disease, Kidney Stones (questionable hx) , Chronic Kidney Disease - Surgical History Surgical History: Cholecystectomy, - Family History Family History: States: No Known Family Hx - Home Medications Home Medications: Ambulatory Orders Medication Instructions Recorded metFORMIN [glucOPHAGE] 500 mg PO BID 04/05/17 Ciprofloxacin [Cipro] 500 mg PO Q12H #84 tab 04/27/17 Ibuprofen [Motrin Tab] 600 mg PO Q6H PRN tab 04/27/17 Vancomycin 1 GM [Vancomycin 1GM in 1.5 gm IV DAILY 42 Days bag 04/27/17 Normal Saline Addvantage] - Allergies Allergies/Adverse Reactions: Allergies Allergy/AdvReac Type Severity Reaction Status Date / Time No Known Allergies Allergy Verified 05/24/17 15:15 Review of Systems ROS Statement: Except As Marked, All Systems Reviewed And Found Negative Physical Exam - Physical Exam Appears: Positive for: Well, Non-toxic, No Acute Distress Skin: Positive for: Normal Color, Warm. Negative for: Rash Eye Exam: Positive for: Normal appearance Cardiovascular/Chest: Positive for: Regular Rate, Rhythm, Chest Non Tender Respiratory: Positive for: CNT, Normal Breath Sounds Gastrointestinal/Abdominal: Positive for: Normal Exam, Soft, Other (no ecchymosis). Negative for: Tenderness Back: Positive for: Normal Inspection, Other (no ecchymosis to back). Negative for: L CVA Tenderness, R CVA Tenderness Extremity: Positive for: Other (R lateral hip tenderness without deformity; R knee without tenderness or swelling; R leg in posterior short leg splint which is clean dry and intact; cap refill < 2 seconds on RLE) Neurologic/Psych: Positive for: Alert, Oriented. Negative for: Aphasia, Facial Droop - Laboratory Results Urine dip results: Positive for: Blood (trace). Negative for: Leukocyte Esterase, Nitrate - ECG O2 Sat by Pulse Oximetry: 99 - Progress ED Course And Treament: X-rays ordered. Pt. refused pain meds. R ankle, R tib/fib, R hip/pelvic x-rays: hardware in place; no fx UA: +small blood. CT abd/pelvis w/ IV contrast, labs ordered. Disposition - Clinical Impression Clinical Impression: Leg injury, Injury of flank - Patient ED Disposition Is Patient to be Admitted: Transfer of Care (Signed out to Kosta MCCORD pending labs and CT results) - Disposition Disposition Time: 20:25 Condition: STABLE Forms: [employer] (Jamaican)
[2017-05-24 19:27] LABS: SQUAMOUS EPITHIAL 2 /hpf (0-5); URINE BACTERIA RARE (<OCC); URINE BILIRUBIN NEGATIVE (NEGATIVE); URINE BLOOD SMALL (NEGATIVE); URINE CLARITY SLIGHTY-CLOUDY (Clear); URINE COLOR STRAW (YELLOW); URINE GLUCOSE (UA) NEG (Normal); URINE LEUKOCYTE ESTERASE NEG Leu/uL (Negative); URINE PROTEIN NEGATIVE (NEGATIVE); URINE UROBILINOGEN 0.2-1.0 mg/dL (0.2-1.0)
[2017-05-24 20:46] LABS: ALB/GLOB RATIO 0.9 (1.0-2.1); ALBUMIN 3.9 g/dL (3.5-5.0); ALT/SGPT 33 U/L (9-52); AST/SGOT 20 U/L (14-36); BLOOD UREA NITROGEN 11 mg/dl (7-17); CALCIUM 9.2 mg/dL (8.4-10.2); GFR AFRICAN-AMERICAN > 60; GFR NON-AFRICAN AMERICAN > 60
[2017-05-24 21:09] LABS: BASO # 0.1 K/uL (0.0-0.2); BASO % 2.1 % (0.0-2.0); EOS # 0.3 K/uL (0.0-0.7); EOS % 10.3 % (0.0-4.0); HEMOGLOBIN 10.1 g/dL (12.0-16.0); LYMPH # 1.5 K/uL (1.0-4.3); LYMPH % 52.4 % (20.0-40.0); MEAN CELL VOLUME 75.7 fl (81.0-99.0); MEAN CORPUSCULAR HEMOGLOBIN 24.9 pg (27.0-31.0); MEAN CORPUSCULAR HGB CONC 32.9 g/dL (33.0-37.0); MEAN PLATELET VOLUME 8.2 fl (7.2-11.7); MONO # 0.5 K/uL (0.0-0.8); MONO % 17.5 % (0.0-10.0); NEUT # 0.5 K/uL (1.8-7.0); NEUT % 17.7 % (50.0-75.0); NRBC % 0.4 % (0.0-0.0); RBC 4.05 Mil/uL (3.80-5.20); RED CELL DISTRIBUTION WIDTH 15.6 % (11.5-14.5); WHITE BLOOD COUNT 2.8 K/uL (4.8-10.8)
[2017-05-24] MEDS ORDERED: Iohexol 300 100 ML IJ ONE (21:40)
--- NOTE | 2017-05-24 23:24 | CT ---
EXAM: CT Abdomen and Pelvis With Intravenous Contrast EXAM DATE/TIME: 05/24/2017 7:38 PM CLINICAL HISTORY: 47 years old, female; Injury or trauma; Fall; Initial encounter; Blunt; Ruq; Injury date: 05-24-2017; Prior surgery; Surgery date: 6+ months; Surgery type: Gb removed. ; Additional info: Trauma, r flank pain, hematuria TECHNIQUE: Axial computed tomography images of the abdomen and pelvis with intravenous contrast. All CT scans at this facility use one or more dose reduction techniques, viz.: automated exposure control; ma/kV adjustment per patient size (including targeted exams where dose is matched to indication; i.e. head); or iterative reconstruction technique. Coronal and sagittal reformatted images were created and reviewed. CONTRAST: 95 mL of [id number] administered intravenously. COMPARISON: CT - ABD PELVIS PO IV CONTRAST 2016-10-22 21:39 FINDINGS: Lower thorax: Heart size is normal. There is atelectasis and scarring at the lung bases. There is a small hiatal hernia ABDOMEN: Liver: There is fatty infiltration of the liver. Gallbladder and bile ducts: Gallbladder is absent. Common duct is prominent. Pancreas: Pancreas is mildly atrophic. Spleen: unremarkable Adrenals: unremarkable Kidneys and ureters: There is a tiny nonobstructing left renal stone.Kidneys and ureters are otherwise unremarkable. Stomach and bowel: Stomach is partially distended. Rotation is normal. There is no obstruction. Ileocecal region is unremarkable. There is diverticulosis. Appendix: See stomach and bowel PELVIS: Bladder: unremarkable Reproductive: Uterus and adnexal structures are unremarkable. ABDOMEN and PELVIS: Intraperitoneal space: There is no free air or free fluid. Bones/joints: There are degenerative changes in the osseus structures. Soft tissues: There is a fat-containing umbilical hernia. Vasculature: There are vascular calcifications. Lymph nodes: There are mildly enlarged para-aortic and common iliac nodes IMPRESSION: No acute solid visceral or bowel injury, no fracture seen; fatty liver, cholecystectomy, tiny nonobstructing left renal stone, no ureteral stones or hydronephrosis; adenopathy Additional nonemergent findings as described above.
--- NOTE | 2017-05-25 00:18 | ED PDOC ---
- Laboratory Results Result Diagrams: 05/24/17 20:10 05/24/17 20:04 - ECG O2 Sat by Pulse Oximetry: 99 - Progress ED Course And Treament: Case endorsed to check writer salesperson from Francisco MCCORD pending CT, re-eval EXAM: CT Abdomen and Pelvis With Intravenous Contrast EXAM DATE/TIME: 05/24/2017 7:38 PM CLINICAL HISTORY: 47 years old, female; Injury or trauma; Fall; Initial encounter; Blunt; Ruq; Injury date: 05-24-2017; Prior surgery; Surgery date: 6+ months; Surgery type: Gb removed. ; Additional info: Trauma, r flank pain, hematuria TECHNIQUE: Axial computed tomography images of the abdomen and pelvis with intravenous contrast. All CT scans at this facility use one or more dose reduction techniques, viz.: automated exposure control; ma/kV adjustment per patient size (including targeted exams where dose is matched to indication; i.e. head); or iterative reconstruction technique. Coronal and sagittal reformatted images were created and reviewed. CONTRAST: 95 mL of [id number] administered intravenously. COMPARISON: CT - ABD PELVIS PO IV CONTRAST 2016-10-22 21:39 FINDINGS: Lower thorax: Heart size is normal. There is atelectasis and scarring at the lung bases. There is a small hiatal hernia ABDOMEN: Liver: There is fatty infiltration of the liver. Gallbladder and bile ducts: Gallbladder is absent. Common duct is prominent. Pancreas: Pancreas is mildly atrophic. Spleen: unremarkable Adrenals: unremarkable Kidneys and ureters: There is a tiny nonobstructing left renal stone.Kidneys and ureters are otherwise unremarkable. Stomach and bowel: Stomach is partially distended. Rotation is normal. There is no obstruction. Ileocecal region is unremarkable. There is diverticulosis. Appendix: See stomach and bowel PELVIS: Bladder: unremarkable Reproductive: Uterus and adnexal structures are unremarkable. ABDOMEN and PELVIS: Intraperitoneal space: There is no free air or free fluid. Bones/joints: There are degenerative changes in the osseus structures. Soft tissues: There is a fat-containing umbilical hernia. Vasculature: There are vascular calcifications. Lymph nodes: There are mildly enlarged para-aortic and common iliac nodes IMPRESSION: No acute solid visceral or bowel injury, no fracture seen; fatty liver, cholecystectomy, tiny nonobstructing left renal stone, no ureteral stones or hydronephrosis; adenopathy Additional nonemergent findings as described above. On re-eval, patient resting comfortably, states she is feeling better. Patient educated on findings, discharged with instructions to follow up as scheduled. Advised RICE. NSAIDs. Return precautions given. Disposition - Clinical Impression Clinical Impression: Leg injury, Injury of flank - POA Present On Arrival: None - Disposition Disposition: Routine/Home Disposition Time: 00:18 Condition: IMPROVED Instructions: Contusion (DC) Forms: [facility] (Icelandic) Print Language: BENGALI
== END 2017-05-25 00:29 | disposition home or self-care (01) ==
LOC: H.ER 15:10
DX: S39.91XA Unspecified injury of abdomen, initial encounter (principal); S79.911A Unspecified injury of right hip, initial encounter; M79.604 Pain in right leg; W01.0XXA Fall on same level from slipping, tripping and stumbling without subsequent striking against object, initial encounter; Y92.238 Other place in hospital as the place of occurrence of the external cause; Z79.84 Long term (current) use of oral hypoglycemic drugs; Z87.442 Personal history of urinary calculi; Z90.49 Acquired absence of other specified parts of digestive tract
CPT/HCPCS: 73501; 73590; 73610; 74177; 80053; 81003; 81025; 85025; 99284; Q9967

== ENCOUNTER 2017-10-11 16:29 | Emergency (ER) | payer SELFPAY ==
[2017-10-11 16:29] VITALS: BMI 31.8
[2017-10-11 16:45] VITALS: BP 134/74; PULSE 104; RESP 16; TEMP 99.8; O2SAT 97
--- NOTE | 2017-10-11 17:39 | CP.PCM.CON ---
History of Present Illness - History of Present Illness History of Present Illness: Podiatry Progress Note for Dr. Cortez: 47 yo female was seen and evaluated in the ED for right ankle pain s/p right ankle ORIF after trimalleolar fracture in March (DOS: 04/07/2017). She states that she has been following up in clinic with Dr. Cortez for her post-op appointments. Her last visit to clinic was on 10/06/2017 and she was given a prescription for continued physical therapy. Today, around four hours ago she states that she was unable to bear weight to her right lower extremity. She denies any trauma to the area or any inciting incidences. She rates the pain a 9 /10 and she switched from her cane to crutches before she brought herself into the ED. Patient is accompanied by her friend. Denies N/V/F/SOB/CP. Denies any other pedal complaints at this time. . Review of Systems - Review of Systems Review of Systems: As per HPI Past Patient History - Past Medical History & Family History Past Medical History?: Yes - Past Social History Smoking Status: Never Smoked - CARDIAC Hx Cardiac Disorders: No - PULMONARY Hx Respiratory Disorders: No - NEUROLOGICAL Hx Neurological Disorder: No - HEENT Hx HEENT Problems: No - RENAL Hx Chronic Kidney Disease: Yes Hx Kidney Stones: Yes (questionable hx) - ENDOCRINE/METABOLIC Hx Endocrine Disorders: Yes Hx Diabetes Mellitus Type 2: Yes - HEMATOLOGICAL/ONCOLOGICAL Hx Blood Disorders: No - INTEGUMENTARY Hx Dermatological Problems: No - MUSCULOSKELETAL/RHEUMATOLOGICAL Hx Fractures: Yes (rt ankle) - GASTROINTESTINAL Hx Gall Bladder Disease: Yes - GENITOURINARY/GYNECOLOGICAL Hx Genitourinary Disorders: No - PSYCHIATRIC Hx Psychophysiologic Disorder: No Hx Emotional Abuse: No Hx Physical Abuse: No Hx Substance Use: No - SURGICAL HISTORY Hx Cholecystectomy: Yes - ANESTHESIA Hx Anesthesia: Yes Hx Anesthesia Reactions: No Hx Malignant Hyperthermia: No Meds Allergies/Adverse Reactions: Allergies Allergy/AdvReac Type Severity Reaction Status Date / Time No Known Allergies Allergy Verified 10/11/17 16:45 Physical Exam - Constitutional Appears: Well, Non-toxic, No Acute Distress - Head Exam Head Exam: ATRAUMATIC, NORMOCEPHALIC - Extremities Exam Additional comments: RLE focused exam: Vasc: DP pulse 2/4, PT pulse 1/4, capillary refill <3 seconds to all 5 digits, edema noted to medial aspect of right ankle Ortho: Pain upon palpation to medial malleolar region, tenderness to palpation to lateral malleolus, tenderness to palpation of anterior ankle Derm: scar formation to medial and lateral malleoli from previous trimalleolar surgery, no open lesions, no erythema, no clinical signs of infection present Neuro: gross and protective sensation intact Ortho: pain on active and passive dorsiflexion and plantarflexion of right ankle , limited STJ and ankle joint motion at the right - Neurological Exam Neurological exam: Alert, Oriented x3 - Psychiatric Exam Psychiatric exam: Normal Affect, Normal Mood Results - Vital Signs Recent Vital Signs: Last Vital Signs Temp 99.8 F H 10/11/17 16:37 Pulse 104 H 10/11/17 16:37 Resp 16 10/11/17 16:37 BP 134/74 10/11/17 16:37 Pulse Ox 97 10/11/17 16:37 Assessment & Plan - Assessment and Plan (Free Text) Assessment: 47 yo female was seen and evaluated in the ED for right ankle pain s/p right ankle ORIF after trimalleolar fracture in March (DOS: 04/07/2017). Plan: Patient seen and evaluated with all questions and concerns addressed Patient discussed in detail with Dr. Cortez Right foot and ankle x-rays ordered and reviewed; No acute osseous changes, hardware intact without hardware failure Discussed the option of giving the patient a corticosteroid injection to right ankle, patient refusing at this time and wants to reconsider steroid injection in clinic if pain continues LIN applied to right ankle, encouraged patient to rest, elevate, and ice the right lower extremity WBAT in sneaker, patient did not want surgical shoe at this time, with use of crutches for stability F/U in Dr. Cortez clinic on Wednesday Thank you for the consult - Date & Time Date: 10/11/17 Time: 17:45
--- NOTE | 2017-10-11 18:16 | ED PDOC ---
Lower Extremity Pain/Injury Time Seen by Provider: 10/11/17 16:50 Chief Complaint (Nursing): Lower Extremity Problem/Injury Chief Complaint (Provider): Lower Extremity Problem/Injury History Per: Patient History/Exam Limitations: no limitations Onset/Duration Of Symptoms: Days (today) Current Symptoms Are (Timing): Still Present Additional Complaint(s): 47 year old female with a history of kidney stones, fractures, chronic kidney disease, and gall bladder disease presents to the ED with atraumatic ankle pain that developed after she woke up this morning. Patient reports she had ankle surgery performed to fix trimalleolar fracture back in March by Dr. Cortez. She denies no new trauma and is compliant with physical therapy. Patient denies fever, numbness, tingling or any other medical complaints PMD: Dr. Beltran Past Medical History Reviewed: Historical Data, Nursing Documentation, Vital Signs Vital Signs: Last Vital Signs Temp 99.8 F H 10/11/17 16:37 Pulse 104 H 10/11/17 16:37 Resp 16 10/11/17 16:37 BP 134/74 10/11/17 16:37 Pulse Ox 97 10/11/17 16:37 - Medical History PMH: Fractures (rt ankle), Gall Bladder Disease, Kidney Stones (questionable hx) , Chronic Kidney Disease - Surgical History Surgical History: Cholecystectomy, Other surgeries: trimalleolar fracture repair - Family History Family History: States: Unknown Family Hx - Home Medications Home Medications: Ambulatory Orders Medication Instructions Recorded metFORMIN [glucOPHAGE] 500 mg PO BID 04/05/17 Ciprofloxacin [Cipro] 500 mg PO Q12H #84 tab 04/27/17 Ibuprofen [Motrin Tab] 600 mg PO Q6H PRN tab 04/27/17 Vancomycin 1 GM [Vancomycin 1GM in 1.5 gm IV DAILY 42 Days bag 04/27/17 Normal Saline Addvantage] - Allergies Allergies/Adverse Reactions: Allergies Allergy/AdvReac Type Severity Reaction Status Date / Time No Known Allergies Allergy Verified 10/11/17 16:45 Review of Systems ROS Statement: Except As Marked, All Systems Reviewed And Found Negative Musculoskeletal: Positive for: Other (right ankle pain ) Physical Exam - Reviewed Nursing Documentation Reviewed: Yes Vital Signs Reviewed: Yes - Physical Exam Appears: Positive for: No Acute Distress Head Exam: Positive for: ATRAUMATIC Skin: Positive for: Normal Color, Warm, DRY Eye Exam: Positive for: Normal appearance, EOMI, PERRL Pulses-Dorsalis Pedis (L): 2+ Pulses-Dorsalis Pedis (R): 2+ Extremity: Positive for: Capillary Refill (less than 2 seconds), Other (Right lower extremity: old surgical scars noted, no warmth, no erythema, no break in skin integrity, no ulcer, no bilateral ankle tenderness). Negative for: Calf Tenderness (bilterally) Neurologic/Psych: Positive for: Alert, Oriented - ECG O2 Sat by Pulse Oximetry: 97 (RA) Pulse Ox Interpretation: Normal Medical Decision Making Medical Decision Making: Time: 17:00 Initial Plan: --Right ankle XR --Right foot XR --Case discussed with Rachel podiatry resident, who evaluated patient in the ED. Scribe Attestation: Documented by Yoanna Mo, acting as a scribe for Jorgito Singh PA-C. ~ Provider Scribe Attestation: All medical record entries made by the Scribe were at my direction and personally dictated by me. I have reviewed the chart and agree that the record accurately reflects my personal performance of the history, physical exam, medical decision making, and the department course for this patient. I have also personally directed, reviewed, and agree with the discharge instructions and disposition. Disposition - Clinical Impression Clinical Impression: Ankle pain - Patient ED Disposition Is Patient to be Admitted: No - Disposition Referrals: Podiatry Clinic [Outside] Major Cortez MD [Staff Provider] - Disposition: Routine/Home Disposition Time: 18:40 Condition: STABLE Additional Instructions: PAUL MAX, thank you for letting us take care of you today. Your provider was Memo Cavazos III, DO and you were treated for RT FOOT PAIN. The emergency medical care you received today was directed at your acute symptoms. If you were prescribed any medication, please fill it and take as directed. It may take several days for your symptoms to resolve. Return to the Emergency Department if your symptoms worsen, do not improve, or if you have any other problems. Please contact your doctor or call one of the physicians/clinics you have been referred to that are listed on the Patient Visit Information form that is included in your discharge packet. Bring any paperwork you were given at discharge with you along with any medications you are taking to your follow up visit. Our treatment cannot replace ongoing medical care by a primary care provider outside of the emergency department. Thank you for allowing the [email or web address] team to be part of your care today. If you had an X-Ray or CT scan: A Radiologist will review the ED reading if any change in treatment is needed we will contact you. If you had a blood, urine, or wound culture: It will take several days for the results, if any change in treatment is needed we will contact you. If you had an STI test: It will take 48 hours for the results. Please call after 1 week if you have not heard back. Instructions: Joint Pain Forms: [employer] (Ukrainian) Print Language: KINYARWANDA
--- NOTE | 2017-10-11 18:24 | RAD ---
Date of service: 10/11/2017 PROCEDURE: Right Ankle Radiographs. HISTORY: pain COMPARISON: 07/28/2017. FINDINGS: BONES: No acute fractures. No evidence of orthopedic hardware failure. Small plantar calcaneal spur. JOINTS: Degenerative/ posttraumatic changes about the ankle primarily talotibial and talofibular joints as well as talar calcaneal joint. SOFT TISSUES: Normal. OTHER FINDINGS: None. IMPRESSION: No acute findings or significant interval changes.
--- NOTE | 2017-10-11 18:47 | RAD ---
Date of service: 10/11/2017 PROCEDURE: Right Foot Radiographs. HISTORY: Pain. No history of trauma COMPARISON: 04/21/2017 FINDINGS: BONES: Diffuse osteopenia. JOINTS: Degenerative or posttraumatic changes incompletely visualized right ankle. SOFT TISSUES: Normal. OTHER FINDINGS: None. IMPRESSION: No acute findings related to/accounting for the clinical presentation.
== END 2017-10-11 22:37 | disposition home or self-care (01) ==
LOC: H.ER 16:29
DX: M25.571 Pain in right ankle and joints of right foot (principal); E11.9 Type 2 diabetes mellitus without complications; Z79.84 Long term (current) use of oral hypoglycemic drugs

== ENCOUNTER 2017-11-09 09:58 | Day surgery (SDC) | payer SELFPAY ==
[2017-06-06 09:04] VITALS: BMI 31.8
[2017-11-09] MEDS ORDERED: Lactated Ringer's 500 ML IV ONE (10:15)
[2017-11-09] MEDS ORDERED: Propofol 10 mg/ml Inj (20 ML) ONE (10:59)
[2017-11-09 11:39] VITALS: BP 111/65; PULSE 71; RESP 16; TEMP 98; O2SAT 98
== END 2017-11-09 11:44 | disposition home or self-care (01) ==
LOC: H.ENDO 09:58
PROVIDERS: ATTEND Internal Medicine Gastroenterology
DX: K62.5 Hemorrhage of anus and rectum (principal); K57.30 Diverticulosis of large intestine without perforation or abscess without bleeding; K64.0 First degree hemorrhoids; E11.9 Type 2 diabetes mellitus without complications
CPT/HCPCS: 45378; J2001; J2704; J7120

== ENCOUNTER 2017-12-03 11:21 | Day surgery (SDC) | payer SELFPAY ==
[2017-11-30 11:04] VITALS: BMI 33.5
[2017-12-03] MEDS ORDERED: Bupivacaine 0.25% Inj(30mL) IJ ONE ×3 (11:49→19:47)
[2017-12-03] MEDS ORDERED: Lidocaine 1% Inj (20ml) IJ ONE (11:49)
--- NOTE | 2017-12-03 11:55 | CP.PCM.PN ---
Subjective - Date & Time of Evaluation Date of Evaluation: 12/03/17 Time of Evaluation: 11:51 - Subjective Subjective: Podiatry progress note for Dr. Love 47 y/o female seen and evaluated at bedside in [facility] for surgery to the right ankle. Patient states she last ate or drank last night. Patient ambulated with a [employer]. Patient states she sustained right ankle trauma while walking in the snow in March of 2017. Patient's first surgery was in March and is not having discomfort due to the hardware. Patient states her pain is worsened with ambulation and weight-bearing. Patient states she has history of diabetes and takes Metformin. PMHx: Diabetes Medications: Metformin PSHx: right ankle surgery Social Hx: patient denies smoking tobacco or drinking alcohol Objective - Vital Signs/Intake and Output Vital Signs (last 24 hours): Temp Pulse Resp BP Pulse Ox 98.1 F 68 20 137/76 98 11/30/17 10:32 11/30/17 10:32 11/30/17 10:32 11/30/17 10:32 11/30/17 10:32 - Constitutional Appears: Well, Non-toxic, No Acute Distress - Head Exam Head Exam: ATRAUMATIC, NORMOCEPHALIC - Extremities Exam Additional comments: Lower extremity exam VASC: DP and PT 2/4 bilaterally, CFT less than 3 seconds X 10, TG warm to cool, minimal right ankle edema noted NEURO: Epicritic and protective sensation intact DERM: well-healed surgical scars noted medially and laterally, no open wounds, no clinical signs of infection ORTHO: pain on palpation over the medial scar, and pain with ankle range of motion, patient guarding due to ankle range of motion pain, minimal pain laterally, MSK 4/5 due to guarding - Neurological Exam Neurological Exam: Alert, Awake, Oriented x3 - Psychiatric Exam Psychiatric exam: Normal Affect, Normal Mood Assessment and Plan - Assessment and Plan (Free Text) Assessment: 47 y/o female seen and evaluated in [facility] for surgery to the right ankle Plan: Pt was seen and examined in [facility] Pt NPO status was confirmed All pre-op testing and clearance in chart Pt has exhausted all conservative treatment at this time and is opting for surgical intervention Pt was explained procedure and post-operative course All pt's questions were answered to satisfaction No guarantees were made Pt understands all risks, benefits and complications of procedure Pt will follow-up with Dr. Love within 1 week of surgery
[2017-12-03] MEDS ORDERED: Sodium Chloride 0.9% 1,000 ML IV SCH (12:00)
[2017-12-03] MEDS ORDERED: ceFAZolin 2 GM in Sodium Chloride 0.9% 100 ML IVPB ONE (12:00)
--- NOTE | 2017-12-03 12:02 | CP.SDSHP ---
Same Day Surgery H & P - History Proposed Procedure: Right ankle removal of hardware with harvest of bone from foot or ankle Pre-Op Diagnosis: Right Ankle pain due to hardware - Previous Medical/Surgical History Pain: 4.Moderate Pain - Allergies Allergies: Allergies No Known Allergies Allergy (Verified 11/09/17 10:29) - Physical Exam Neuro: WNL - {Optional Preform as Required} Integument: WNL - Impression Pt. Evaluated Today:Candidate for Anesthesia & Procedure: Yes - Date & Time Date: 12/03/17 Time: 12:02 Short Stay Discharge - Short Stay Discharge Admitting Diagnosis/Reason for Visit: [id number] Disposition: HOME/ ROUTINE Additional Instructions (Diet, Activity): -Patient in good/stable condition for discharge home -Pt to resume medications per medical reconciliation -Resume regular diet Please keep dressing clean, dry, & intact to surgical site -Use plastic bag over bandage for showering -Wear post op shoe at all times when ambulating -Call clinic if you see signs of infection (redness, swelling, malodor) -Please make an appointment to see Dr. Love in office/clinic within 1 week for post-op check Progress Note/Discharge Note with Instructions: - Patient evaluated bedside in recovery s/p surgical procedure. - After surgical procedure patient in NAD - (+) Void, (+) Appetite - Capillary refill time <3s and NVSI intact. - Patient denies complaints at this time - Post operative instructions and plan of care explained to patient at length. - Pt. acknowledges understanding. - Patient stable for DC per podiatric surgery
[2017-12-03] MEDS ORDERED: Propofol 10 mg/ml Inj (20 ML) ONE (17:08)
[2017-12-03] MEDS ORDERED: Midazolam 2 MG/2 ML VIAL ONE (17:08)
[2017-12-03] MEDS ORDERED: Lidocaine 2% Jelly (5 ml) TOP ONE (17:13)
[2017-12-03] MEDS ORDERED: Oxycodone/Acetaminophen 5/325 mg Tab PO PRN ×2 (20:03)
--- NOTE | 2017-12-03 20:07 | PCM.SURG1 ---
Surgeon's Initial Post Op Note - Surgeon's Notes Surgeon: Dr. Love, DPM [employer] Operator: Dr. Miranda, PGY3, Dr. Hamilton, PGY3 Type of Anesthesia: General LMA, Local Anesthesia Administered By: Dr. Prieto Pre-Operative Diagnosis: 1) Right ankle painful hardware, 2) right ankle post- traumatic arthritis Operative Findings: see dictation. I: pre-op 27 cc 0.25% Marcaine plain, post- op 15 cc 0.25% Marcaine plain. M: 2-0 Vicryl, 4-0 Vicryl, 4-0 Prolene Post-Operative Diagnosis: same as above Operation Performed: 1) Right foot removal of hardware 2) Flouroscopy Specimen/Specimens Removed: none Estimated Blood Loss: EBL {In ML}: 20 Blood Products Given: N/A Drains Used: No Drains Post-Op Condition: Good Date of Surgery/Procedure: 12/03/17 Time of Surgery/Procedure: 20:07
[2017-12-03] MEDS ORDERED: Lactated Ringer's 1,000 ML IV SCH (20:15)
[2017-12-03 23:38] VITALS: BP 124/77; PULSE 81; RESP 18; TEMP 98.9; O2SAT 97
--- NOTE | 2017-12-04 17:18 | RAD ---
Date of service: 12/03/2017 PROCEDURE: Right Ankle Radiographs. HISTORY: s/p right ankle surgery COMPARISON: Right ankle radiographs dated 10/11/2017 FINDINGS: Distal right lower extremity cast limits evaluation of fine bony detail. Previously seen distal fibular and tibial hardware has been removed. There is diffuse osteopenia. No acute fracture is evident. No other significant change is seen. IMPRESSION: Interval removal of right ankle hardware. No new fracture or other significant interval change.
--- NOTE | 2017-12-04 20:52 | OP ---
PROCEDURE DATE: 12/03/2017 PREOPERATIVE DIAGNOSES: 1. Right ankle painful surgical hardware. 2. Right ankle posttraumatic arthritis. POSTOPERATIVE DIAGNOSES: 1. Right ankle painful surgical hardware. 2. Right ankle posttraumatic arthritis. PROCEDURES PERFORMED: 1. Right ankle removal of surgical hardware. 2. Fluoroscopy. PRIMARY SURGEON: Catrachita Love DPM PRIMARY LOOM TECHNICIAN: Kaitlin Miranda, PGY-3. SECONDARY LOOM TECHNICIAN: Catrachita Hamilton, PGY-3. ANESTHESIOLOGIST: Sohan Prieto MD ANESTHESIA TYPE: General LMA with local. INDICATIONS: The patient is a 47-year-old female with the above-stated diagnosis. The patient has exhausted all conservative treatment options prior to this point and is now in need of surgical intervention. The patient signed the surgical consent after careful explanation of risks, benefits, complications, and potential alternatives to the proposed surgical procedures. No guarantees were either given nor employed. All the patient's questions were answered to her satisfaction. PREPARATION: The patient's n.p.o. status was confirmed prior to bringing the patient to the operating room. The patient was brought to the operating room and placed on the operating room table in a supine position. Once the general anesthesia was confirmed to have been achieved, the patient received a well-padded pneumatic tourniquet at the level of the right thigh, which was set at 350 mmHg to be inflated once the procedure began. The patient then received an ipsilateral . The patient then received a total of 27 mL of 0.25% Marcaine plain in a local block type fashion to the patient's right ankle. Once local anesthetic was confirmed to have been achieved, the patient's right lower extremity was then prepped and draped in the usual sterile manner. Limb was exsanguinated, tourniquet was inflated and the procedure began. DESCRIPTION OF PROCEDURE: Right ankle removal of painful surgical hardware. The patient was then manipulated into a left side lazy lateral decubitus position to allow better visualization and access to the posterolateral aspect of the patient's right lower extremity. At the site, there was a posterolateral surgical cicatrix posterior to the fibula from prior surgical ingrowth of fascial fixation and stabilization. Using the previous surgical cicatrix as incision point, approximately 7 cm curvilinear incision was made to the surgical cicatrix using #15 blade with care being taken to identify, avoid, and retract all vital neurovascular structures. This incision was extended down to subcutaneous tissue layers with care being taken to identify, avoid, and retract all vital neurovascular structures. All bleeders were cauterized and ligated as needed and encountered. It should be noted that at the subcutaneous tissue level there was significant scar tissue and fibrous adhesions which were atraumatic technique. At this time, adequate landmark of lateral spine of fibula and peroneal tendon sheath was identified with palpable posterior aspect of fibula plate noted. An incision was made overlying the lateral fibular plate with retraction of peroneal tendons posteriorly and skin and subcutaneous tissue layer anteriorly. At this time, with full visualization of lateral plate and under fluoroscopic evaluation, series of 2.7 and 3.5 mm screws were removed from the fibular plate. The fibular plate was then removed fully intact. At this time, under fluoroscopic evaluation, it was noted that there was an anterior to posterior interfragmentary screw and a posterior to anterior interfragmentary screw, which measured 3.5 mm and these screws were removed and passed from the operative field. Surgical site was then flushed with copious amounts of sterile saline. Through the same surgical incision, attention was then directed to the posterior aspect of the tibia. Peroneal structures were retracted anteriorly, soft tissue structures were extended down to the level of the FHL muscle belly, which was then retracted posteriorly allowing full visualization of the posterolateral surface of the tibia. A pair of 4 partially threaded screws were found and removed. Surgical sites were then flushed with copious amounts of sterile saline. Previous screw holes were then backfilled with Synthes DBM graft. Periosteal structures were reapproximated using 2-0 Vicryl, subcutaneous tissue layers were reapproximated using 3-0 Vicryl and 4-0 Vicryl. Skin was reapproximated using 4-0 Prolene in an interrupted horizontal simple suture type fashion. Attention was then directed to the medial malleolus where under fluoroscopic guidance, the level of two 4 partially threaded screws were evaluated. Surgical cicatrix site was noted along the middle posterior aspect of the medial malleolus from previous surgical site ingress, 2 cm of this surgical cicatrix were used as incision point using #15 blade. This incision was extended down to subcutaneous tissue layers with care being taken to identify, avoid, and retract all vital neurovascular structures. All bleeders were cauterized and ligated as needed and encountered. At this time, one distal malleolar periosteal incision was made overlying the distal tip and limited reflection was performed using a periosteal elevator. Visualization of screw heads and lengths were visualized at this time. Screws were removed and passed from the operative field. Surgical site was then flushed with copious amount of sterile saline. Previous screw canals were backfilled with DBM bone putty. Periosteal structures were reapproximated using combination of 2-0 and 3-0 Vicryl. Subcutaneous tissue layers were reapproximated using 4-0 Vicryl. Skin was reapproximated using 4-0 Prolene in an interrupted simple and horizontal suture type fashion. The patient then received an additional 15 mL of 0.25% Marcaine plain in a local block-type fashion to surgical site and at the level of the ankle. Note that one tourniquet time of 2 hours were reached during procedure and tourniquet was deflated and was not reinflated for the remainder of the procedure. Surgical sites were then dressed with Adaptic, 4x4 gauze, Kerlix, Sergey, Coban, Robert. The patient was placed in a posterior splint. The patient will follow up with Dr. Love in her office on an outpatient basis. POSTOPERATIVE CONDITION: The patient tolerated the anesthesia and procedure well and was escorted to the recovery room with vital signs stable and neurovascular status intact. The patient has no complaints or complications. Kaitlin Miranda DPM Catrachita Love DPM
== END 2017-12-04 | disposition home or self-care (01) ==
LOC: H.OPSURG 11:21 → H.ICU/CCU 20:22 → H.MEDSURG1 21:51 → H.OPSURG 12-04
PROVIDERS: ATTEND Podiatrist Primary Podiatric Medicine
DX: T84.84XA Pain due to internal orthopedic prosthetic devices, implants and grafts, initial encounter (principal); E11.9 Type 2 diabetes mellitus without complications; E66.9 Obesity, unspecified; Y83.1 Surgical operation with implant of artificial internal device as the cause of abnormal reaction of the patient, or of later complication, without mention of misadventure at the time of the procedure; M19.171 Post-traumatic osteoarthritis, right ankle and foot
CPT/HCPCS: 20680; 73610; 82948; 88304; C1713; J0690; J1885; J2001; J2250; J2405; J2704; J3010; J7030

== ENCOUNTER 2018-06-16 20:16 | Emergency (ER) | payer SELFPAY ==
[2018-06-16 20:16] VITALS: BMI 33.5
[2018-06-16 21:35] VITALS: O2SAT 97
[2018-06-17 00:08] LABS: SQUAMOUS EPITHIAL 3 /hpf (0-5); URINE BILIRUBIN NEGATIVE (NEGATIVE); URINE BLOOD MODERATE (NEGATIVE); URINE CLARITY SLIGHTY-CLOUDY (Clear); URINE COLOR YELLOW (YELLOW); URINE GLUCOSE (UA) NEG (NEGATIVE); URINE LEUKOCYTE ESTERASE SMALL Leu/uL (Negative); URINE PROTEIN 30 mg/dL (NEGATIVE); URINE UROBILINOGEN 0.2-1.0 mg/dL (0.2-1.0)
[2018-06-17 00:33] LABS: BASO # 0.1 K/uL (0.0-0.2); BASO % 0.7 % (0.0-2.0); EOS # 0.2 K/uL (0.0-0.7); EOS % 2.5 % (0.0-4.0); HEMOGLOBIN 11.7 g/dL (12.0-16.0); LYMPH # 3.8 K/uL (1.0-4.3); LYMPH % 49.6 % (20.0-40.0); MEAN CELL VOLUME 79.1 fl (81.0-99.0); MEAN CORPUSCULAR HEMOGLOBIN 26.7 pg (27.0-31.0); MEAN CORPUSCULAR HGB CONC 33.7 g/dL (33.0-37.0); MEAN PLATELET VOLUME 8.9 fl (7.2-11.7); MONO # 0.7 K/uL (0.0-0.8); MONO % 9.6 % (0.0-10.0); NEUT # 2.9 K/uL (1.8-7.0); NEUT % 37.6 % (50.0-75.0); NRBC % 0.2 % (0.0-0.0); RBC 4.4 Mil/uL (3.80-5.20); WHITE BLOOD COUNT 7.7 K/uL (4.8-10.8)
[2018-06-17 00:42] LABS: ALB/GLOB RATIO 1.1 (1.0-2.1); ALBUMIN 4.6 g/dL (3.5-5.0); ALT/SGPT 41 U/L (9-52); AST/SGOT 31 U/L (14-36); BLOOD UREA NITROGEN 17 mg/dl (7-17); CALCIUM 8.9 mg/dL (8.4-10.2); GFR NON-AFRICAN AMERICAN > 60; LIPASE 136 U/L (23-300)
--- NOTE | 2018-06-17 01:35 | ED PDOC ---
HPI: Abdomen Time Seen by Provider: 06/16/18 23:25 Chief Complaint (Nursing): Abdominal Pain Chief Complaint (Provider): Abdominal Pain History Per: Patient History/Exam Limitations: no limitations Onset/Duration Of Symptoms: Days (x2) Location Of Pain/Discomfort: Epigastric Associated Symptoms: Nausea, Other (Headache). denies: Vomiting Additional Complaint(s): 48 years old female with history of diabetes presents to ER for evaluation of a bdominal pain and headache associated with nausea since yesterday. Patient reports she felt hot all day today that she believes she might have a fever. She states she took Motrin but did not take temperature. Patient reports pain in epigastric area radiating backwards. She describes headaches as throbbing non thunderclap and not maximal on onset. Patient denies vomiting. PMD: [facility] Past Medical History Reviewed: Historical Data, Nursing Documentation, Vital Signs Vital Signs: Last Vital Signs Temp 98.4 F 06/16/18 21:33 Pulse 114 H 06/16/18 21:33 Resp 16 06/16/18 21:33 BP 131/78 06/16/18 21:33 Pulse Ox 97 06/16/18 21:33 - Medical History PMH: Diabetes, Fractures (rt ankle), Gall Bladder Disease, Kidney Stones (questionable hx), Chronic Kidney Disease - Surgical History Surgical History: Cholecystectomy, - Family History Family History: States: Unknown Family Hx - Home Medications Home Medications: Ambulatory Orders Medication Instructions Recorded metFORMIN [glucOPHAGE] 500 mg PO BID 04/05/17 Docusate Sodium [Dulcolax Stool 100 mg PO DAILY #12 capsule 06/17/18 Softener] Nitrofurantoin Macrocrystals 100 mg PO BID 5 Days cap 06/17/18 [Macrobid] Sod Phos,M-B/Na Phos,Di-Ba [Fleet 133 ml RC DAILY #5 enema 06/17/18 Enema] - Allergies Allergies/Adverse Reactions: Allergies Allergy/AdvReac Type Severity Reaction Status Date / Time No Known Allergies Allergy Verified 11/09/17 10:29 Review of Systems ROS Statement: Except As Marked, All Systems Reviewed And Found Negative Gastrointestinal: Positive for: Nausea, Abdominal Pain (epigastric). Negative for: Vomiting Neurological: Positive for: Headache (throbbing) Physical Exam - Reviewed Nursing Documentation Reviewed: Yes Vital Signs Reviewed: Yes - Physical Exam Appears: Positive for: Well, No Acute Distress Head Exam: Positive for: ATRAUMATIC, NORMOCEPHALIC Skin: Positive for: Normal Color, Warm, Dry Eye Exam: Positive for: Normal appearance, EOMI, PERRL Neck: Positive for: Normal, Painless ROM, Supple Cardiovascular/Chest: Positive for: Regular Rate, Rhythm. Negative for: Murmur Respiratory: Positive for: Normal Breath Sounds. Negative for: Respiratory Distress Gastrointestinal/Abdominal: Positive for: Soft, Tenderness (to palpation in epigastric area), Other (Obese abdomen). Negative for: Guarding, Rebound Back: Positive for: Normal Inspection. Negative for: L CVA Tenderness, R CVA Tenderness Extremity: Positive for: Normal ROM. Negative for: Pedal Edema, Deformity Neurological/Psych: Positive for: Awake, Alert, Oriented (x3). Negative for: Motor/Sensory Deficits - Laboratory Results Result Diagrams: 06/16/18 23:59 06/16/18 23:59 Lab Results: Total Bilirubin 0.5 mg/dl (0.2-1.3) 06/16/18 23:59 AST 31 U/L (14-36) 06/16/18 23:59 ALT 41 U/L (9-52) 06/16/18 23:59 Alkaline Phosphatase 100 U/L (38-126) 06/16/18 23:59 Total Protein 8.9 G/DL (6.3-8.2) H 06/16/18 23:59 Albumin 4.6 g/dL (3.5-5.0) 06/16/18 23:59 Globulin 4.3 gm/dL (2.2-3.9) H 06/16/18 23:59 Albumin/Globulin Ratio 1.1 (1.0-2.1) 06/16/18 23:59 Lipase 136 U/L (23-300) 06/16/18 23:59 Urine Color Yellow (YELLOW) 06/16/18 23:50 Urine Clarity Slighty-cloudy (Clear) 06/16/18 23:50 Urine pH 6.0 (5.0-8.0) 06/16/18 23:50 Ur Specific [place] 1.020 (1.003-1.030) 06/16/18 23:50 Urine Protein 30 mg/dL (NEGATIVE) 06/16/18 23:50 Urine Glucose (UA) Neg mg/dL (NEGATIVE) 06/16/18 23:50 Urine Ketones Negative mg/dL (NEGATIVE) 06/16/18 23:50 Urine Blood Moderate (NEGATIVE) 06/16/18 23:50 Urine Nitrate Negative (NEGATIVE) 06/16/18 23:50 Urine Bilirubin Negative (NEGATIVE) 06/16/18 23:50 Urine Urobilinogen 0.2-1.0 mg/dL (0.2-1.0) 06/16/18 23:50 Ur Leukocyte Esterase Small Celest[place]/uL (Negative) 06/16/18 23:50 Urine Microscopic WBC 7 /hpf (0-5) H 06/16/18 23:50 Ur Squamous Epith Cells 3 /hpf (0-5) 06/16/18 23:50 - ECG O2 Sat by Pulse Oximetry: 97 (RA) Pulse Ox Interpretation: Normal Medical Decision Making Medical Decision Making: Time: 2344 A/P: 48 yo female with nonspecific abdominal pain and headache --Headache most likely indicative of migraine retention --Abdominal pain possibly related to gas or constipation --Gastritis vs. GERD, unlikely small bowel obstruction or any other acute abdominal pathology 0127 Abdomen Series Findings: Mild amount of fecal residue is noted in the colon. Mild degenerative levoscoliosis apex at L3. Mild diffuse spondylosis. Impression: Mild amount of fecal residue in the large bowels. 230 --PAtient reports complete resolution of symptoms --INformed of results --Advised fluids, medications to treat specific conditions, and urgent follwouwp in clinic --Very well appearing upon discharge Scribe Attestation: Documented by Daphney Reyes, acting as a scribe for Delvin Ndiaye MD. Provider Scribe Attestation: All medical record entries made by the Scribe were at my direction and personally dictated by me. I have reviewed the chart and agree that the record accurately reflects my personal performance of the history, physical exam, me dical decision making, and the department course for this patient. I have also personally directed, reviewed, and agree with the discharge instructions and disposition. Disposition - Clinical Impression Clinical Impression: Constipation, UTI (urinary tract infection) - Disposition Referrals: Prasanna Beltran MD [Family Provider] - Disposition: Routine/Home Disposition Time: 02:30 Condition: IMPROVED Prescriptions: Docusate Sodium [Dulcolax Stool Softener] 100 mg PO DAILY #12 capsule Nitrofurantoin Macrocrystals [Macrobid] 100 mg PO BID 5 Days cap Sod Phos,M-B/Na Phos,Di-Ba [Fleet Enema] 133 ml RC DAILY #5 enema Instructions: Urinary Tract Infections in Adults, Constipation in Adults Forms: [facility] (Spanish) Print Language: SAO TOMEAN
[2018-06-17 03:18] VITALS: BP 108/61; PULSE 97; RESP 17; TEMP 98.3
--- NOTE | 2018-06-17 08:32 | RAD ---
Date of service: 06/16/2018 PROCEDURE: Radiographs of the chest and abdomen (obstructive series) HISTORY: hx of geoffrey, abd pain COMPARISON: No prior. TECHNIQUE: AP radiograph of the chest, with upright and supine radiographs of the abdomen. 3 views obtained. FINDINGS: CHEST: Lungs: Clear. Cardiovascular: Normal size heart. No pulmonary vascular congestion. No aortic atherosclerotic calcification present Pleura: No pleural fluid. No pneumothorax. Other findings: None. ABDOMEN AND PELVIS: Bowel: Unremarkable bowel gas pattern. No evidence of mechanical obstruction. A moderate amount of retained fecal material seen at the proximal and middle thirds of the large bowel. Free air: None. Bones: Unremarkable. Other findings: None. IMPRESSION: Unremarkable radiographs of chest and abdomen. No evidence of mechanical bowel obstruction.
== END 2018-06-17 02:38 | disposition home or self-care (01) ==
LOC: H.ER 20:16
DX: N39.0 Urinary tract infection, site not specified (principal); K59.00 Constipation, unspecified; E11.9 Type 2 diabetes mellitus without complications; Z79.84 Long term (current) use of oral hypoglycemic drugs
CPT/HCPCS: 74022; 80053; 81003; 81025; 83690; 85025; 96374; 96375; 99284; J1885; J2765